=== PATIENT | male | born 1965 | race Caucasian/White ===

== ENCOUNTER → 2021-09-15 02:17 | Outpatient (CLI) | payer MEDICARE, SELFPAY ==
[2021-09-15 16:40] LABS: SARS-CoV-2 RNA PCR Negative
== END ==
PROVIDERS: PCP Internal Medicine; Visit Provider Internal Medicine
DX: J01.90 Acute sinusitis, unspecified (principal); Z20.822 Contact with and (suspected) exposure to COVID-19
CPT/HCPCS: C9803; U0003; U0005

== ENCOUNTER 2022-11-15 08:06 | Outpatient (CLI) | payer MEDICARE, SELFPAY ==
--- NOTE | 2022-11-27 20:25 | WPDSLEEPSTUD ---
Sleep Study Date of Study: 11/15/22 Ordering Provider: Alejandro Castillo MD Interpreting Physician: Nilda Curtis DO Sleep Study Type: CPAP Titration Height: 1.78 m Weight: 95.254 kg Body Mass Index: 30.1 Neck Circumference (inches): 16 [place]: 4 Reason for Sleep Study The patient had a WatchPAT home sleep study on 08/22/2022 that showed an overall AHI of 8.5 with desaturation down to 89% using AASM criteria. Sleep History The patient is a 57 year male with hypertension, hypothyroidism, anxiety, bipolar disorder, and PTSD that had a sleep study ordered by his enterprise mobility architect for evaluation of sleep apnea. The home sleep study was positive for mild sleep apnea. The patient was referred to our sleep lab for a PAP titration study. He denies awakening from sleep short of breath. He denies awakening at night with heartburn, belching or cough. He occasionally snores but it is never loud enough that others complain. He constantly has trouble sleeping when he has a cold. He denies waking up gasping for air throughout the night. He denies having breathing problems at night observed by himself or others. He frequently sweats excessively at night. He frequently has heart palpitations or irregular heartbeats during the night. He occasionally falls asleep during the day but never while driving. He denies sleep paralysis, cataplexy and hypnagogic / hypnopompic hallucinations. He denies having trouble at school or work due to sleepiness. He occasionally feels afraid of going to sleep. He denies having nightmares. He denies remembering his dreams. He occasionally has thoughts racing through his mind. He frequently feels sad, depressed and anxious. He occasionally has muscular tension. He rarely notices parts of his body jerk. He occasionally kicks during the night. He denies having crawling and aching feelings in his legs. He frequently has leg pain during the night. He constantly grinds his teeth during sleep and occasionally awakens with morning jaw pain. He frequently is bothered by pain during the day and occasionally awakened by pain during the night. He denies waking up feeling stiff in the morning. He denies waking up with sore or achy muscles. He occasionally wakes up with pain in the neck, spine and other joints. The patient goes to bed between 2-3 a.m. on both weekdays and weekends. It takes him 30 minutes to fall asleep. He wakes up twice throughout the night to urinate and it takes 5-10 minutes to fall back asleep. He wakes up between 9-10 a.m. on both weekdays and weekends. He typically gets 5 hours of sleep per night. He will stay in bed for 10 minutes after waking up in the morning. He currently lives with his parents. He denies consuming any caffeinated beverages within 2 hours of bedtime. He does not engage in physical exercise before bedtime. He will read before falling asleep. He will take naps in the afternoon or the evening and they are refreshing. He consumes 1-2 caffeinated beverages per day. He denies tobacco, alcohol and recreational drug use. [facility] Family History Family History Father Hypertension Family history of malignant neoplasm of urinary bladder Social History Social History Smoking status: Never smoker Alcohol intake: never Sleep Procedure This test was performed using the INTEX Program SleepGoPollGo multiple channel system including EOG, EEG, submental EMG, EKG, nasal and oral airflow using thermistors and nasal pressure sensors, chest and abdominal belts for body position data, and pulse oximetry. Video monitoring was also performed. The study was scored using [facility] guidelines. Sleep Architecture The patient had a total recording time of 454.2 minutes and total sleep time of 247.5 minutes.? The sleep efficiency was 54.5%.? Sleep latency was 25.1 minutes and REM latency was 309?minute
[2022-11-27 20:30] VITALS: BMI 30.1
== END 2022-11-16 06:32 | disposition home or self-care (01) ==
LOC: ANHCSM 08:08
PROVIDERS: PCP Internal Medicine; Visit Provider Internal Medicine Cardiovascular Disease
DX: G47.33 Obstructive sleep apnea (adult) (pediatric) (principal); F43.10 Post-traumatic stress disorder, unspecified; E03.9 Hypothyroidism, unspecified; I10 Essential (primary) hypertension; R53.83 Other fatigue
CPT/HCPCS: 95811

== ENCOUNTER 2023-01-03 09:48 | Emergency (ER) | payer MEDICARE, SELFPAY ==
[2023-01-03 10:02] VITALS: BP 162/77; PULSE 58; RESP 20; TEMP 36.2; O2SAT 100
--- NOTE | 2023-01-03 12:55 | ED.GENADULT ---
HPI - General Adult General Chief complaint: Unspecified Stated complaint: mouth, throat pain Time Seen by Provider: 01/03/23 12:08 History of Present Illness HPI narrative: Patient is a 57-year-old male presenting with a rash. Patient states that he was diagnosed with a rash about a month ago. He was treated with nystatin which resulted in his tongue swelling about a day later. States that it eventually resolved and then his field reviewer started him on a new inhaler that again brought the thrush back. States that he was not treated at all this time and it resolved on its own. Unfortunately, over the weekend he again had a flare of thrush. States there is white stuff in his throat and under his tongue and it hurts. He called his primary care doctor who told him to come to the ER since he reacted to nystatin last time. He denies any anaphylactic symptoms. He denies any other complaints at this time other than dysphagia. Related Data Home Medications Medication Instructions Recorded Confirmed atenolol 25 mg tablet mg 01/03/23 budesonide-formoterol HFA 160 inhalation 01/03/23 01/03/23 mcg-4.5 mcg/actuation aerosol inhaler (Symbicort) clonazepam 0.5 mg tablet mg 01/03/23 inhalational spacing device 01/03/23 01/03/23 (ProChamber) lamotrigine 100 mg tablet mg 01/03/23 levothyroxine 25 mcg tablet mcg 01/03/23 lisinopril 10 mg tablet mg 01/03/23 lisinopril 20 tablet 01/03/23 mg-hydrochlorothiazide 12.5 mg tablet losartan 50 mg-hydrochlorothiazide tablet 01/03/23 12.5 mg tablet nystatin 100,000 unit/mL oral 01/03/23 suspension Allergies Allergy/AdvReac Type Severity Reaction Status Date / Time latex Allergy Unknown Unknown Verified 01/03/23 11:30 budesonide Allergy Hives Verified 01/03/23 11:31 desoximetasone Allergy Hives Verified 01/03/23 11:31 Review of Systems Review of Systems: All systems reviewed & are unremarkable except as noted in HPI and below PMFSH Family History Family History Father Hypertension Family history of malignant neoplasm of urinary bladder Social History Social History Smoking status: Never smoker Alcohol intake: never Exam Narrative: GENERAL: Well-appearing, in no acute distress, pleasant and cooperative HEAD: Normocephalic, atraumatic. EYES: PERRLA and EOMI. ENT: + Oral and pharyngeal thrush, no other abnormalities noted NECK: Supple. CHEST: Clear to auscultation. No respiratory distress. HEART: Regular rate and rhythm ABDOMEN: Nondistended EXTREMITIES: Normal range of motion. No edema. SKIN: Warm, dry, no rash. NEURO: Alert and oriented x3. PSYCH: Normal mood and affect. Course Vital Signs Vital signs: Vital Signs Temperature 97.1 F L 01/03/23 10:02 Pulse Rate 58 L 01/03/23 10:02 Respiratory Rate 01/03/23 10:02 Blood Pressure 162/77 H 01/03/23 10:02 Pulse Oximetry 100 01/03/23 10:02 Oxygen Delivery Room Air 01/03/23 10:02 Temperature 97.1 F L 01/03/23 10:02 Pulse Rate 58 L 01/03/23 10:02 Respiratory Rate 20 01/03/23 10:02 Blood Pressure 162/77 H 01/03/23 10:02 Pulse Oximetry 100 01/03/23 10:02 Oxygen Delivery Room Air 01/03/23 10:02 Medical Decision Making [facility] Narrative Medical decision making narrative: Patient is a 57-year-old male presenting with oral and pharyngeal thrush. Vitals are stable. Exam remarkable for the above. States that he had a bad reaction to nystatin a few weeks ago so when he called his PCP today he was told to come to the ER. Exam is concerning for thrush. We will start him on systemic fluconazole. He has an appointment with his field reviewer on Saturday which he was advised to keep. Recommended PCP follow-up and appropriate return precautions given. Discharged in stable condition. Differential Diagnosis Differential Diagnosis: Thrush, pharyngitis
== END 2023-01-03 13:15 | disposition home or self-care (01) ==
PROVIDERS: Emergency Provider Emergency Medicine; PCP Internal Medicine
DX: B37.0 Candidal stomatitis (principal); B37.81 Candidal esophagitis
CPT/HCPCS: 99283

== ENCOUNTER 2023-11-01 14:09 | Outpatient (CLI) | payer MEDICARE, SELFPAY ==
[2023-11-01 15:27] LABS: Strep Group A RT-PCR NOT DETECTED (Negative)
[2023-11-01 15:39] LABS: Influenza A QL RT-PCR Negative (Negative); Influenza B QL RT-PCR Negative (Negative); RSV RNA, RT-PCR Negative (Negative); SARS-CoV-2 RNA PCR Negative (Negative)
== END 2023-11-01 14:10 | disposition home or self-care (01) ==
LOC: ANHLAB 14:12
PROVIDERS: PCP Internal Medicine; Visit Provider Internal Medicine
DX: J06.9 Acute upper respiratory infection, unspecified (principal); Z20.822 Contact with and (suspected) exposure to COVID-19
CPT/HCPCS: 87637; 87651

== ENCOUNTER 2024-07-18 20:04 | Emergency (ER) | payer MEDICARE, SELFPAY ==
--- NOTE | ~2024-07-18 | XR_ITS ---
XR knee LT 3V Ordering provider: Jorge L Ortega PA-C History: . fall, L knee pain . Comparison: None. FINDINGS: BONES: No acute fracture or dislocation. JOINT SPACES: Normal. SOFT TISSUES: Normal. IMPRESSION: No acute osseous abnormality left knee. Reviewed, dictated and finalized at location A.
--- NOTE | ~2024-07-18 | CT_ITS ---
CT brain wo con Ordering provider: Zenobia Munroe MD History: 59 years Male with . fall . Comparison: None. Technique: CT of the head without contrast. Radiation reduction technique utilized.The dose-length pr oduct was 681 mGy-cm. FINDINGS: BRAIN PARENCHYMA AND CSF SPACES: No midline shift, mass effect or hemorrhage. The brain parenchyma a nd CSF spaces are otherwise normal. VISUALIZED PARANASAL SINUSES: Well aerated. MASTOIDS: Well aerated. BONES: The bones appear intact. SOFT TISSUES: Visualized nasopharynx is normal. Superficial soft tissues are normal. IMPRESSION: No acute intracranial findings. Reviewed, dictated and finalized at location A.
--- NOTE | ~2024-07-18 | XR_ITS ---
XR elbow LT min 3V Ordering provider: Jorge L Ortega PA-C History: . fall, L elbow injury . Comparison: None. FINDINGS: BONES: No acute fracture or dislocation. JOINT SPACES: Normal. SOFT TISSUES: Normal. No definite joint effusion. IMPRESSION: No acute osseous abnormality left elbow. Reviewed, dictated and finalized at location A.
--- NOTE | ~2024-07-18 | CT_ITS ---
CT facial & cervical spine wo Ordering provider: Zenobia Munroe History: . fall . Comparison: None. Technique: Thin slice axial CT of the facial bones was performed without contrast. Coronal and sagit blanche reformatted images were also obtained. . Automated exposure control and iterative reconstruction technique were employed. The dose-length product was 416.05 mGy-cm. FINDINGS: PARANASAL SINUSES: Well aerated. BONES: No facial fracture including no nasal bone fracture. ORBITS AND SUPERFICIAL SOFT TISSUES: The optic globes and orbits are normal. The superficial soft tis sues are normal. VISUALIZED MASTOIDS: Well aerated. LIMITED VISUALIZED BRAIN PARENCHYMA: Normal. IMPRESSION: No facial fracture. The CT facial & cervical spine wo Ordering provider: Zenobia Munroe History: . fall . Comparison: None. Technique: CT of the cervical spine was performed without contrast. Sagittal and coronal reformatted images were also obtained and reviewed. Automated exposure control and iterative reconstruction kuldip hnique were employed. The dose-length product was 416.05 mGy-cm. FINDINGS: VERTEBRAE: No subluxation or acute fracture. The occipital condyles are intact. Degenerative changes of the spine. DISC SPACES: Slight narrowing of the disc C5-C6. Multilevel uncovertebral joint osteoarthritic change s. Narrowing of the right foramen at the level of C3-C4. PARASPINOUS SOFT TISSUES: Normal. IMPRESSION: No acute osseous abnormality cervical spine. Reviewed, dictated and finalized at location A. IMPRESSION: No facial fracture. The CT facial & cervical spine wo Ordering provider: Zenobia Munroe History: . fall . Comparison: None. Technique: CT of the cervical spine was performed without contrast. Sagittal a nd coronal reformatted images were also obtained and reviewed. Automated expos ure control and iterative reconstruction technique were employed. The dose-humphrey th product was 416.05 mGy-cm. FINDINGS: VERTEBRAE: No subluxation or acute fracture. The occipital condyles are intact. Degenerative changes of the spine. DISC SPACES: Slight narrowing of the disc C5-C6. Multilevel uncovertebral joint osteoarthritic changes. Narrowing of the right foramen at the level of C3-C4. PARASPINOUS SOFT TISSUES: Normal.
[2024-07-18 20:05] VITALS: BP 180/98; PULSE 94; RESP 16; TEMP 36.2; O2SAT 100
--- OUTSIDE RECORDS SUMMARY | 2024-07-18 20:06 | XMS_ITS | Continuity of Care Document ---
Author Organization [facility] Address [address] [place] [address] Phone Care Team Providers Care Business Travel Consultant Name Role Phone Oracio Newman MD Unavailable Unavailable Allergies, Adverse Reactions, Alerts Substance Reaction Status Criticality No Known Allergies Active No Inform ation Medications Medication Instructions Dosage Effective Dates (start - stop) Status Comments lisinopril 10 mg tablet take 1 tablet by oral route every day 10 MG - Active Tirosint 50 mcg capsule take 1 capsule by oral route every day 50 MCG - Active lamotrigine 100 mg tablet take 1 tablet by oral route every day 100 MG - Active atenolol 25 mg tablet take 1 tablet by o ral route every day 25 MG - Active Abilify 5 mg tablet take 1 tablet by ora l route every day 5 MG - Active Procedures Procedure Date POSTOP FOLLOW-UP VISIT OFFICE/OUTPATIENT VISIT [facility] Advance Directives Directive Yes / No Effective Date File Name No Information Encounters Encounter Description Practice Location Reason(s) For Visit Diagnoses Date Provider Providers Copied on Encounter [facility], [address] [place] [address], [id number], tel:[phone] [facility] Encounter for other orthopedic aftercare 8 Trent Narayanan. [address] [place] [address], [id number] . tel: [phone] OFFICE/OUTPAT IENT VISIT [facility], [address] [place] [address], [address], tel:[phone] [facility] Carpal tunnel syndrome of right wristBody mass index (BMI) 27.0-27.9, adult 8 Trent Narayanan. [address] [place], [place], [id number] . tel: [phone] [facility], [address], [place], [address], tel:[phone] [facility] Carpal tunnel syndrome of right wrist 8 Trent Narayanan. [address] [place], [place], [id number] . tel: [phone] Family History Family Member Type Diagnosis Age At Onset Mother Problem (finding) Alive and well Payers Payer name Insurance type Covered republican ID Davi rojas(s) Medicare E2 [id number] Aetna Life Medicare Supplement Plan [id number] Social History Type Description Quantity Date Captured Comments Alcohol Use Details Unknown Caffeine Use Details Unknown Tobacco Use Status No Information Smoking Status Never smoker Sex Male Chief Complaint And Reason For Visit No Information Reason For Referral Reason For Referral No Information Plan Of Treatment Date Type Action Status Referral Ordered: ELECTROCARDIOGRAM COMPLETE ordered History Of Present Illness Encounter Date Complaint History Of Prese nt Illness No Information Functional Status Date Functional Assessmen t No Information Instructions Date Instruction Additional Infor mation Take medication as directed. Rel ated to Other specified postprocedural states Activity as tolerated. Related t o Other specified postprocedural states Giving encouragement to exercise Related to Body mass index (BMI) 27.0-27.9, adult Apply ice as instructed. Related to Carpal tunnel syndrome of right wrist Activity as tolerated. Related t o Carpal tunnel syndrome of right wrist Take medications as directed. Re lated to Carpal tunnel syndrome of right wrist Splint as needed. Related to Car pal tunnel syndrome of right wrist Ice as needed. Related to Carpa l tunnel syndrome of right wrist Assessments Type Assessment Date assessment Encounter for other orthopedic a ftercare Patient Care Teams Name Effective Dates (start - stop) Status Members No Information
--- OUTSIDE RECORDS SUMMARY | 2024-07-18 20:06 | XMS_ITS | Encounter Summary ---
Author Organization [facility] Address [address] [place] [address] Care Team Providers Care Radio Equipment Installer Name Role Phone Marleny Orozco MD Primary Care Provider Encounter Details Date Type Department Care Team (Late st Contact Info) Description 09/11/2006 Outpatient [facility] [address] [place] [address] [address]. [place], [place] [id number] Mallika Schmitz MD Social History Tobacco Use Types Packs/Day Years Used Date Smoking Tobacco: Never Assessed Sex and Gender Information Value Date Recorded Sex Assigned at Not on file Legal Sex Male 4:01 AM PHARMACY ACCOUNT DIRECTOR Gender Identity Not on file Sexual Orientation Not on file documented as of this encounter Plan of Treatment Not on file documented as of this encounter Visit Diagnoses Not on filedocumented in this encounter Care Teams Radio Equipment Installer Relationship Specialty Start Date End Date Marleny Orozco MD PCP - General Internal Medicine 12/17/17 documented as of this encounter
--- OUTSIDE RECORDS SUMMARY | 2024-07-18 20:06 | XMS_ITS | Encounter Summary ---
Author Organization [facility] Address [address] [place] [address] Care Team Providers Care Com Writer Name Role Phone Marleny Orozco MD Primary Care Provider Encounter Details Date Type Department Care Team (Latest Contact Info) Description 07/21/1999 Outpatient [facility] Luis Alberto Murillo MD [address] [place] [address] Depressive disorder, not elsewhere classified (Primary Dx) Social History Tobacco Use Types Packs/Day Years Used Date Smoking Tobacco: Never Assessed Sex and Gender Information Value Date Recorded Sex Assigned at Not on file Legal Sex Male 4:01 AM GROUP ACCOUNT DIRECTOR Gender Identity Not on file Sexual Orientation Not on file documented as of this encounter Plan of Treatment Not on file documented as of this encounter Visit Diagnoses Diagnosis Depressive disorder, not elsewhere classified- Primary documented in this encounter Care Teams Com Writer Relationship Specialty Start Date End Date Marleny Orozco MD PCP - General Internal Medicine 12/17/17 documented as of this encounter
--- OUTSIDE RECORDS SUMMARY | 2024-07-18 20:06 | XMS_ITS | Encounter Summary ---
Author Organization [email or web address] Address [address] [place] [address] Care Team Providers Care Grey Iron Molder Name Role Phone Marleny Orozco MD Primary Care Provider Encounter Details Date Type Department Care Team (Late st Contact Info) Description 10/10/2006 Outpatient [facility] [address] [place] [address] 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
--- OUTSIDE RECORDS SUMMARY | 2024-07-18 20:07 | XMS_ITS | Referral Summary ---
Author Organization [address] Address [address] [place] [id number] Care Team Providers Care Graduate Rn Name Role Phone Del Orozco MD Primary Care Provide r Allergies Active Allergy Reactions Criticality Noted Date Comments Adhesive Rash Medium 09/14/2019 Budesonide Rash Medium 01/08/2024 Ciprofloxacin Other (See comments) Low 01/08/2024 Desoximetasone Rash Medium 01/08/2024 Hay Fever And Allergy Relief Eye irritation,Headache,Rhin itis Low 09/14/2020 Mupirocin Rash Medium 01/08/2024 Omeprazole Rash Medium 01/08/2024 Medications lamoTRIgine (LaMICtal) 100 mg tablet take 3 Tablet (300MG) by ORAL route every day 90 6 03/02/2016 Active atenolol (TENORMIN) 25 mg tablet Take 1 tablet (25 mg total) by mouth 2 (two) times a day. 180 tablet 3 11/08/2016 Active multivitamin capsule Take 1 capsule by mouth daily Active clonazePAM (KlonoPIN) 0.5 mg tablet TAKE 1 2 (ONE HALF) TABLET BY MOUTH TWICE DAILY FOR 30 DAYS 08/17/2019 Active levothyroxine (SYNTHROID) 25 mcg tablet Take 1 tablet (25 mcg total) by mouth daily 12/23/2020 Active losartan-hydroch lorothiazide (HYZAAR) 100-25 mg per tablet Take 1 tablet by mouth daily Active melatonin 5 mg tablet Active ibuprofen 200 mg tab/cap Take by mouth every 6 (six) hours as needed for pain Active tamsulosin (FLOMAX) 0.4 mg extended release capsuleIndicatio ns:benign prostatic hyperplasia with lower urinary tract sx Take 1 capsule (0.4 mg total) by mouth daily 90 capsule 3 02/19/2024 02/14/20 25 Active Active Problems Problem Noted Date Diagnosed Date Chronic prostatitis 02/22/2023 History of BPH 02/08/2023 Recurrent UTI (urinary tract infection) 02/09/20 Nephrolithiasis 02/08/2023 Hypertensive disorder 03/17/2021 Paronychia of toe of left foot 12/22/2020 Lower urinary tract symptoms (LUTS) 08/06/2019 Overview (08/06/2019): Added automatically from request for surgery [id number] Benign prostatic hyperplasia with lower urinary tract symptoms 08/06/2019 Overview (08/06/2019): Added automatically from request for surgery [id number] Accessory navicular bone of foot 04/30/2019 Contusion of toe with damage to nail 04/30/2019 Curly toe 04/30/2019 Spinal cord effacement/borde rline compression without myelopathy 07/23/2018 Spondylosis of cervical ryan on without myelopathy or radiculopathy 07/23/2018 Bilateral carpal tunnel syndrome 10/25/2017 Bipolar disorder 05/01/2017 Sensorineural hearing loss (SNHL) of both ears 0 11/20/2016 Assessment & Plan (11/20/2016 3:14 PM CDT): Audiogram today shows normal hearing sloping to mild sensorineural hearing los sin both ears. I have recommended patient wear noise protection if he participates in shooting. Follow up with annual hearing test or as needed for any perceived change in hearing. Tinnitus 11/20/2016 Assessment & Plan (11/20/2016 3:13 PM CDT): Recommend noise masking at night. Impacted cerumen 09/07/2014 Overview (07/19/2016): Cerumen impaction Assessment & Plan (11/20/2016 3:15 PM CDT): Bilateral cerumen impaction removed by irrigation and suction. Patient tolerated this without difficulty. Mild irritation of ear canals noted. Patient treated with DermOtic and intructed to avoid Q-tips. Follow up for annual or prn cleaning. Immunizations Immunization Administration Dates Next Due Influenza, Trivalent, IM (MDV) 01/20/2015 Social History Tobacco Use Types Packs/Day Years Used Date Smoking Tobacco: Never Smokeless Tobacco: Never Alcohol Use Standard Drinks/Week Comments No 0 (1 standard drink = 0.6 oz pur e alcohol) Sex and Gender Information Value Date Recorded Sex Assigned at Not on file Legal Sex Male 12:03 PM PENAL OFFICER Gender Identity Male 09/14/2019 9:01 AM CDT Sexual Orientation Straight 09/14/2019 9: 01 AM CDT Last Filed Vital Signs Vital Sign Reading Time Taken Comments Blood Pressure 152/85 03/03/2019 12:56 PM PENAL OFFICER Pulse 68 03/03/2019 12:56 PM PENAL OFFICER Temperature 37 C (98.6 F) 09/14/2019 10:20 AM CDT Respiratory Rate - - Oxygen Saturation 98% 10/30/2016 11:28 AM CDT Inhaled Oxygen Concentration - - Weight 89.8 kg (198 lb) 03/17/2021 9:57 AM PENAL OFFICER Height 177.8 cm (5' 10 ) 03/17/2021 9:57 AM PENAL OFFICER Body Mass Index 28.41 03/17/2021 9:57 AM PENAL OFFICER Plan of Treatment Not on file Procedures Procedure Name Priority Date/Time Associated Diagnosis Comments PSA SCREEN Routine 03/29/2020 9:40 AM PENAL OFFICER Hypertrophy of prostate with urinary obstruction HEPATITIS PANEL, ACUTE Routine 10/24/2016 9:04 AM CDT from Last 3 Months or Most Recently Relevant to Health Maintenance Results * PSA screen (03/29/2020 9:40 AM PENAL OFFICER) PSA 1.4 0.0 - 4.0 ng/mL [facility] - 01 Comment: Lizet ECLIA methodology. According to the [place] [employer], Serum PSA should decrease and remain at undetectable levels after radical prostatectomy. The AUA defines biochemical recurrence as an initial PSA value 0.2 ng/mL or greater followed by a subsequent confirmatory PSA value 0.2 ng/mL or greater. Values obtained with different assay methods or kits cannot be used interchangeably. Results cannot be interpreted as absolute evidence of the presence or absence of malignant disease. Blood specimen (specimen) 03/29/2020 9:40 AM PENAL OFFICER 03/29/2020 Narrative [facility] - 03/30/2020 8:14 AM PENAL OFFICER Performed at: [facility] [id number] Commercial Accountant: Pito Posadas PhD, Phone: [phone] Long Lema MD LAB BLOOD ORDERABLE S Final Result Performing Organization Address [facility] Co de Phone Number [facility] - * Hepatitis panel, acute (10/24/2016 9:04 AM CDT) Hep A IgM Negative Negative [facility] - 01 HepBsAg Negative Negative [facility] - 01 Hep B core IgM Negative Negative [facility] - 01 Hep C Ab <0.1 0.0 - 0.9 s/co ratio [facility] - 01 Comment: Negative: < 0.8 Indeterminate: 0.8 - 0.9 Positive: > 0.9 The CDC recommends that a positive HCV antibody result be followed up with a HCV Nucleic Acid Amplification test ([id number]). Blood specimen (specimen) 10/24/2016 9:04 AM CDT 10/24/2016 Narrative [facility] - 10/25/2016 4:11 AM CDT Performed at: [facility] [id number] Commercial Accountant: Pito Posadas PhD, Phone: [phone] Darron De La Torre LAB MICROBIOLOGY - GENERAL ORDER EVARISTO Final Result Performing Organization Address [facility] Co de Phone Number [facility] - 01 from Last 3 Months or Most Recently Relevant to Health Maintenance Insurance T SENIOR SUPPLEMENT MEDICARE T SENIOR SUPPLEMENT MEDICARE MEDICARE AET[employer] SENIOR SUPPLEMENT Care Teams Graduate Rn Relationship Specialty Start Date End Date Del Orozco MD [address] [address] PCP - General Internal Medicine 02/27/19
--- OUTSIDE RECORDS SUMMARY | 2024-07-18 20:07 | XMS_ITS | Encounter Summary ---
Author Organization [facility] Address [address] [place] [address] Care Team Providers Care Keyboard Specialist Name Role Phone Del Orozco MD Primary Care Provide r Encounter Details Date Type Department Care Team (Late st Contact Info) Description 10/01/2019 Telephone [facility] [address] [place] [address] Keiry Duran [place] Social History Tobacco Use Types Packs/Day Years Used Date Smoking Tobacco: Never Smokeless Tobacco: Never Alcohol Use Standard Drinks/Week Comments No 0 (1 standard drink = 0.6 oz pur e alcohol) Sex and Gender Information Value Date Recorded Sex Assigned at Not on file Legal Sex Male 12:03 PM CLAY STAIN 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
--- OUTSIDE RECORDS SUMMARY | 2024-07-18 20:07 | XMS_ITS | Encounter Summary ---
Author Organization [facility] Address [address] [place] [address] Care Team Providers Care Websphere Process Server Developer Name Role Phone Marleny Orozco MD Primary Care Provider Encounter Details Date Type Department Care Team (Late st Contact Info) Description 01/10/2007 Outpatient [facility] [address] [place] [address] [place] [address] Mallika Schmitz MD Social History Tobacco Use Types Packs/Day Years Used Date Smoking Tobacco: Never Assessed Sex and Gender Information Value Date Recorded Sex Assigned at Not on file Legal Sex Male 4:01 AM CHIEF STRATEGY OFFICER Gender Identity Not on file Sexual Orientation Not on file documented as of this encounter Plan of Treatment Not on file documented as of this encounter Visit Diagnoses Not on filedocumented in this encounter Care Teams Websphere Process Server Developer Relationship Specialty Start Date End Date Marleny Orozco MD PCP - General Internal Medicine 12/17/17 documented as of this encounter
--- OUTSIDE RECORDS SUMMARY | 2024-07-18 20:07 | XMS_ITS | Encounter Summary ---
Author Organization [facility] Address [address] [place] [address] Care Team Providers Care Cardboard Inserter Name Role Phone Marleny Orozco MD Primary Care Provider Encounter Details Date Type Department Care Team (Late st Contact Info) Description 03/27/2007 Outpatient [facility] [address] [place] [address] [place] [address] Mallika Schmitz MD Social History Tobacco Use Types Packs/Day Years Used Date Smoking Tobacco: Never Assessed Sex and Gender Information Value Date Recorded Sex Assigned at Not on file Legal Sex Male 4:01 AM PLAYGROUND MONITOR Gender Identity Not on file Sexual Orientation Not on file documented as of this encounter Plan of Treatment Not on file documented as of this encounter Visit Diagnoses Not on filedocumented in this encounter Care Teams Cardboard Inserter Relationship Specialty Start Date End Date Marleny Orozco MD PCP - General Internal Medicine 12/17/17 documented as of this encounter
--- OUTSIDE RECORDS SUMMARY | 2024-07-18 20:07 | XMS_ITS | Encounter Summary ---
Author Organization [facility] Address 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
--- OUTSIDE RECORDS SUMMARY | 2024-07-18 20:07 | XMS_ITS | Clinical Summary ---
Author Organization [facility] Address [address] [place] [address] Phone Care Team Providers Care Monitor Worker Name Role Phone Marleny Orozco MD Primary Care Provider Allergies No known active allergies Medications lisinopril (PRINIVIL) 10 mg tablet Take 10 mg by mouth daily. Active atenolol (TENORMIN) 25 mg tablet Take 25 mg by mouth daily. Active levothyroxine 50 mcg tablet Take 50 mcg by mouth daily system administrator. Active lamoTRIgine (LaMICtal) 100 mg tablet Take 100 mg by mouth 3 times daily. Active escitalopram oxalate (LEXAPRO) 5 mg tablet Take 5 mg by mouth daily. 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 Gender Identity Not on file Sexual Orientation Not on file Last Filed Vital Signs Vital Sign Reading Time Taken Comments Blood Pressure 140/88 12/17/2017 12:00 PM CDT Pulse 67 12/17/2017 12:00 PM CDT Temperature 36.7 C (98.1 F) 12/17/2017 9:45 AM CDT Respiratory Rate 14 12/17/2017 10:41 AM CDT Oxygen Saturation 100% 12/17/2017 12:00 PM CDT Inhaled Oxygen Concentration - - Weight 86.2 kg (190 lb) 12/17/2017 9:45 AM CDT Height 177.8 cm (5' 10 ) 12/17/2017 9:45 AM CDT Body Mass Index 27.26 12/17/2017 9:45 AM CDT Plan of Treatment Health Maintenance Due Date Last Done Comments DTAP/TDAP/TD VACCINES (1 - Tdap) 1984 HEPATITIS B VACCINES (1 of 3 - 19+ 3-dose series) 04/15 COLORECTAL SCREENING 2010 Colorectal Cancer Screening 2010 FIT-DNA Q 3 years 2010 FIT/FOBT Q 1 year 2010 Flex Sig/CT Colonography Q 5 years 2010 ZOSTER VACCINE (1 of 2) 2015 INFLUENZA VACCINE (#1) 2023 01/20/2015 Insurance Care Teams Monitor Worker Relationship Specialty Start Date End Date Marleny Orozco MD PCP - General Internal Medicine 12/17/17
--- OUTSIDE RECORDS SUMMARY | 2024-07-18 20:07 | XMS_ITS | Encounter Summary ---
Author Organization [facility] Address [address] [place] [address] Care Team Providers Care Pet Stylist Name Role Phone Marleny Orozco MD Primary Care Provider Encounter Details Date Type Department Care Team (Late st Contact Info) Description 07/08/2007 Outpatient [facility] [address] [place] [address] 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
--- OUTSIDE RECORDS SUMMARY | 2024-07-18 20:07 | XMS_ITS | CONTINUITY OF CARE DOCUMENT ---
Author Name jamie ayala Address Unknown Organization [facility] Address [address] [address] [place] [address] Phone [phone] Care Team Providers Care Kit Planner Name Role Phone Alejandro Castillo MD Unavailable [phone] ARIEL AYALA, NATHALIA Unavailable NATHALIA GEORGE MD Unavailable [phone] PROBLEMS Condition Status Date Provider Notes Hypertension active Anisa Farah Anxiety disorder generalized active Matthew Farah Bipolar disorder active Anisa Quinonez r PTSD active Anisa Farah Carpal tunnel active Anisa Farah Cold hands active Anisa Farah Hypothyroidism active Anisa Farah Fatigue active Alejandro Castillo MD SHE[place]BY, adult active Tiffani Ventimiglia [employer] Palpitations active Chon Norton Cardiology examination active Alejandro Coto ENCOUNTERS Date Type Provider Location Encounter Diag nosis - In-person encounter Office Visit Alejandro Castillo MD [facility] Cardiology examination - In-person encounter Office Visit Alejandro Castillo MD [facility] - In-person encounter Office Visit Alejandro Castillo MD [facility] Palpitations - In-person encounter Office Visit Alejandro Castillo MD [facility] - In-person encounter Office Visit Alejandro Castillo MD [facility] SHELBY, adult - In-person encounter Office Visit Alejandro Castillo MD [facility] Fatigue - In-person encounter Office Visit Alejandro Castillo MD [facility] - In-person encounter Office Visit Alejandro Castillo MD [facility] - In-person encounter Office Visit Alejandro Castillo MD [facility] HypertensionAnxiety disorder generalizedBipolar disorderPTSDCarpal tunnelCold handsHypothyroidism VITAL SIGNS Date Observation Value Provider Body Mass Index (Ratio) 31.28 kg/m2 Lam Metz blood pressure, diastolic 80 mm[Hg] anjel Iniguez blood pressure, systolic 140 mm[Hg] Fanta oakley Iniguez oxygen saturation, oximetry 98 % Hortensia Iniguez pulse rate 64 /min Hortensia Iniguez respiratory rate E&M 12 /min Hortensia Iniguez weight E&M 218 [lb_av] Hortensia Iniguez height E&M 70 [in_i] Hortensia Iniguez blood pressure, cuff size regular anjel Iniguez Body Mass Index (Ratio) 29.84 kg/m2 Gabriel lFood blood pressure, diastolic 87 mm[Hg] Ja rret blood pressure, systolic 152 mm[Hg] Jar ret pulse rate 62 /min Lucien blood pressure, cuff size regular Ja rret oxygen saturation, oximetry 97 % Lucien respiratory rate E&M 14 /min Lucien 2023/07/17 weight E&M 208 [lb_av] height E&M 70 [in_i] Lucien Body Mass Index (Ratio) 29.84 kg/m2 [facility] am Cierra blood pressure, cuff size regular Ja rret blood pressure, diastolic 80 mm[Hg] Ja rret blood pressure, systolic 158 mm[Hg] Jar pulse rate 63 /min Lucien respiratory rate E&M 12 /min Lucien oxygen saturation, oximetry 99 % weight E&M 208 [lb_av] Lucien height E&M 70 [in_i] Lucien Body Mass Index (Ratio) 28.98 kg/m2 [facility] am blood pressure, cuff size regular [facility], [facility] 89 mm[Hg] [facility], systolic 149 mm[Hg] [facility] [place] pulse rate 61 /min Lucien oxygen saturation, oximetry 98 % Lucien respiratory rate E&M 12 /min Lucien weight E&M 202 [lb_av] Lucien height E&M 70 [in_i] Lucien Body Mass Index (Ratio) 29.84 kg/m2 Lam Metz pulse rate 61 /min Maliha Kelly blood pressure, diastolic 90 mm[Hg] Mone Kelly blood pressure, systolic 168 mm[Hg] Haydee Kelly oxygen saturation, oximetry 98 % Maliha Kelly weight E&M 208 [lb_av] Maliha Robin blood pressure, cuff size large An ganesh Robin height E&M 70 [in_i] Maliha Robin Body Mass Index (Ratio) 29.27 kg/m2 Alejandro Castillo MD blood pressure, diastolic 77 mm[Hg] Li nkLog blood pressure, systolic 125 mm[Hg] Jessica kLog pulse rate 63 /min Dorita Thomas blood pressure, cuff size regular Sh josh Thomas blood pressure, diastolic 77 mm[Hg] Sh josh Thomas blood pressure, systolic 125 mm[Hg] She pedro Thomas oxygen saturation, oximetry 96 % Dorita Thomas respiratory rate E&M 18 /min Dorita Thomas weight E&M 204 [lb_av] Dorita Thomas height E&M 70 [in_i] Dorita Thomas Body Mass Index (Ratio) 29.27 kg/m2 Polina hernandezmarleni Farah blood pressure, diastolic 97 mm[Hg] Mary reedle Schmitt blood pressure, systolic 170 mm[Hg] Kendall jaspreet Schmitt oxygen saturation, oximetry 97 % Mya Schmitt pulse rate 74 /min Mya coto weight E&M 204 [lb_av] Mya coto respiratory rate E&M 16 /min Rosalinda Schmitt blood pressure, cuff size large Mary jerad Schmitt height E&M 70 [in_i] Mya coto Body Mass Index (Ratio) 29.70 kg/m2 Polina melgar Sofi blood pressure, diastolic 89 mm[Hg] Sa ra Patton blood pressure, systolic 157 mm[Hg] Eric a Patton oxygen saturation, oximetry 99 % Dominique Patton respiratory rate E&M 18 /min Dominique Si ms pulse rate 68 /min Dominique Patton blood pressure, cuff size regular Sa ra Patton weight E&M 207 [lb_av] Dominique Patton height E&M 70 [in_i] Dominique Patton Body Mass Index (Ratio) 28.41 kg/m2 Polina melgar Evelinemeyer blood pressure, diastolic 88 mm[Hg] Li nkLogic blood pressure, systolic 164 mm[Hg] Jesscia kLogic blood pressure, diastolic 88 mm[Hg] Ca therine [place] blood pressure, systolic 164 mm[Hg] Cat herine Kelechi oxygen saturation, oximetry 99 % Petra [place] respiratory rate E&M 16 /min Catheri ne Kelechi pulse rate 70 /min Petra [place] weight E&M 198 [lb_av] Petra Kelechi height E&M 70 [in_i] Petra Kelechi blood pressure, cuff size large Ca therine Kelechi ALLERGIES Allergy Name Onset Date Reaction Criticality Status TOPICAL STEROIDS Low Criticality act ray RESULTS Date Observation Value Provider Reference Range Interpretat ion Location cold agglutinin, serum Negative LinkLogic Neg <1:32 HISTORY OF MEDICATION USE Medication Status Instructions Dates Provider Indications Com ments tamsulosin 0.4 mg capsule active Alejandro Castillo MD losartan-hydrochl orothiazide 100-25 mg tablet active TAKE 1 TABLET BY MOUTH EVERY DAY [facility] omeprazole 40 mg capsule,delayed release(DR/EC) active Alejandro Castillo MD losartan-hydrochl orothiazide 100-25 mg tablet completed Take 1 tablet by mouth once a day - [facility] loratadine 10 mg tablet active TAKE 1 TABLET BY MOUTH EVERY DAY NEEDED Tiffani Ventimiglia [employer] lisinopril-hydroc hlorothiazide 20-12.5 mg tablet completed Take 1 tablet by mouth once a day - Tiffani Ventimiglia [employer] levothyroxine 25 mcg tablet active Dominiquegalina Patton clonazepam 0.5 mg tablet active Take tablet by mouth twice a day Tiffani Ventimiglia [employer] lamotrigine 100 mg tablet active Take tablet by mouth three times a day Petra [place] lisinopril 10 mg tablet completed Take tablet by mouth once a day - Alejandro Castillo MD atenolol 25 mg tablet active Take tablet by mouth once a day Petra [place] melatonin 5 mg capsule active Take capsule by mouth once a day Petra [place] ibuprofen unspecified unspecified active Take capsule by mouth once a day Petra [place] SOCIAL HISTORY Date Observation Value Provider drug use no Pa Metz alcohol use no Pa Metz smoking status Never smoker Pa Metz drug use no Oracio Fierro h alcohol use no Oracio Fierro h smoking status Never smoker Oracio martinez drug use no Alejandro Castillo MD alcohol use no Alejandro Castillo MD smoking status Never smoker Alejandro Coto smoking status Never smoker Alejandro Coto social history reviewed E&M revi ewed - no changes required Alejandro Castillo MD drug use no Tiffani Ventimig angela [facility] alcohol use no Tiffani Ventimig angela [employer] smoking status Never smoker Maliha Kelly social history E&M S moking History: Kandice lazcano has never smoked. Alejandro Castillo MD social history reviewed E&M revgopal ewed - no changes required Alejandro Castillo MD smoking status Never smoker Dorita Thomas social history E&M S moking History: Kandice lazcano has never smoked. Alejandro Castillo MD social history reviewed E&M revi ewed - no changes required Alejandro Castillo MD smoking status Never smoker Mya Yuen and social history reviewed E&M revi ewed - no changes required Alejandro Castillo MD social history E&M S moking History: Kandice lazcano has never smoked. 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 He had difficultiues with his new CPAP machine adn will refer him to a sleep medicine specialist. B P today: 149/89 P rior BP: 168/90 (10/31/2022) His updated medication list for this problem includes: Losartan-hydrochlorothiazide 100-25 Mg Tablet (Losartan-hydrochlorothiazide) ..... Take 1 tablet by mouth once a day Atenolol 25 Mg Tablet (Atenolol) ..... Take tablet by mouth once a day Chon Norton [id number],STiffani [facility] [id number],S, H is updated medication list for this problem includes: Levothyroxine 25 Mcg Tablet (Levothyroxine) Tiffani Ventimiglia [facility] [id number],C,r ecent sleep study showed mild SHELBY. He has had weight gain, HTN, and continued fatigue. Would benefit from titration study for CPAp will arranged. Tiffani Abdalla [facility] [id number],C,B P 168/90 has been averaging 148/61 at home per RPM. He however feels he is gaining wait with lisinopril/hctz. Will transition to losartan/hctz and monitor. Will return in 3 mos or sooner if needed. T he following medications were removed from the medication list: Lisinopril-hydrochlorothiazide 20-12.5 Mg Tablet (Lisinopril-hydrochlorothiazide) ..... Take 1 tablet by mouth once a day His updated medication list for this problem includes: Losartan-hydrochlorothiazide 50-12.5 Mg Tablet (Losartan-hydrochlorothiazide) ..... Take 1 tablet by mouth once a day Atenolol 25 Mg Tablet (Atenolol) ..... Take tablet by mouth once a day Tiffani Abdalla [facility] [id number],C,H as been feeling fatigued since starting medication. Difficulty sleeping through the night, gets up frequently. Increased stress at home for the past month. WIll arrange for home sleep study and order labwork. Alejandro Castillo MD [id number],C, H is updated medication list for this problem includes: Levothyroxine 25 Mcg Tablet (Levothyroxine) Alejandro Castillo MD [id number],C,O nikki doing well, BP has improved since starting lisinopril-HCTZ daily. Monitors BP at home and says it's around 140/80. Has been feeling fatigued since starting medication. & #13;BP today: 125/77 P rior BP: 170/97 (01/31/2022) His updated medication list for this problem includes: Lisinopril-hydrochlorothiazide 20-12.5 Mg Tablet (Lisinopril-hydrochlorothiazide) ..... Take 1 tablet by mouth once a day Atenolol 25 Mg Tablet (Atenolol) ..... Take tablet by mouth once a day Alejandro Castillo MD [id number],C,H as been feeling fatigued since starting medication. Difficulty sleeping through the night, gets up frequently. Increased stress at home for the past month. Saul rrcaleb for home sleep study and order labwork. Alejandro Castillo MD [id number],C,O verall doing well. BP still elevated. Will change lisinopril to lisinopril-HCTZ 20mg-12.5 mg daily. B P today: 170/97 P rior BP: 157/89 (07/31/2021) The following medications were removed from the medication list: Lisinopril 10 Mg Tablet (Lisinopril) ..... Take tablet by mouth once a day His updated medication list for this problem includes: Lisinopril-hydrochlorothiazide 20-12.5 Mg Tablet (Lisinopril-hydrochlorothiazide) ..... Take 1 tablet by mouth once a day Atenolol 25 Mg Tablet (Atenolol) ..... Take tablet by mouth once a day Alejandro Castillo MD [id number],C, H is updated medication list for this problem includes: Levothyroxine 25 Mcg Tablet (Levothyroxine) Alejandro Castillo MD [id number],C, H is updated medication list for this problem includes: Levothyroxine 25 Mcg Tablet (Levothyroxine) Alejandro Castillo MD [id number],C, T he pt could not tolerate amlodipine b/c it caused nocturia and incontinence at night. ARterial duplex of the upper and lower extremities were normal. Echo was normal. He does not want to try Procardia at this time. He will try gloves when it is cold outside. Alejandro Castillo MD [id number],C,. Pt denies SOB and chest pain. N o palpitations. No hx of PAD. Will try amlodipine 10 mg daily. Will shcedule echo, arterial duplexes of the upper and lower extremities. & #13;BP today: 164/88 His updated medication list for this problem includes: Amlodipine 10 Mg Tablet (Amlodipine) ..... Take 1 tablet by mouth once a day Lisinopril 10 Mg Tablet (Lisinopril) ..... Take tablet by mouth once a day Atenolol 25 Mg Tablet (Atenolol) ..... Take tablet by mouth once a day Anisa Pachecobecka [id number],C, H is updated medication list for this problem includes: Levothyroxine 25 Mcg Tablet (Levothyroxine) ..... Take 1 tablet by mouth every day Anisa Mosqueramanuel [id number],C,T he pt reports pain and white discoloration of the fingers after exposure to cold, similar pain in the toes. Will shcedule echo, arterial duplexes of the upper and lower extremities. Anisaramón Mosqueramanuel Cardiology: T he patient is using CPAP on a regular basis. The patient has been benefiting from therapy and should continue use. This visit has been a part of the consistent, comprehensive, and ongoing management of the chronic medical condition(s) listed above for the patient. Pa Lashay Cardiology: nnamdi kaufman sx Pa Metz Cardiology: T elecentry showed PACs and PVCs. Echo showed normal EF and LVH. Will continue current meds. Pt denies SOB and CP and palpitations. H is updated medication list for this problem includes: Atenolol 25 Mg Tablet (Atenolol) ..... Take tablet by mouth once a day This visit has been a part of the consistent, comprehensive, and ongoing management of the chronic medical condition(s) listed above for the patient. Pa Lashay Cardiology: H is updated medication list for this problem includes: Losartan-hydrochlorothiazide 100-25 Mg Tablet (Losartan-hydrochlorothiazide) ..... Take 1 tablet by mouth every day Atenolol 25 Mg Tablet (Atenolol) ..... Take tablet by mouth once a day BP today: 140/80 P rior BP: 152/87 (10/30/2023) Pa Metz Cardiology:RPM shows BP well controlled at home B P today: 152/87 P rior BP: 158/80 (05/01/2023) His updated medication list for this problem includes: Losartan-hydrochlorothiazide 100-25 Mg Tablet (Losartan-hydrochlorothiazide) ..... Take 1 tablet by mouth once a day Atenolol 25 Mg Tablet (Atenolol) ..... Take tablet by mouth once a day This visit has been a part of the consistent, comprehensive, and ongoing management of the chronic medical condition(s) listed above for the patient. Oracio Aleena Cardiology:Telecentr y showed PACs and PVCs. Echo showed normal EF and LVH. Will continue current meds. Pt denies SOB and CP and palpitations. H is updated medication list for this problem includes: Atenolol 25 Mg Tablet (Atenolol) ..... Take tablet by mouth once a day This visit has been a part of the consistent, comprehensive, and ongoing management of the chronic medical condition(s) listed above for the patient. Oracio Flood Cardiology: H is updated medication list for this problem includes: Levothyroxine 25 Mcg Tablet (Levothyroxine) This visit has been a part of the consistent, comprehensive, and ongoing management of the chronic medical condition(s) listed above for the patient. Oracio Flood Cardiology:The patie nt is using CPAP on a regular basis. The patient has been benefiting from therapy and should continue use. Alejandro Castillo MD Cardiology: H is updated medication list for this problem includes: Levothyroxine 25 Mcg Tablet (Levothyroxine) Alejandro Castillo MD Cardiology: He also has palpitations. Will obtain 1 week telecentry and follow up echo. H is updated medication list for this problem includes: Atenolol 25 Mg Tablet (Atenolol) ..... Take tablet by mouth once a day Alejandro Castillo MD Cardiology:On occasi on, BP is not controlled. I advised him to take additional 25mg atenolol on those days. He also has palpitations. Will obtain 1 week telecentry and follow up echo. H is updated medication list for this problem includes: Losartan-hydrochlorothiazide 100-25 Mg Tablet (Losartan-hydrochlorothiazide) ..... Take 1 tablet by mouth once a day Atenolol 25 Mg Tablet (Atenolol) ..... Take tablet by mouth once a day Alejandro Castillo MD Cardiology: H is updated medication list for this problem includes: Levothyroxine 25 Mcg Tablet (Levothyroxine) Chon Norton Cardiology:denies sx Chon Amaro andrea Cardiology:will refe r him to sleep medicine specialist Chon Norton Cardiology:BP still elevated we will increase Losartan/HCTZ to 100/25mg. He had difficultiues with his new CPAP machine adn will refer him to a sleep medicine specialist. B P today: 149/89 P rior BP: 168/90 (10/31/2022) His updated medication list for this problem includes: Losartan-hydrochlorothiazide 100-25 Mg Tablet (Losartan-hydrochlorothiazide) ..... Take 1 tablet by mouth once a day Atenolol 25 Mg Tablet (Atenolol) ..... Take tablet by mouth once a day Chon Norton Cardiology Tiffanibhumi black [facility] Cardiology: H is updated medication list for this problem includes: Levothyroxine 25 Mcg Tablet (Levothyroxine) Tiffani Abdalla [facility] Cardiology:recent eep study showed mild SHELBY. He has had weight gain, HTN, and continued fatigue. Would benefit from titration study for CPAp will arranged. Tiffani Abdalla [facility] Cardiology:BP 168/90 has been averaging 148/61 at home per RPM. He however feels he is gaining wait with lisinopril/hctz. Will transition to losartan/hctz and monitor. Will return in 3 mos or sooner if needed. T he following medications were removed from the medication list: Lisinopril-hydrochlorothiazide 20-12.5 Mg Tablet (Lisinopril-hydrochlorothiazide) ..... Take 1 tablet by mouth once a day His updated medication list for this problem includes: Losartan-hydrochlorothiazide 50-12.5 Mg Tablet (Losartan-hydrochlorothiazide) ..... Take 1 tablet by mouth once a day Atenolol 25 Mg Tablet (Atenolol) ..... Take tablet by mouth once a day Tiffani Abdalla [employer] Cardiology:Has been feeling fatigued since starting medication. Difficulty sleeping through the night, gets up frequently. Increased stress at home for the past month. WIll arrange for home sleep study and order labwork. Alejandro Castillo MD Cardiology: H is updated medication list for this problem includes: Levothyroxine 25 Mcg Tablet (Levothyroxine) Alejandro Castillo MD Cardiology:Overall d oing well, BP has improved since starting lisinopril-HCTZ daily. Monitors BP at home and says it's around 140/80. Has been feeling fatigued since starting medication. BP today: 125/77 P rior BP: 170/97 (01/31/2022) His updated medication list for this problem includes: Lisinopril-hydrochlorothiazide 20-12.5 Mg Tablet (Lisinopril-hydrochlorothiazide) ..... Take 1 tablet by mouth once a day Atenolol 25 Mg Tablet (Atenolol) ..... Take tablet by mouth once a day Alejandro Castillo MD Cardiology:Has been feeling fatigued since starting medication. Difficulty sleeping through the night, gets up frequently. Increased stress at home for the past month. Saul rrange for home sleep study and order labwork. Alejandro Castillo MD Cardiology:Overall d oing well. BP still elevated. Will change lisinopril to lisinopril-HCTZ 20mg-12.5 mg daily. B P today: 170/97 P rior BP: 157/89 (07/31/2021) The following medications were removed from the medication list: Lisinopril 10 Mg Tablet (Lisinopril) ..... Take tablet by mouth once a day His updated medication list for this problem includes: Lisinopril-hydrochlorothiazide 20-12.5 Mg Tablet (Lisinopril-hydrochlorothiazide) ..... Take 1 tablet by mouth once a day Atenolol 25 Mg Tablet (Atenolol) ..... Take tablet by mouth once a day Alejandro Castillo MD Cardiology: H is updated medication list for this problem includes: Levothyroxine 25 Mcg Tablet (Levothyroxine) Alejandro Castillo MD Cardiology: H is updated medication list for this problem includes: Levothyroxine 25 Mcg Tablet (Levothyroxine) Alejandro Castillo MD Cardiology: T he pt could not tolerate amlodipine b/c it caused nocturia and incontinence at night. ARterial duplex of the upper and lower extremities were normal. Echo was normal. He does not want to try Procardia at this time. He will try gloves when it is cold outside. Alejandro Castillo MD Cardiology:. Pt jorge a es SOB and chest pain. N o palpitations. No hx of PAD. Will try amlodipine 10 mg daily. Will shcedule echo, arterial duplexes of the upper and lower extremities. BP today: 164/88 His updated medication list for this problem includes: Amlodipine 10 Mg Tablet (Amlodipine) ..... Take 1 tablet by mouth once a day Lisinopril 10 Mg Tablet (Lisinopril) ..... Take tablet by mouth once a day Atenolol 25 Mg Tablet (Atenolol) ..... Take tablet by mouth once a day Anisa Farah Cardiology: H is updated medication list for this problem includes: Levothyroxine 25 Mcg Tablet (Levothyroxine) ..... Take 1 tablet by mouth every day Anisa Farah Cardiology:The pt re ports pain and white discoloration of the fingers after exposure to cold, similar pain in the toes. Will shcedule echo, arterial duplexes of the upper and lower extremities. Anisa Farah Date Name Monitor - Telemetry (Mobile Cardiac) Complete Echo Sleep Study Titratio n HEMOGLOBIN A1c COMPREHENSIVE METABO LIC PANEL, W/EGFR LIPID PANEL TSH, free T4, total T3 Sleep Study Home RPM (remote patient monitoring) RPM (remote patient monitoring) Cold Agglutinin Tite r, Quant RPM (remote patient monitoring) Arterial Duplex Bi-L ower EX Arterial Duplex Uppe r Extremity Bilateral Complete Echo HISTORY OF PROCEDURES Procedure Date Procedure Name Provider Procedure Notes S tatus Complex e/m visit add on Alejandro Castillo MD completed EKG Alejandro Castillo MD completed Complex e/m visit add on Alejandro Castillo MD completed EKG Alejandro Castillo MD completed EKG Alejandro Castillo MD completed
--- OUTSIDE RECORDS SUMMARY | 2024-07-18 20:07 | XMS_ITS | Clinical Summary ---
Author Organization [address] Address [address] [place] [id number] Care Team Providers Care Photo Technologist Name Role Phone Del Orozco MD Primary [...] (08/06/2019): Added automatically from request for surgery [id number] Benign prostatic hyperplasia with lower urinary tract symptoms 08/06/2019 Overview (08/06/2019): Added automatically from request for surgery [id number] Accessory navicular bone of foot 04/30/2019 Contusion [...] Next Due Influenza, Trivalent, IM (MDV) 01/20/2015 Surgical History Surgery Date Site/Laterality Comments CARPAL TUNNEL RELEASE 04/15/2017 - 04/14/2018 Medical History Medical History Date Comments Hypertension Hypertension Disorder of thyroid Thyroid dise ase Depression Depression Hx Other Medical depression; Com ments: medication change; Outcome: improved Hx Other Medical anxiety Peptic ulceration Urinary incontinence Erectile dysfunction Anxiety Family History Medical History Relation Name Comments Bladder Cancer Father Cancer, bladd er; Bone cancer Father Cancer -bone; C ause of : Cancer -bone Hearing loss Father Breast cancer Mother Cancer, breast ; Other Mother Alive and well; Coronary artery disease Other 1 Fami ly history of Coronary artery disease; Hypertension Other 2 Family history of Hypertension; Relation Name Status Comments Father (Age 74) Mother Alive Other 1 Other 2 Social History Tobacco Use Types Packs/Day Years Used Date Smoking Tobacco: Never Smokeless Tobacco: Never Alcohol Use Standard Drinks/Week Comments No 0 (1 standard drink = 0.6 oz pur e alcohol) Sex and Gender Information Value Date Recorded Sex Assigned at Not on file Legal Sex Male 12:03 PM 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 ACCOUNT REPRESENTATIVE Gender Identity Male 09/14/2019 9:01 AM CDT Sexual Orientation Straight 09/14/2019 9: 01 AM CDT Obstetrics History Last Filed Vital Signs Vital Sign Reading Time Taken Comments Blood Pressure 152/85 03/03/2019 12:56 PM MAJOR ACCOUNT REPRESENTATIVE Pulse 68 03/03/2019 12:56 PM MAJOR ACCOUNT REPRESENTATIVE Temperature 37 C (98.6 F) 09/14/2019 10:20 AM CDT Respiratory Rate - - Oxygen Saturation 98% 10/30/2016 11:28 AM CDT Inhaled Oxygen Concentration - - Weight 89.8 kg (198 lb) 03/17/2021 9:57 AM MAJOR ACCOUNT REPRESENTATIVE Height 177.8 cm (5' 10 ) 03/17/2021 9:57 AM MAJOR ACCOUNT REPRESENTATIVE Body Mass Index 28.41 03/17/2021 9:57 AM MAJOR ACCOUNT REPRESENTATIVE Plan of Treatment Health Maintenance Due Date Last Done Comments Colon Cancer Screening-Colonoscopy 1965 Hepatitis B Screening 1983 Regular Well Visit/Exam 18-64 1983 Zoster Vaccine (1 of 2) 2015 DTaP/Tdap/Td Vaccine (1 - Tdap) 06/14/2017 06/13/2017 Depression Screening 10/30/2017 10/30/2016 Prostate Cancer Screening-PSA 03/29/2022 03/29/2020, 10/24/2016 Influenza Vaccine (#1) 2023 3, 03/07/2022, 03/26/2021, Additional history exists Hepatitis C Screening Completed 10/24/2016 Pneumococcal vaccine <65 Aged Out No longer eligible based on patient's age to complete this topic Procedures Procedure Name Priority Date/Time Associated Diagnosis Comments PSA SCREEN Routine 03/29/2020 9:40 AM MAJOR ACCOUNT REPRESENTATIVE Hypertrophy of prostate with urinary obstruction HEPATITIS PANEL, ACUTE Routine 10/24/2016 9:04 AM CDT from Last 3 Months or Most Recently Relevant to Health Maintenance Results * PSA screen (03/29/2020 9:40 AM MAJOR ACCOUNT REPRESENTATIVE) PSA 1.4 0.0 - 4.0 ng/mL [facility] - 01 Comment: Lizet ECLIA methodology. According to the [place] [employer], Serum PSA should decrease and [...] disease. Blood specimen (specimen) 03/29/2020 9:40 AM MAJOR ACCOUNT REPRESENTATIVE 03/29/2020 Narrative [facility] - 03/30/2020 8:14 AM MAJOR ACCOUNT REPRESENTATIVE Performed at: - [facility] [id number] Transit Worker: Pito Posadas PhD, Phone: [phone] us Long Lema MD LAB BLOOD ORDERABLE S Final Result [facility] - 01 * Hepatitis panel, acute (10/24/2016 9:04 AM [...] with a HCV Nucleic Acid Amplification test ([id number]). Blood specimen (specimen) 10/24/2016 9:04 AM CDT 10/24/2016 Narrative [facility] - 10/25/2016 4:11 AM CDT Performed at: - [facility] [address] [id number] Transit Worker: Pito Posadas PhD, Phone: [phone] Darron De La Torre LAB MICROBIOLOGY - GENERAL ORDER EVARISTO Final Result [facility] - 01 from Last 3 Months or Most Recently Relevant to Health Maintenance Insurance [employer] SENIOR SUPPLEMENT MEDICARE A[employer] SENIOR SUPPLEMENT MEDICARE MEDICARE [employer] SENIOR SUPPLEMENT Care Teams Photo Technologist Relationship Specialty [place] [address] [place] [address] PCP - General Internal Medicine 02/27/19
--- OUTSIDE RECORDS SUMMARY | 2024-07-18 20:07 | XMS_ITS | Encounter Summary ---
Author Organization [facility] Address [address] [place] [address] Care Team Providers Care Mobile Application Architect Name Role Phone Marleny Orozco MD Primary Care Provider Encounter Details Date Type Department Care Team (Late st Contact Info) Description 11/27/2006 Outpatient [facility] [address] [place] [address] 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
--- OUTSIDE RECORDS SUMMARY | 2024-07-18 20:07 | XMS_ITS | Data Portability ---
Author Organization [place] [facility] [employer], Main Office Address [address] [place] [address] Care Team Providers Care Continuous Dryout Operator Name Role Phone MARLENY OROZCO Primary Care Provider [phone] MARLENY OROZCO Referring Provider [phone] GEOVANNA FIERRO Physical Therapy Technician GEOVANNA LEWIS Urologist ANAI CASTILLO Thermostat Maker MONIKA FUENTES Collar Tacker Assessment Encounter Date Assessment Date Assessment LastModified by Organization Details LastModified Time 08/07/2023 08/07/2023 02/27/2022: TSH/FT4/CBC: WNL CMP: TP 5.8L Lipids HDL 39L 03/06/2023: TP 5.8 A1C 5.5 08/02/2023: PSA 1.6 UPEP: No Mspike Stable Not available 08/07/2023 18:16:44 11/06/2023 11/06/2023 02/27/2022: TSH/FT4/CBC: WNL CMP: TP 5.8L Lipids HDL 39L 03/06/2023: TP 5.8 A1C 5.5 08/02/2023: PSA 1.6 UPEP: No Mspike Stable Not available 11/06/2023 14:32:18 03/10/2024 03/10/2024 02/27/2022: TSH/FT4/CBC: WNL CMP: TP 5.8L Lipids HDL 39L 03/06/2023: TP 5.8 A1C 5.5 08/02/2023: PSA 1.6 UPEP: No Mspike Stable 03/03/2024: K 5.4H A1C 5.5 Not available 03/10/2024 11:38:42 07/01/2024 07/01/2024 02/27/2022: TSH/FT4/CBC: WNL CMP: TP 5.8L Lipids HDL 39L 03/06/2023: TP 5.8 A1C 5.5 08/02/2023: PSA 1.6 UPEP: No Mspike Stable 03/03/2024: K 5.4H A1C 5.5 Not available 07/01/2024 11:28:27 Plan of Treatment Reminders Order Date Submit Date Provider Last Modified By Organization Details Last Modified Time Details Appointments Follow Up 15 2024 10:45A Rj tan MD Not available Not available Not available Lab HbA1c (hemoglob in A1c), blood 2024 025 SIM [facility], [address] [facility], [facility], [place], [address], 07/02/2024 09:14:20 microalbu min, urine 2024 025 [facility], [address] [facility], [facility], [place], [address], 07/02/2024 09:14:21 CBC w/ auto diff 2024 025 [facility], [address] [facility], [facility], [place], [address], 07/02/2024 09:14:17 CMP, serum or plasma 2024 025 [facility], [address] [facility], [address], [place], [address], 07/02/2024 09:14:18 lipid panel, serum 2024 025 [facility], [address] [facility], [address], [place], [address], 07/02/2024 09:14:19 TSH + free T4, serum 2024 025 [facility], [address] [facility], [facility], [place], [address], 07/02/2024 09:14:15 HbA1c (hemoglob in A1c), blood 2023 024 [email or web address] [facility], [address] [facility], [facility], [place], [address], 03/30/2024 09:47:15 microalbu min, urine 2023 024 [email or web address] [facility], [address] [facility], [facility], [place], [address], 03/30/2024 09:47:15 potassium , serum or plasma 2023 024 [email or web address] [facility], [address] [place] [address], [facility], [place], [address], 03/30/2024 09:47:15 CBC w/ auto diff 2023 024 [email or web address] [facility], [address] [place] [address], [facility], [place], [address], 03/30/2024 09:47:15 CMP, serum or plasma 2023 024 [email or web address] [facility], [address] [place] [address], [facility], [place], [address], 03/30/2024 09:47:15 lipid panel, serum 2023 024 [email or web address] [facility], [address] [facility], [facility], [place], [address], 03/30/2024 09:47:15 TSH + free T4, serum 2023 024 [email or web address] [facility], [address] [facility], [facility], [place], [address], 03/30/2024 09:47:15 HbA1c (hemoglob in A1c), blood 2023 024 [facility], [address] [facility], [address], [place], [address], 05/04/2024 12:53:59 microalbu min, urine 2023 024 [facility], [facility], [address], [place], [address], 03/04/2024 07:23:14 CBC w/ auto diff 2023 024 [email or web address] [facility], [address] [place], [place] [address]Lorena Gaxiola [facility], [place], [address], 05/04/2024 12:53:58 CMP, serum or plasma 2023 024 [email or web address] [facility], [address] [place], [place] [address], [facility], [place], [address], 05/04/2024 12:53:58 lipid panel, serum 2023 024 [email or web address] [facility], [address] [place], [place] [address], [facility], [place], [address], 05/04/2024 12:53:59 TSH + free T4, serum 2023 024 [email or web address] [facility], [address] [place] [address], [facility], [place], [address], 05/04/2024 12:53:59 HbA1c (hemoglob in A1c), blood 2023 024 [email or web address] [facility], [facility], [address], [place], [address], 02/03/2024 12:17:30 microalbu min, urine 2023 024 [email or web address] [facility], [address] [place] [address], [facility] 2, [place], [address], 02/03/2024 12:17:30 CBC w/ auto diff 2023 024 [email or web address] [facility], [address] [place] [address] 2, [place], [address], 02/03/2024 12:17:29 CMP, serum or plasma 2023 024 [email or web address] [facility], [address] [place] [address] 2, [place], [address], 02/03/2024 12:17:29 lipid panel, serum 2023 024 [email or web address] [facility], [address] [place] [address] 2, [place], [address], 02/03/2024 12:17:30 TSH + free T4, serum 2023 024 [facility], [address] [place] [address] 2, [place], [address], 02/03/2024 12:17:30 Referral pulmonolo gist referral - Please call patient to schedule an appointme nt. Thank you. 2024 025 [facility] - Pulmonology, Pulmonary & Sleep Medicine, [address], [address], [place], [address], 07/01/2024 19:30:50 multicraft operator referral - Please call patient to schedule. 2023 024 [email or web address] Devyn Dolan MD, [address], [place], [address], 06/09/2024 08:11:41 pulmonolo gist referral - Please call patient to schedule. [address] - Pulmonology, Pulmonary & Sleep Medicine, [address], [address], [place], [address], 06/09/2024 08:11:41 multicraft operator referral 2023 024 Devyn Dolan MD, [address] [place], [address], 03/11/2024 16:16:24 pulmonolo gist referral 2023 024 Nilda Curtis DO, [address] [place] [address] , [address], [place], [address], 03/11/2024 16:16:38 multicraft operator referral 2023 024 [email or web address] Devyn Dolan MD, [address] [place], [address], 02/03/2024 12:17:51 pulmonolo gist referral 2023 024 [email or web address] Nilda Curtis DO, [address] [place] [address] , [address], [place], [address], 02/03/2024 12:17:53 Procedures cerumen removal (PROC) 2023 024 [email or web address] Not available 12/10/2023 08:24:38 Surgeries None recorded. Imaging None recorded. Medication Orders Unithroid 25 mcg tablet 2023 024 [email or web address] [id number], [address] [place], [place], [id number], 03/30/2024 09:47:15 Voquezna 20 mg tablet 2023 024 [facility] [address], [place], [address], 11/06/2023 14:46:24 Patient TargetsNo targets recorded. Patient Instructions Encounter Date Encounter Id Patient Instructions Last Modified By Organization Details Last Modified Time 08/07/2023 [id number] dementia rating scale-2* william 2 Not available 08/07/2023 18:15:37 alcohol misuse* william Blackwood Not available 08/07/2023 18:15:37 depression screening* william Blackwood Not available 08/07/2023 18:15:37 multi-dimensiona l health assessment questionnaire* william Blackwood Not available 08/07/2023 18:15:36 Personalized Hea lt Plan and Screening Recommendations Advance Directives - Do you have one? No You have indicated that you are capable of preparing your advance care directive Advance Directives - Do we have your advance directive on file in your health record? Primary Prevention/Interven tion (prevents or decreases the chance of common diseases from occurring) Smoking Risk: Non Smoker Alcohol Misuse Screening: Negative Weight: Appropriate Overwei ght continue your current weight loss efforts try to lose 5% of your body weight try to lose 10% of your body weight Physical activity: Need more exercise/physical activity minimum of 10-20 minutes of activity that causes mild breathlessness/day minimum of 20-30 minutes activity that causes mild breathlessness/day Nutrition: Good Average Refer to attached handout Heart-Healthy Diet: After Your Visit Fall Risk (screened today): Low Refer to attached handout Preventing Falls: After your Visit Vaccines Pneumococcal: Ordered Recommended today Influenza: Your next one in the fall of this year Chronic Disease Risks Stroke: Low Risk Intermediate Risk I have no recommendations Act ray diagnosis, Continue current treatment plan Heart Attack: Low risk Intermediate Risk Clogging of the Arteries: Low risk I have no recommendations Diabetes: Low Risk I have no recommendations Secondary Prevention/Interven tion (detects treatable diseases before they may cause symptoms, disability, or ) Prostate Cancer Screening: Colon Cancer Screening: Colonoscopy Date Screening Last Performed: 2017 Eye Disease Screening: Ordered Recommended today Dementia Risk: Low I have no recommendations Depression Screening: Negative Positive Active diagnosis, Continue current treatment plan [email or web address] Not available 08/07/2023 12:55:01 Reason for Referral Expeller Operator Referral for Aller gic rhinitis Referring Physician: Marleny Orozco, Internal Medicine, Encounter Date: 08/07/2023 Youth Services Librarian Referral for O bstructive sleep apnea syndrome Referring Physician: Marleny Orozco, Internal Medicine, Encounter Date: 08/07/2023 Expeller Operator Referral for Aller gic rhinitis Referring Physician: Marleny Orozco Internal Medicine, Encounter Date: 11/06/2023 Youth Services Librarian Referral for O bstructive sleep apnea syndrome Referring Physician: Marleny Orozco Internal Medicine, Encounter Date: 11/06/2023 Expeller Operator Referral for Aller gic rhinitis Please call patient to schedule. Referring Physician: Marleny Orozco Internal Medicine, Encounter Date: 03/10/2024 Youth Services Librarian Referral for O bstructive sleep apnea syndrome Please call patient to schedule. Referring Physician: Marleny Orozco Internal Medicine, Encounter Date: 03/10/2024 Youth Services Librarian Referral for O bstructive sleep apnea syndrome Please call patient to schedule an appointment. Thank you. Referring Physician: Marleny Orozco Internal Medicine, Encounter Date: 07/01/2024 Results Created Date Observation Date Name Description Value Unit Range Abnormal Flag Note LastModifiedBy Organization Detail LastModifiedTime 07/02/19 25 07/02/2024 TSH+F REE T4 TSH 1.040 uIU/m L 0.450- 4.500 normal Not Available [facility] ([facility]) [address] [place], [address], 07/02/2024 09:14:15 07/02/1907/02/2024 TSH+F REE T4 T4,free(dire ct) 1.48 NG/dL 0.82-1 .77 normal Not Available [facility] ([facility]) [address] [place], [address], 07/02/2024 09:14:15 07/02/19 25 07/02/2024 CBC WITH DIFFE RENTI AL/PL ATELE T WBC 5.6 x10e3 /uL 3.4-10 .8 normal Not Available [facility] ([facility]) [address] [place], [address], 07/02/2024 09:14:16 07/02/19 25 07/02/2024 CBC WITH DIFFE RENTI AL/PL ATELE T RBC 4.83 x10e6 /uL 4.14-5 .80 normal Not Available [facility] ([facility]) [address], [place], [address], 07/02/2024 09:14:16 07/02/19 25 07/02/2024 CBC WITH DIFFE RENTI AL/PL ATELE T hemoglobin 14.3 g/dL 13.0-1 7.7 normal Not Available [facility] ([facility]) [address] [place], [address], 07/02/2024 09:14:16 07/02/19 25 07/02/2024 CBC WITH DIFFE RENTI AL/PL ATELE T hematocrit 43.9 % 37.5-5 1.0 normal Not Available [facility] ([facility]) [address] [place], [address], 07/02/2024 09:14:16 07/02/19 25 07/02/2024 CBC WITH DIFFE RENTI AL/PL ATELE T MCV 91 fL 79-97 normal Not Available [facility] ([facility]) [address] [place], [address], 07/02/2024 09:14:16 07/02/19 25 07/02/2024 CBC WITH DIFFE RENTI AL/PL ATELE T MCH 29.6 pg 26.6-3 3.0 normal Not Available [facility] ([facility]) [address] [place], [address], 07/02/2024 09:14:16 07/02/19 25 07/02/2024 CBC WITH DIFFE RENTI AL/PL ATELE T MCHC 32.6 g/dL 31.5-3 5.7 normal Not Available [facility] ([facility]) [address] [place], [address], 07/02/2024 09:14:16 07/02/19 25 07/02/2024 CBC WITH DIFFE RENTI AL/PL ATELE T RDW 12.6 % 11.6-1 5.4 Not Available [facility] ([facility]) [address], [place], [address], 07/02/2024 09:14:16 07/02/19 25 07/02/2024 CBC WITH DIFFE RENTI AL/PL ATELE T platelets 248 x10e3 /uL 150-45 0 normal Not Available [facility] ([facility]) [address], [place], [address], 07/02/2024 09:14:16 07/02/19 25 07/02/2024 CBC WITH DIFFE RENTI AL/PL ATELE T neutrophils 68 % not estab. normal Not Available [facility] ([facility]) [address], [place], [address], 07/02/2024 09:14:16 07/02/19 25 07/02/2024 CBC WITH DIFFE RENTI AL/PL ATELE T lymphs 19 % not estab. normal Not Available [facility] ([facility]) [address], [place], [address], 07/02/2024 09:14:16 07/02/19 25 07/02/2024 CBC WITH DIFFE RENTI AL/PL ATELE T monocytes 8 % not estab. normal Not Available [facility] ([facility]) [address], [place], [address], 07/02/2024 09:14:16 07/02/19 25 07/02/2024 CBC WITH DIFFE RENTI AL/PL ATELE T eos 4 % not estab. normal Not Available [facility] ([facility]) [address] [place], [address], 07/02/2024 09:14:16 07/02/19 25 07/02/2024 CBC WITH DIFFE RENTI AL/PL ATELE T basos 1 % not estab. normal Not Available [facility] ([facility]) [address] [place], [address], 07/02/2024 09:14:16 07/02/19 25 07/02/2024 CBC WITH DIFFE RENTI AL/PL ATELE T immature cells SUPERVISOR BLOOMING MILL Not Available [facility] ([facility]) [address] [place], [address], 07/02/2024 09:14:16 07/02/19 25 07/02/2024 CBC WITH DIFFE RENTI AL/PL ATELE T neutrophils (absolute) 3.9 x10e3 /uL 1.4-7. 0 normal Not Available [facility] ([facility]) [address] [place], [address], 07/02/2024 09:14:16 07/02/19 25 07/02/2024 CBC WITH DIFFE RENTI AL/PL ATELE T lymphs (absolute) 1.1 x10e3 /uL 0.7-3. 1 normal Not Available [facility] ([facility]) [address] [place], [address], 07/02/2024 09:14:16 07/02/19 25 07/02/2024 CBC WITH DIFFE RENTI AL/PL ATELE T monocytes(ab solute) 0.4 x10e3 /uL 0.1-0. 9 normal Not Available [facility] ([facility]) [address] [place], [address], 07/02/2024 09:14:16 07/02/19 25 07/02/2024 CBC WITH DIFFE RENTI AL/PL ATELE T eos (absolute) 0.2 x10e3 /uL 0.0-0. 4 normal Not Available [facility] ([facility]) [address] [place], [address], 07/02/2024 09:14:16 07/02/19 25 07/02/2024 CBC WITH DIFFE RENTI AL/PL ATELE T baso (absolute) 0.1 x10e3 /uL 0.0-0. 2 normal Not Available [facility] ([facility]) [address], [place], [address], 07/02/2024 09:14:16 07/02/19 25 07/02/2024 CBC WITH DIFFE RENTI AL/PL ATELE T immature granulocytes 0 % not estab. Not Available [facility] ([facility]) [address], [place], [address], 07/02/2024 09:14:16 07/02/19 25 07/02/2024 CBC WITH DIFFE RENTI AL/PL ATELE T immature grans (abs) 0.0 x10e3 /uL 0.0-0. 1 Not Available [facility] ([facility]) [address], [place], [address], 07/02/2024 09:14:16 07/02/19 25 07/02/2024 CBC WITH DIFFE RENTI AL/PL ATELE T NRBC SUPERVISOR BLOOMING MILL Not Available [facility] ([facility]) [address], [place], [address], 07/02/2024 09:14:16 07/02/19 25 07/02/2024 CBC WITH DIFFE RENTI AL/PL ATELE T hematology comments: SUPERVISOR BLOOMING MILL Not Available [facility] ([facility]) [address], [place], [address], 07/02/2024 09:14:16 07/02/19 25 07/02/2024 COMP. METAB OLIC PANEL (14) glucose 93 mg/dL 70-99 normal Not Available [facility] ([facility]) [address] [place], [address], 07/02/2024 09:14:18 07/02/19 25 07/02/2024 COMP. METAB OLIC PANEL (14) BUN 12 mg/dL 6-24 normal Not Available [facility] ([facility]) [address] [place], [address], 07/02/2024 09:14:18 07/02/19 25 07/02/2024 COMP. METAB OLIC PANEL (14) creatinine 1.10 mg/dL 0.76-1 .27 normal Not Available [facility] ([facility]) [address] [place], [address], 07/02/2024 09:14:18 07/02/19 25 07/02/2024 COMP. METAB OLIC PANEL (14) eGFR 77 mL/mi n/1.7 3 >59 normal Not Available [facility] ([facility]) [address] [place], [address], 07/02/2024 09:14:18 07/02/19 25 07/02/2024 COMP. METAB OLIC PANEL (14) BUN/creatini ne ratio 11 9-20 normal Not Available [facility] ([facility]) [address] [place], [address], 07/02/2024 09:14:18 07/02/19 25 07/02/2024 COMP. METAB OLIC PANEL (14) sodium 134 mmol/ L 134-14 4 normal Not Available [facility] ([facility]) [address] [place], [address], 07/02/2024 09:14:18 07/02/19 25 07/02/2024 COMP. METAB OLIC PANEL (14) potassium 4.4 mmol/ L 3.5-5. 2 normal Not Available [facility] ([facility]) [address] [place], [address], 07/02/2024 09:14:18 07/02/19 25 07/02/2024 COMP. METAB OLIC PANEL (14) chloride 95 mmol/ L 96-106 below low normal Not Available [facility] ([facility]) [address], [place], [address], 07/02/2024 09:14:18 07/02/19 25 07/02/2024 COMP. METAB OLIC PANEL (14) carbon dioxide, total 27 mmol/ L 20-29 normal Not Available [facility] ([facility]) [address], [place], [address], 07/02/2024 09:14:18 07/02/19 25 07/02/2024 COMP. METAB OLIC PANEL (14) calcium 9.7 mg/dL 8.7-10 .2 normal Not Available [facility] ([facility]) [address] [place], [address], 07/02/2024 09:14:18 07/02/19 25 07/02/2024 COMP. METAB OLIC PANEL (14) protein, total 6.1 g/dL 6.0-8. 5 normal Not Available [facility] ([facility]) [address] [place], [address], 07/02/2024 09:14:18 07/02/19 25 07/02/2024 COMP. METAB OLIC PANEL (14) albumin 4.4 g/dL 3.8-4. 9 normal Not Available [facility] ([facility]) [address] [place], [address], 07/02/2024 09:14:18 07/02/19 25 07/02/2024 COMP. METAB OLIC PANEL (14) globulin, total 1.7 g/dL 1.5-4. 5 Not Available [facility] ([facility]) [address] [place], [address], 07/02/2024 09:14:18 07/02/19 25 07/02/2024 COMP. METAB OLIC PANEL (14) bilirubin, total 0.8 mg/dL 0.0-1. 2 normal Not Available [facility] ([facility]) [address], [place], [address], 07/02/2024 09:14:18 07/02/19 25 07/02/2024 COMP. METAB OLIC PANEL (14) alkaline phosphatase 76 IU/L 44-121 normal Not Available [facility] ([facility]) [address] [place], [address], 07/02/2024 09:14:18 07/02/19 25 07/02/2024 COMP. METAB OLIC PANEL (14) AST (SGOT) 20 IU/L 0-40 normal Not Available [facility] ([facility]) [address] [place], [address], 07/02/2024 09:14:18 07/02/19 25 07/02/2024 COMP. METAB OLIC PANEL (14) ALT (SGPT) 24 IU/L 0-44 normal Not Available [facility] ([facility]) [address] [place], [address], 07/02/2024 09:14:18 07/02/19 25 07/02/2024 LIPID PANEL cholesterol, total 122 mg/dL 100-19 9 normal Not Available [facility] ([facility]) [address] [place], [address], 07/02/2024 09:14:19 07/02/19 25 07/02/2024 LIPID PANEL triglyceride s 107 mg/dL 0-149 normal Not Available [facility] ([facility]) [address] [place], [address], 07/02/2024 09:14:19 07/02/19 25 07/02/2024 LIPID PANEL HDL cholesterol 36 mg/dL >39 below low normal Not Available [facility] ([facility]) [address] [place], [address], 07/02/2024 09:14:19 07/02/19 25 07/02/2024 LIPID PANEL VLDL cholesterol anai 20 mg/dL 5-40 Not Available [facility] ([facility]) [address] [place], [address], 07/02/2024 09:14:19 07/02/19 25 07/02/2024 LIPID PANEL LDL [facility] mg/dL 0-99 Not Available [facility] ([facility]) [address] [place], [address], 07/02/2024 09:14:19 07/02/19 25 07/02/2024 LIPID PANEL LDL calc comment: SUPERVISOR BLOOMING MILL Not Available [facility] ([facility]) [address] [place], [address], 07/02/2024 09:14:19 07/02/19 25 07/02/2024 HEMOG LOBIN A1C hemoglobin A1C 5.4 % 4.8-5. 6 normal Predi abete s: 5.7 - 6.4 Diabe zaria: >6.4 Glyce alejandra contr ol for adult s with diabe zaria: <7.0 Not Available [facility] ([facility]) [address] [place], [address], 07/02/2024 09:14:20 07/02/19 25 07/02/2024 ALBUM IN, RANDO M URINE albumin, urine TNP ug/mL Test not perfo rmed. No urine speci men recei mario. Not Available [facility] ([facility]) [address] [place], [address], 07/02/2024 09:14:21 07/02/19 25 07/01/2024 ALBERT E NOTE please note Commen t The date and/o r time of colle ction was not indic ated on the requi sitio n as requi red by state and anastasia al law. The date of recei pt of the speci men was used as the colle ction date if not suppl ied. Not Available [facility] ([facility]) [address], [place], [address], 07/02/2024 09:14:22 12/19/19 24 12/19/2023 imagi ng/di agnos tic resul t No observ ation record ed. [facility] [address] [place], [address], 12/19/2023 22:50:54 12/19/19 24 12/19/2023 imagi ng/di agnos tic resul t No observ ation record ed. [facility] [address] [place], [address], 12/19/2023 23:01:04 Result Notes None recorded. Problems Name Problem SNOMED Code Status Onset Date Resolution Date Notes Provider Name and Address Organization Details Recorded Time Paronychia of toe of left foot 2794439334893 9100 Active 2020 Not Available [facility] 3 06:08:10 Accessory navicular bone of foot 801013967 Active 2019 Not Available [facility] 3 06:08:10 Bipolar disorder 62442583 Active 2017 Not Available [facility] 3 06:08:10 Hyperkalem ia 06611053 Active 2021 Not Available [facility] 3 06:08:11 Acute sinusitis 23708542 Active 2021 Not Available [facility] 3 06:08:11 Contusion of toe(s) with damage to nail 569939346 Active 2019 Not Available [facility] 3 06:08:11 Curly toe 348549188 Active 2019 Not Available [facility] 3 06:08:11 Pain of ear 772781708 Active 2021 Not Available [facility] 3 06:08:11 Pain in right hip joint 2095237659389 02 Active 2021 Not Available [facility] 3 06:08:11 Pain of toe of right foot 0940807614722 01 Active 2021 Not Available [facility] 3 06:08:11 Hypertensi ve disorder 78685375 Active Not Available [facility] 3 06:08:11 Cough 30953070 Active 2021 Not Available [facility] 3 06:08:12 Upper respirator y infection 92522649 Active 2022 Not Available [facility] 3 06:08:12 Onycholysi s 24449281 Active 2021 Not Available [facility] 3 06:08:12 Essential hypertensi on 81228959 Active 2022 Marleny mojica MD [address], [address], [place], [address] , [facility], [facility] 3 18:27:29 Allergic rhinitis 82339726 Active 2022 Marleny mojica MD [address], [address], [place], [address] , [employer] [facility] 3 18:27:37 Hypothyroi dism 87641423 Active 2022 Marleny mojica MD [address], [address], [place], [address] , [facility], [facility] 3 18:27:43 Chronic depression 553133227 Active 2022 Marleny mojica MD [address], [address], [place], [address] , [employer] [facility] 3 18:27:49 Urinary incontinen ce 918341423 Active 2022 Marleny mojica MD [address], [place], [address] , [facility], [facility] 3 18:27:54 Neck pain 11425921 Active 2022 Marleny mojica MD [address], [address], [place], [address] , [facility], [facility] 3 18:28:04 Ingrowing toenail 157913124 Active 2022 Marleny mojica MD [address], [address], [place], [address] , [facility], [facility] 3 18:28:11 Tremor 77667658 Active 2022 Marleny mojica MD [address], [address], [place], [address] , [facility], [facility] 3 18:28:15 Hyperglyce luis 16675692 Active 2022 Marleny mojica MD [address], [address], [place], [address] , [facility], [facility] 3 11:06:51 Acute urinary tract infection 159674846 Active 2022 Angella vinson, [facility] 3 13:39:47 Candidiasi s of mouth 85682046 Active 2022 Angella vinson, [facility] 3 14:03:33 Obstructiv e sleep apnea syndrome 14811354 Active 2022 Marleny mojica MD [address], [address], [place], [address] , [facility], [facility] 3 08:49:07 Hypoprotei nemia 2802892 Active 2022 Marleny mojica MD [address], [address], [place], [address] , [facility], [facility] 3 11:20:18 Visual disturbanc e 58959581 Active 2022 Marleny mojica MD [address], [address], [place], [address] , [facility], [facility] 3 11:21:50 Gastroesop hageal reflux disease without esophagiti s 742826054 Active 2023 Marleny mojica MD [address], [address], [place], [address] , [facility], [facility] 4 12:23:57 Otitis media 04060290 Active 2023 Marleny mojica MD [address], [address], [place], [address] , [facility], [facility] 4 15:00:02 Chronic sinusitis 05127855 Active 2023 Geovanna Apodaca RN null, [facility] 4 16:14:47 Arthralgia of temporoman dibular joint 08618523 Active 2023 Geovanna Apodaca RN null, [facility] 4 16:14:54 Impacted cerumen in right ear 2123093022648 103 Active 2023 HALIAM Raymundo [address], [address], [place], [address] , [facility], [facility] 4 16:23:53 Temporoman dibular joint disorder 29350036 Active 2023 HALIMA Raymundo [address], [address], [place], [address] , [facility], [facility] 16:24:25 Problem Notes None recorded. Procedures Surgical History Date Name Laterality Status Provider Name and Address Organization Details Recorded Time 4 Cerumen Impaction completed HALIMA Raymundo [address], [address], [place], [address], [facility], [facility] 12/09/2023 16:23:41 4 Medicare Wellness CPT Code, subsequent completed Breezy Allen LPN [facility] 08/07/2023 12:40:05 4 Advanced Care Planning completed Breezy Allen LPN [facility] 08/07/2023 15:19:09 Carpal tunnel surgery completed Not Available [facility] 06/13/2022 05:58:45 Imaging Results Imaging Date Name Status LastModified by David stevens Details LastModified Time 12/19/2023 imaging/diagn ostic result active [facility] [address] [place], [address], 12/19/2023 22:50:54 12/19/2023 imaging/diagn ostic result active [facility] [address] [place], [address], 12/19/2023 23:01:04 Procedure Notes None recorded. Medical Equipment None Reported. Allergies Allergen ID Allergen Name Allergen Category Reaction Reaction Severity Criticality Documentation Date Start Date Code Code System Note Provider Name and Address Organization Details Recorded Time 62843 fluticaso ne Not available Not available Not available Not available 06/13/2022 21062 RxNorm Not Available [facility] 3 06:19:32 94055 adhesive environme nt,medica tion rash Not available Not available 06/13/2022 32998 UNK Not Available [facility] 3 06:19:32 83244 latex environme nt,medica tion Not available Not available Not available 06/13/2022 40637 91 RxNorm Not Available [facility] 3 06:19:33 57913 mupirocin medicatio n rash Not available Not available 08/07/2023 49649 RxNorm CR Zavala [facility] 4 11:27:20 06592 ciproflox acin medicatio n other Not available Not available 11/01/2023 2551 RxNorm Pt. state s this med. is reall y not an aller gy to him, but cause d oral thrus h, he is open to tryin g this med. again in the futur e. GELA Fam [facility] 4 15:58:10 21909 budesonid e medicatio n Not available Not available Not available 12/09/2023 RxNorm posit ray aller gy skin test GELA Fam null, [facility] [employer] [facility] 4 15:57:17 98823 desoximet asone medicatio n Not available Not available Not available 12/09/2023 3255 RxNorm posit ray aller gy skin test GELA Fam null, [facility] [employer] [facility] 4 15:57:31 Medications Name Sig Start Date Stop Date Status Note LastModified by Organization Details LastModified Time antacid/dip hen/lido 111 mouthwas SWISH AND SPIT 2-3 TIMES DAILY 08/06 completed Not Available Not Available Not Available celecoxib 200 mg capsule TAKE 1 CAPSULE BY MOUTH EVERY DAY 03/07 completed Not Available Not Available Not Available amoxicillin 500 mg capsule TAKE 1 CAPSULE BY MOUTH EVERY 8 HOURS FOR 7 DAYS 09/12 completed Not Available Not Available Not Available nystatin 100,000 unit/mL oral suspension APPLY 5 ML TO EACH CHEEK AND UNDER TONGUE FOUR TIMES DAILY FOR 14 DAYS 03/13 completed Not Available Not Available Not Available cetirizine 10 mg tablet TAKE 1 TABLET BY MOUTH EVERY DAY NEEDED 03/07 completed Not Available Not Available Not Available lisinopril 20 mg-hydrochl orothiazide 12.5 mg tablet TAKE 1 TABLET BY MOUTH EVERY DAY 08/06 completed Not Available Not Available Not Available azithromyci n 250 mg tablet TAKE 2 TABLETS (500 MG) BY ORAL ROUTE ONCE DAILY FOR 1 DAY THEN 1 TABLET (250 MG) BY ORAL ROUTE ONCE DAILY FOR 4 DAYS 10/03 completed Not Available Not Available Not Available Lidocaine Viscous 2 % mucosal solution 08/06 completed Not Available Not Available Not Available metoprolol succinate ER 50 mg tablet,exte nded release 24 hr TK 1 T PO QD 05/01 completed Not Available Not Available Not Available hydrocodone 5 mg-acetamin ophen 325 mg tablet 05/14 completed Not Available Not Available Not Available fluconazole 200 mg tablet TAKE 1 TABLET BY MOUTH DAILY 03/13 completed Not Available Not Available Not Available meloxicam 15 mg tablet 09/27 completed Not Available Not Available Not Available prednisone 20 mg tablet TAKE 1 TABLET BY MOUTH EVERY 12 HOURS FOR 5 DAYS 03/07 completed Not Available Not Available Not Available clonazepam 0.5 mg tablet TAKE 1/2 TABLET BY MOUTH TWICE DAILY active Not Available Not Available No t Available atenolol 25 mg tablet TAKE 1 TABLET BY MOUTH EVERY DAY active Not Available Not Available No t Available ciprofloxac in 500 mg tablet TAKE 1 TABLET BY MOUTH EVERY 12 HOURS 03/13 completed Not Available Not Available Not Available sulfamethox azole 800 mg-trimetho prim 160 mg tablet TAKE 1 TABLET BY MOUTH EVERY 12 HOURS WITH MEALS FOR 7 DAYS 05/15 completed Not Available Not Available Not Available omeprazole 40 mg capsule,del ayed release TAKE 1 CAPSULE BY MOUTH DAILY 08/06 completed Not Available Not Available Not Available amoxicillin 500 mg tablet Take 1 tablet every 8 hours by oral route for 7 days. 09/27 completed Not Available Not Available Not Available meloxicam 7.5 mg tablet Take 1 tablet twice a day by oral route as needed for 15 days. 07/08 completed Not Available Not Available Not Available losartan 100 mg-hydrochl orothiazide 25 mg tablet TAKE 1 TABLET BY MOUTH EVERY DAY active Not Available Not Available No t Available ofloxacin 0.3 % ear drops Instill 10 drops every day by otic route for 7 days. active Not Available Not Available No t Available amoxicillin 875 mg tablet TAKE 1 TABLET BY MOUTH EVERY 12 HOURS FOR 10 DAYS 03/07 completed Not Available Not Available Not Available ziprasidone 20 mg capsule TK 1 C PO BID 05/01 completed Not Available Not Available Not Available famotidine 20 mg tablet TAKE 1 TABLET BY MOUTH TWICE DAILY 03/07 completed Not Available Not Available Not Available prednisolon e acetate 1 % eye drops,suspe nsion SHAKE LIQUID AND INSTILL 1 DROP IN RIGHT EYE FOUR TIMES DAILY 10/03 completed Not Available Not Available Not Available lorazepam 0.5 mg tablet TK 1 T PO BID FOR 5 DAYS PRN 05/01 completed Not Available Not Available Not Available tamsulosin 0.4 mg capsule TAKE 1 CAPSULE BY MOUTH ONCE DAILY active Not Available Not Available No t Available Keflex 250 mg capsule Take 1 capsule every 6 hours by oral route for 7 days. 02/12 completed Not Available Not Available Not Available amlodipine 10 mg tablet TAKE 1 TABLET BY MOUTH EVERY DAY 10/03 completed Not Available Not Available Not Available levothyroxi ne 50 mcg tablet TK 1 T PO QD active Not Available Not Available No t Available cephalexin 500 mg capsule 08/16 completed Not Available Not Available Not Available lisinopril 10 mg tablet TAKE 1 TABLET BY MOUTH EVERY DAY 03/07 completed Not Available Not Available Not Available gabapentin 300 mg capsule 09/27 completed Not Available Not Available Not Available chlordiazep oxide 10 mg capsule TAKE 1 CAPSULE BY MOUTH ONCE DAILY AT BEDTIME FOR 15 DAYS 08/16 completed Not Available Not Available Not Available mupirocin 2 % topical ointment ISMAEL AA BID 11/11 completed Not Available Not Available Not Available Unithroid 25 mcg tablet TAKE 1 TABLET BY MOUTH EVERY DAY active Not Available Not Available No t Available methylpredn isolone 4 mg tablets in a dose pack 09/27 completed Not Available Not Available Not Available albuterol sulfate HFA 90 mcg/actuati on aerosol inhaler INHALE 2 PUFFS BY MOUTH EVERY 4 HOURS NEEDED active Not Available Not Available No t Available Vitamin D2 1,250 mcg (50,000 unit) capsule Take 1 capsule every week by oral route. 09/22 completed Not Available Not Available Not Available losartan 50 mg-hydrochl orothiazide 12.5 mg tablet TAKE 1 TABLET BY MOUTH EVERY DAY 03/13 completed Not Available Not Available Not Available fluticasone propionate 50 mcg/actuati on nasal spray,suspe nsion SHAKE LIQUID AND USE 1 SPRAY IN EACH NOSTRIL EVERY DAY 09/12 completed Not Available Not Available Not Available atenolol 50 mg tablet TK 1/2 T PO BID 05/01 completed Not Available Not Available Not Available lamotrigine 100 mg tablet TAKE 1 TABLET BY MOUTH EVERY MORNING AND TAKE 2 TABLETS BY MOUTH AT BEDTIME active Not Available Not Available No t Available finasteride 5 mg tablet TAKE 1 TABLET BY MOUTH ONCE DAILY 04/20 completed Not Available Not Available Not Available loratadine 10 mg tablet TAKE 1 TABLET BY MOUTH EVERY DAY NEEDED active Not Available Not Available No t Available amoxicillin 875 mg-potassiu m clavulanate 125 mg tablet TAKE 1 TABLET BY MOUTH EVERY 12 HOURS X 7 DAYS 12/08 completed Not Available Not Available Not Available amoxicillin 500 mg-potassiu m clavulanate 125 mg tablet 08/16 completed Not Available Not Available Not Available neomycin-po lymyxin-hyd rocort 3.5 mg-10,000 unit/mL-1 % ear drops,susp INSTILL 4 DROPS INTO AFFECTED EAR(S) BY OTIC ROUTE 3 TIMES PER DAY active Not Available Not Available No t Available aripiprazol e 5 mg tablet qd 12/30 completed Not Available Not Available Not Available Ciprodex 0.3 %-0.1 % ear drops,suspe nsion SHAKE LIQUID AND INSTILL 4 DROPS TO AFFECTED EAR EVERY 12 HOURS FOR 7 DAYS 03/07 completed Not Available Not Available Not Available tetanus-dip htheria toxoids-Td 2 Lf unit-2 Lf unit/0.5 mL IM suspension 07/08 completed Not Available Not Available Not Available escitalopra m 5 mg tablet TK 1 T PO QD 02/03 completed Not Available Not Available Not Available nitrofurant oin monohydrate /macrocryst als 100 mg capsule 03/13 completed Not Available Not Available Not Available levothyroxi ne 25 mcg 1 tab daily 12/06 completed Not Available Not Available Not Available ibuprofen 1 tab at bedtime 11/15 completed Not Available Not Available Not Available Keflex 02/03 completed Not Available Not Available Not Available multivitami n 1 tablet daily 11/15 completed Not Available Not Available Not Available mometasone 0.1 % topical solution APPLY 2 DROPS TO THE AFFECTED AREA(S) TOPICALLY TWICE DAILY 12/06 completed Not Available Not Available Not Available quetiapine 50 mg tablet TK 1 T PO ATN FOR 14 DAYS 05/01 completed Not Available Not Available Not Available Symbicort 160 mcg-4.5 mcg/actuati on HFA aerosol inhaler INHALE 2 PUFFS BY MOUTH TWICE DAILY. RINSE MOUTH AFTER USE 11/05 completed Not Available Not Available Not Available melatonin 5 mg tablet Take 1 tablet every day by oral route at bedtime. active Not Available Not Available No t Available GaviLyte-G 236 gram-22.74 gram-6.74 gram-5.86 gram oral solution 05/15 completed Not Available Not Available Not Available ProChamber USE DIRECTED WITH INHALER active Not Available Not Available No t Available Fluarix Quad 2067-9433 (PF) 60 mcg (15 mcg x 4)/0.5 mL IM syringe ADM 0.5ML IM UTD 08/18 completed Not Available Not Available Not Available ID NOW COVID-19 Test Kit USE 1 KIT TODAY DIRECTED 05/15 completed Not Available Not Available Not Available Voquezna 20 mg tablet Take 1 tablet every day by oral route as needed for 90 days. 11/05 completed Not Available Not Available Not Available Vitals Date Recorded Body height Body mass index (BMI) Body weight Body temperature Heart rate Systolic blood pressure Diastolic blood pressure Provider Name and Address Organization Details Last Updated DateTime 4 175.26 cm 31 kg/m2 98710.4 g 97.6 [degF] 78 /min 130 mm[Hg] 70 mm[Hg] Rona Newman [employer] [facility] [employer] [facility] 11:31:27 Date Recorded Pain severity - 0-10 verbal numeric rating [Score] - Reported Provider Name and Address Organization Details Last Updated DateTime 08/07/2023 0 Breezy Allen LPN [employer] [facility] [employer] [facility] 08/07/2023 12:42:49 Date Recorded Body height Body mass index (BMI) Body weight Body temperature Heart rate Respiratory rate Oxygen saturation Oxygen saturation in Arterial blood by Pulse oximetry Pain severity - 0-10 verbal numeric rating [Score] - Reported Systolic blood pressure Diastolic blood pressure Provider Name and Address Organization Details Last Updated DateTime 4 175.26 cm 30.5 kg/m2 16108.8 2 g 98 [degF] 70 /min 18 /min 96 % 96 % 3 140 mm[Hg] 80 mm[Hg] Breezy Allen LPN [employer] [facility] [employer] 14:43:54 Date Recorded Body height Body mass index (BMI) Body weight Body temperature Provider Name and Address Organization Details Last Updated DateTime 12/09/2023 175.26 cm 30.6 kg/m2 52576.62 g 98.4 [degF] Meghan Pruett [facility] [employer] [facility] [employer] [facility] 12/09/2023 15:56:51 Date Recorded Body height Body mass index (BMI) Body weight Body temperature Heart rate Systolic blood pressure Diastolic blood pressure Provider Name and Address Organization Details Last Updated DateTime 4 175.26 cm 31.3 kg/m2 66130.5 8 g 97 [degF] 72 /min 130 mm[Hg] 70 mm[Hg] CR Zavala [facility] [employer] [facility] 4 11:23:50 Date Recorded Body height Body mass index (BMI) Body weight Body temperature Heart rate Systolic blood pressure Diastolic blood pressure Provider Name and Address Organization Details Last Updated DateTime 5 175.26 cm 31.7 kg/m2 55226.3 6 g 98.9 [degF] 72 /min 122 mm[Hg] 68 mm[Hg] Rona Newman Karishma [facility] [employer] [facility] 5 11:06:57 Social History Question Answer Notes LastModified by Organizat ion Details LastModified Time Tobacco Smoking Status Never Smoker Not Available [facility] 06/13/2022 05:56:56 Do You Have An Advance Directive? No [id number] Information not available 06/13/2022 What Is Your Level Of Alcohol Consumption? None MIGRATION.00126 [id number] Information not available 06/13/2022 What Is Your Level Of Caffeine Consumption? Moderate MIGRATION.02981 [id number] Information not available 06/13/2022 In The 14 Days Before Symptom Onset, Have You Had Close Contact With A Laboratory-confi rmed COVID-19 While That Case Was Ill? No MIGRATION.[id number] [id number] Information not available 06/13/2022 In The 14 Days Before Symptom Onset, Have You Had Close Contact With A Person Who Is Under Investigation For COVID-19 While That Person Was Ill? No MIGRATION.82524 [id number] Information not available 06/13/2022 What Type Of Diet Are You Following? REGULAR MIGRATION.24908 [id number] Information not available 06/13/2022 What Is The Highest Grade Or Level Of School You Have Completed Or The Highest Degree You Have Received? [id number] MIGRATION.06766 32619 Information not available 06/13/2022 Have There Been Any Changes To Your Family Or Social Situation? No MIGRATION.15182 13760 Information not available 06/13/2022 What Is The Fluoride Status Of Your Home? Unknown MIGRATION.41653 87814 Information not available 06/13/2022 Are There Any Guns Present In Your Home? Yes MIGRATION.31614 96774 Information not available 06/13/2022 Do You Use Insect Repellent Routinely? No MIGRATION.24121 92695 Information not available 06/13/2022 Where Do You Live? [facility] MIGRATION.82041 22022 Information not available 06/13/2022 Presence Of Domestic Violence No [email or web address] Information not available 08/07/2023 Are You Blind Or Do Yo Have Difficulty Seeing? No [email or web address] Information not available 08/07/2023 Are You Deaf Or Do You Have Serious Difficulty Hearing? No [email or web address] Information not available 08/07/2023 General Stress Level? Moderate [email or web address] Information not available 08/07/2023 Live Alone Of With Others? With Others Lives With Mother Information not available 08/07/2023 Do You Have A Medical Power Of Gum Cook? No MIGRATION.10773 48777 Information not available 06/13/2022 What Was The Date Of Your Most Recent Tobacco Screening? 07/01/2024 [email or web address] Information not available 07/01/2024 Do You Have Any Pets? No [email or web address] Information not available 08/07/2023 What Is Your Relationship Status? Single MIGRATION.96473 55259 Information not available 06/13/2022 Do You Use Your Seat Belt Or Car Seat Routinely? Yes MIGRATION.01762 80775 Information not available 06/13/2022 Do You Have Smoke And Carbon Monoxide Detectors In Your Home? Yes MIGRATION.13161 82098 Information not available 06/13/2022 Are You Passively Exposed To Smoke? No MIGRATION.10614 89844 Information not available 06/13/2022 Are There Any Smokers In Your House? No MIGRATION.87092 75062 Information not available 06/13/2022 What Types Of Sporting Activities Do You Participate In? None MIGRATION.82966 57229 Information not available 06/13/2022 Do You Feel Stressed (tense, Restless, Nervous, Or Anxious, Or Unable To Sleep At Night)? [id number] MIGRATION.60518 32615 Information not available 06/13/2022 Do You Use Any Illicit Or Recreational Drugs? No MIGRATION.79738 80477 Information not available 06/13/2022 Do You Use Sunscreen Routinely? No [email or web address] Information not available 08/07/2023 Have You Recently Traveled Abroad? No MIGRATION.37472 76038 Information not available 06/13/2022 Do You Have Any Dietary Restrictions? No MIGRATION.68431 35997 Information not available 06/13/2022 Do You Or Have You Ever Used Any Other Forms Of Tobacco Or Nicotine? No MIGRATION.51881 27020 Information not available 06/13/2022 Sex: Male Functional Status Question Answer Note LastModified by Organizat ion Details LastModified Time What is your exercise level? Moderate [id number] Information not available 06/13/2022 Mental Status None recorded. Family History Relationship Description Onset Age of this Age Resolved Age Notes LastModified by Organization Details LastModified Time Father Hypertensive disorder [id number] Not available 06/13/2022 05:58:50 Father Carcinoma of urinary bladder MIGRATION.030 [id number] Not available 06/13/2022 05:58:50 Father Cataract MIGRATION.686 [id number] Not available 06/13/2022 05:58:50 Mother Osteoporosis MIGRATION.0 30 [id number] Not available 06/13/2022 05:58:51 Mother Cataract MIGRATION.864 [id number] Not available 06/13/2022 05:58:51 Mother Carcinoma of breast MIGRATION.465 [id number] Not available 06/13/2022 05:58:51 Mother Degenerative disorder of macula MIGRATION.417 [id number] Not available 06/13/2022 05:58:51 Mother Malignant neoplasm of skin MIGRATION.154 [id number] Not available 06/13/2022 05:58:51 Paternal Grandmother Carcinoma of urinary bladder MIGRATION.095 [id number] Not available 06/13/2022 05:58:51 Paternal Grandfather Diabetes mellitus [email or web address] Not available 08/15 10:43:25 Mother Hearing loss [email or web address] Not avail able 12/09/2023 15:58:47 Mother Acoustic neuroma [email or web address] Not available 2023 15:59:02 Mother Heart valve replacement [email or web address] Not available 02/14 11:20:55 Notes:Lupus: sister, materna l aunt, maternal grandmother Medical History Condition Response NERVE DISEASE Y BLINDNESS N RHEUMATIC FEVER N KIDNEY STONES N BLADDER PROBLEMS N MRSA N CARPAL TUNNEL SYNDROME N OTHER # 1 N POLIO N LUNG DISEASE/DISORDER N HISTORY OF DRUG ABUSE N RADIATION / CHEMOTHERAPY N COPD N Other # 2 N SPORTS INJURY N ANKLE PAIN N BLOOD DISEASES N EAR OR HEARING PROBLEMS N MUMPS N SCHIZOPHRENIA N SHINGLES N SHOULDER PAIN N DEPRESSION (INCLUDING POST ) Y BOWEL PROBLEMS N STROKE/TIA N KNEE PAIN N ULCERS Y BENIGN PROSTATIC HYPERPLASIA N MEASLES N HYPOTENSION N MYOCARDIAL INFARCTION N OBESITY N GERD/NAUSEA N ANEURYSM N URINARY/BLADDER/KIDNEY PROBLEMS Y CORONARY ARTERY DISEASE (CAD) N ADDICTION CONCERNS N ENDOMETRIOSIS N Impotence N USE OF BLOOD THINNERS N SKIN PROBLEMS N EMPHYSEMA N GASTROINTESTINAL DISORDER N PERIPHERAL VASCULAR DISEASE N MUSCLE,JOINT OR BONE PROBLEMS N DVT N STOMACH ULCERS N GASTROINTESTINAL BLEEDING N BLOOD CLOTS N ASTHMA N CATARACTS N USE OF NSAIDS N CONCUSSION OR SPINAL TRAUMA N ERECTILE DYSFUNCTION N VARICOSITIES N GI PROBLEMS N Low Testosterone N NEUROPATHY N INFERTILITY N AIDS/HIV N FRACTURES N CHEMOTHERAPY / RADIATION N LIVER DISEASE N MALE HYPOGONADISM N ELBOW PAIN N HYPERTENSION Y Deficiency N TOURETTE'S N ANXIETY DISORDER Y Metal allergy N BLOOD TRANSFUSION N ANEMIA/BLOOD DISORDER N CHRONIC EAR INFECTIONS N BIPOLAR DISORDER N BRONCHITIS N OSTEOARTHRITIS N TUBERCULOSIS N GLAUCOMA N FOOT PROBLEM N HEART VALVE DISORDERS N DIVERTICULITIS N [place] N SLEEP APNEA N SOFT TISSUE INJURY N ALLERGIES/HAYFEVER N INFECTIOUS DISEASE N PROSTATE Y HEART ARRHYTHMIA N INSOMNIA N RHEUMATOID ARTHRITIS N HIGH CHOLESTEROL / HYPERLIPIDEMIA N EYE PROBLEMS N HYPERTHYROIDISM N EDEMA N CHRONIC PAIN SYNDROME N HYPOTHYROIDISM Y CAROTID BLOCKAGE N CONSTIPATION N BACK / NECK PROBLEMS Y ATHEROSCLEROSIS N BURSITIS N BREAST PROBLEMS N HERNIATED DISC N DIALYSIS N ECZEMA N FIBROMYALGIA N OSTEOPOROSIS N ARTHRITIS N PERIPHERAL NEUROPATHY N APPENDICITIS N DIABETES, TYPE N BAD TEETH N ENT Y HEARTBURN / REFLUX N AUTISM SPECTRUM DISORDER (ASD) N HEPATITIS / LIVER DISEASE N GOUT N SLEEP DISORDER N ALZHEIMER'S DISEASE N Brain Problems N HERPES N DEMENTIA N HEADACHES/MIGRAINES N SEIZURES/EPILEPSY N VASCULAR DISEASE N PACEMAKER N Blood Disorder N HIP PAIN N DIZZINESS Y HEAD TRAUMA OR INJURY N HEART DISEASE/HEART PROBLEMS N KIDNEY DISEASE N MULTIPLE SCLEROSIS N CARDIAC ARRHYTHMIA N CANCER: SPECIFY N ANESTHESIA COMPLICATIONS N ATRIAL FIBRILLATION N Gall Stones N PULMONARY EMBOLISM N AUTOIMMUNE DISEASE N Immunizations Vaccine Type Date Status Note Provider Nam e and Address Organization Details Recorded Time Influenza, split virus, quadrivalent, preservative 0 completed CR Z[place], [place] - [facility] [employer] [facility] 07/01/2024 11:02:40 Influenza, MDCK, quadrivalent, PF 10/04/202 3 completed Rona Newman RMA null, [facility] 07/01/2024 11:02:40 zoster recombinant 4 completed Rona Newman RMA null, [facility] 07/01/2024 11:02:40 COVID-19, mRNA, LNP-S, PF, 100 mcg/0.5mL dose or 50 mcg/0.25mL dose 1 completed Rona Newman RMA null, [facility] 07/01/2024 11:02:40 COVID-19, mRNA, LNP-S, PF, 100 mcg/0.5mL dose or 50 mcg/0.25mL dose 1 completed Rona Newman RMA null, [facility] 07/01/2024 11:02:40 COVID-19, mRNA, LNP-S, PF, aisha-sucrose, 30 mcg/0.3 mL 3 completed Rona Newman RMA null, [facility] 07/01/2024 11:02:40 COVID-19, mRNA, LNP-S, PF, aisha-sucrose, 30 mcg/0.3 mL 4 completed Rona Newman RMA null, [facility] 07/01/2024 11:02:40 Tdap 5 completed Rona Newman RMA null, [facility] 07/01/2024 11:02:40 Influenza, split virus, trivalent, PF 5 completed Rona Newman RMA null, [facility] 07/01/2024 11:02:40 Influenza, split virus, trivalent, PF 4 completed Rona Newman RMA null, [facility] 07/01/2024 11:02:40 Td (adult), 2 Lf tetanus toxoid, preservative free, adsorbed 8 completed Rona Newman RMA null, [facility] 07/01/2024 11:02:40 Influenza, split virus, quadrivalent, PF 8 completed Rona Newman RMA null, [facility] 07/01/2024 11:02:40 Influenza, split virus, quadrivalent, PF 6 completed Rona Tanham RMA null, [facility] 07/01/2024 11:02:40 Influenza, split virus, quadrivalent, PF 1 completed Rona Newman RMA null, [facility] 07/01/2024 11:02:40 COVID-19, mRNA, LNP-S, PF, 100 mcg/0.5mL dose or 50 mcg/0.25mL dose 1 completed Rona Newman RMA null, [facility] 07/01/2024 11:02:40 COVID-19, mRNA, LNP-S, PF, 100 mcg/0.5mL dose or 50 mcg/0.25mL dose 1 completed Rona Newman RMA null, [facility] 07/01/2024 11:02:40 COVID-19, mRNA, LNP-S, PF, 100 mcg/0.5mL dose or 50 mcg/0.25mL dose 1 completed Rona Newman RMA null, [facility] 07/01/2024 11:02:40 Influenza, split virus, quadrivalent, preservative 1 completed Rona Newman RMA null, [facility] 07/01/2024 11:02:40 influenza, unspecified formulation 8 completed Rona Newman RMA null, [facility] 07/01/2024 11:02:40 tetanus toxoid, adsorbed 8 completed Not Available [facility] 06/13/2022 06:19:05 Influenza, split virus, quadrivalent, PF 2 completed Not Available [facility] 06/13/2022 06:19:05 Influenza, split virus, quadrivalent, PF 0 completed Not Available [facility] 06/13/2022 06:19:05 Past Encounters Encounter ID Performer Location Encounter Start Date Encounter Closed Date Diagnosis/Indication Diagnosis SNOMED-CT Code Diagnosis ICD10 Code Diagnosis Note [id number] [facility] [address], [place] [address] 10/10/2020 00:00:00 10/10/2020 15:56:08 [id number] [facility] [place] [address] [place] [address] 11/10/2020 00:00:00 11/11/2020 08:18:30 [id number] [facility] [place] [address] [place] [address] 12/22/2020 00:00:00 12/22/2020 13:33:10 [id number] [facility] [place] [address] [place] [address] 01/12/2021 00:00:00 01/12/2021 12:22:05 [id number] [facility] [place] [address] [place] [address] 05/01/2021 00:00:00 05/01/2021 11:39:16 [id number] [facility] [place] [address] [place] [address] 05/15/2021 00:00:00 05/15/2021 16:25:20 [id number] [facility] Internal [facility] [address] [facility], [address] [place] [address] 10/03/2021 00:00:00 11/10/2021 12:18:22 [id number] [facility] [place] [address] [place] [address] 11/06/2021 00:00:00 11/06/2021 15:29:52 [id number] [facility] [place] [address] [place] [address] 12/04/2021 00:00:00 12/04/2021 14:11:53 [id number] [facility] [address] [facility] [place] [address] 03/07/2022 00:00:00 03/07/2022 11:25:13 [id number] Marleny mojica MD [facility] [address] [place] [address] [place] [address] 09/12/2022 10:35:01 09/12/2022 11:12:35 Screening - NAD [id number] Z13.9 C-scope: 05/28/[address] Jovel, next in 10 years Get yearly flu shotUTD on tdap 06/13/17UT D on COVID 19 vaccine RTC in 6 monthGet labsER if worseHe did verbalize his understand ing of the above Essential hypertension 67227179 I10 On atenolol 25mg dailyOn lisinopril -HCTZ 20-12.5mg daily, started by Dr Castillo 01/31/2022 Get labs Allergic rhinitis 566739 04 J30.9 Cannot do the flonase as it makes him dizzyOn [facility] to [facility] multicraft operator Hypothyroidism 88812443 E03.9 On levothyrox ine 25mcgs dailyGet labs Chronic depression 79321 0009 F32.A On clonazepam On lamotrigin e 100mg 1 am and 2 in pmOn melatoninD oes well Sees Dr Sams Urinary incontinence 165 105799 R32 04/23/2019 : Dr Ortega is to get interstim deviceRete nsion of urine: 05/28/2019 : Dr Ortega Wash [facility], is to get Urolift procedure doneIs able to empty the bladder but may not be emptying it completely , he does use a cath but not in 2 months or soDoes well he did do the urodynamic , and is to see Dr Ortega, was told his sphincter muscle is the issue, also was told he has to TURP or urolift but no firm apt is done 09/14/2019 : Dr Platt, would like to get a MRI CLS spine prior to the urolift procedureS tarted on gabapentin and MDP and meloxicam for the neck pain OV 12/07/2019 :Is to get the urolift procedure with Dr Ortega, however Dr Ortega is to call and discuss the MRI with Dr Platt prior to any surgery 12/22/2019 : Dr Ortega: He is to discuss with Dr Platt if indeed the urolift procedure is contraindi cated, also does not want to do TURP d/t side effects of erectile dysfunctio n and retrograde ejaculatio nReferred to Dr Shen about laser prostatect geneva includin HoLap procedure and also other local urologist about Rezum procedure Did see Dr Lema 02/24/2020 , no surgery was done, was offered iTind procedure and HoLap (holium Laser Ablation of the Prostate) procedure Does wellDid not want to do any surgical procedures at this time Neck pain 83454665 M54.[address] Platt, is to see him again in 3 months 07/29/18 09/14/2019 : Dr Platt, would like to get a MRI CLS spine prior to the urolift procedureS tarted on gabapentin and MDP and meloxicam for the neck pain Does wellNo more apts Ingrowing toenail 993680 [address] Lino 05/01/2021 Tremor 85792029 R25.1 Intermitte nt, mild, none now Pain in ri ght hip joint 0467266064 7[address] Brewer on 11/06/2021 Screening for malignant neoplasm of prostate 984978578 Z12.5 Hyperglycemia 91497024 R 73.9 Concerned about his sugars, get A1C as he states that his cardiologi st also wants to get an A1C level [id number] Marleny mojica MD [facility] [place] [address] [facility], [address] [place] [address] 03/13/2023 10:52:47 03/13/2023 11:38:04 Screening - NAD 368775548 Z13.9 C-scope: 05/28/[address] Jovel, next in 10 years Get yearly flu shotUTD on tdap 06/13/17UT D on COVID 19 vaccineGet shingrix vaccine RTC in 4 monthsGet labsER if worseHe did verbalize his understand ing of the above Essential hypertension 87035640 I10 On atenolol 25mg dailyOn lisinopril -HCTZ 20-12.5mg daily, started by Dr Castillo 01/31/2022 , increased 02/01/2023 to 100-25mg daily Get labs Allergic rhinitis 353336 04 J30.9 Cannot do the flonase as it makes him dizzyOn [facility] multicraft operator Hypothyroidism 92486517 E03.9 On levothyrox ine 25mcgs dailyGet labs Chronic depression 73161 0009 F32.A On clonazepam On lamotrigin e 100mg 1 am and 2 in pmOn melatoninD oes well Sees Dr Sams Urinary incontinence 165 273111 R32 04/23/2019 : Dr Ortega is to get interstim deviceRete nsion of urine: 05/28/2019 : Dr Ortega Wash [facility], is to get Urolift procedure doneIs able to empty the bladder but may not be emptying it completely , he does use a cath but not in 2 months or soDoes well he did do the urodynamic , and is to see Dr Ortega, was told his sphincter muscle is the issue, also was told he has to TURP or urolift but no firm apt is done 09/14/2019 : Dr Platt, would like to get a MRI CLS spine prior to the urolift procedureS tarted on gabapentin and MDP and meloxicam for the neck pain OV 12/07/2019 :Is to get the urolift procedure with Dr Ortega, however Dr Ortega is to call and discuss the MRI with Dr Platt prior to any surgery 12/22/2019 : Dr Ortega: He is to discuss with Dr Platt if indeed the urolift procedure is contraindi cated, also does not want to do TURP d/t side effects of erectile dysfunctio n and retrograde ejaculatio nReferred to Dr Shen about laser prostatect geneva includin HoLap procedure and also other local urologist about Rezum procedure Did see Dr Lema 02/24/2020 , no surgery was done, was offered iTind procedure and HoLap (holium Laser Ablation of the Prostate) procedure Does Bernie not want to do any surgical procedures at this time Neck pain 72380845 M54.[address] Platt, is to see him again in 3 months 07/29/18 09/14/2019 : Dr Platt, would like to get a MRI CLS spine prior to the urolift procedureS tarted on gabapentin and MDP and meloxicam for the neck pain Does wellNo more apts Ingrowing toenail 936802 [address] Lino 05/01/2021 Tremor 39419861 R25.1 None now Pain in ri ght hip joint 0848091503 [address] Brewer on 11/06/2021 Screening for malignant neoplasm of prostate 139517730 Z12.5 Hyperglycemia 91083851 R 73.9 Concerned about his sugars, get A1C as he states that his cardiologi st also wants to get an A1C level Obstructiv e sleep apnea syndrome 21343920 G47.33 Sleep study 11/15/2022 : [facility], ordered by Dr Castillo, should be on CPAP, wants a referral to Dr Curtis who read the sleep study Hypoproteinemia 0735926 E88.09 Get UPEP and SPEP doneCan do more protein in diet Visual disturbance 40621 001 H53.9 Has noted a dark fixed spot in the R eye, needs to get a dilated pupil exam and referred to eye MD [id number] Marleny mojica MD [facility] [place] [address] [facility] [place] [address] 08/07/2023 11:08:50 08/07/2023 12:12:50 Screening - NAD 939799780 Z13.9 C-scope: 05/28/[address] Jovel, next in 10 years Get yearly flu shotUTD on tdap 06/13/17UT D on COVID 19 vaccineGet shingrix vaccine RTC in 4 monthsGet labsER if worseHe did verbalize his understand ing of the above Essential hypertension 94768216 I10 ECHO 05/08/2023 On atenolol 25mg dailyNot on lisinopril -HCTZ 20-12.5mg daily, started by Dr Castillo 01/31/2022 , increased 02/01/2023 to 100-25mg dailyOn losartan-H CTZ Get labs Allergic rhinitis 987494 04 J30.9 Cannot do the flonase as it makes him dizzyOn [facility] n[facility] to see multicraft operator Hypothyroidism 28617581 E03.9 On levothyrox ine 25mcgs dailyGet labs Chronic depression 80361 0009 F32.A On clonazepam On lamotrigin e 100mg 1 am and 2 in pmOn melatoninD oes well Sees Dr Sams Urinary incontinence 165 697511 R32 04/23/2019 : Dr Ortega is to get interstim deviceRete nsion of urine: 05/28/2019 : Dr Ortega Wash [facility], is to get Urolift procedure doneIs able to empty the bladder but may not be emptying it completely , he does use a cath but not in 2 months or soDoes well he did do the urodynamic , and is to see Dr Ortega, was told his sphincter muscle is the issue, also was told he has to TURP or urolift but no firm apt is done 09/14/2019 : Dr Platt, would like to get a MRI CLS spine prior to the urolift procedureS tarted on gabapentin and MDP and meloxicam for the neck pain OV 12/07/2019 :Is to get the urolift procedure with Dr Ortega, however Dr Ortega is to call and discuss the MRI with Dr Platt prior to any surgery 12/22/2019 : Dr Ortega: He is to discuss with Dr Platt if indeed the urolift procedure is contraindi cated, also does not want to do TURP d/t side effects of erectile dysfunctio n and retrograde ejaculatio nReferred to Dr Shen about laser prostatect geneva includin HoLap procedure and also other local urologist about Rezum procedure Did see Dr Lema 02/24/2020 , no surgery was done, was offered iTind procedure and HoLap (holium Laser Ablation of the Prostate) procedure Does wellDid not want to do any surgical procedures at this time Neck pain 69403955 M54.[address] Platt, is to see him again in 3 months 07/29/18 09/14/2019 : Dr Platt, would like to get a MRI CLS spine prior to the urolift procedureS tarted on gabapentin and MDP and meloxicam for the neck pain Does wellNo more apts Ingrowing toenail 335636 [address] Lino 05/01/2021 Tremor 33015400 R25.1 None now Pain in ri ght hip joint 0958020901 0[address]25[address] Brewer on 11/06/2021 Hyperglycemia 48762717 R 73.9 Concerned about his sugars, get A1C as he states that his cardiologi st also wants to get an A1C level Obstructiv e sleep apnea syndrome 00230888 G47.33 Sleep study 11/15/2022 : [facility], ordered by Dr Castillo, should be on CPAP, wants a referral to Dr Curtis who read the sleep study Hypoproteinemia 5333751 E88.09 Can do more protein in diet Visual disturbance 84269 001 H53.9 Has noted a dark fixed spot in the R eye, needs to get a dilated pupil exam and referred to eye MD Dr Fuentes 07/30/2023 Gastroesop hageal reflux disease without esophagitis 514036720 K21.9 On omperazole as needed, has noted that he has an allergy to the PPI, will change to voquezna, all side effects explained to him Adult [facility] th examination 253679299 Z00.00 Screening for disorder 078088373 Z13.9 [id number] Marleny mojica MD [facility] Internal Med [facility] [address] [place] [address] [place] [address] 11/06/2023 14:25:16 11/06/2023 15:00:51 Screening - NAD 627666764 Z13.9 C-scope: 05/28/[address] Jovel, next in 10 years Get yearly flu shotUTD on tdap 06/13/17UT D on COVID 19 vaccineGet shingrix vaccine RTC in 4 monthsGet labsER if worseHe did verbalize his understand ing of the above Essential hypertension 62477418 I10 ECHO 05/08/2023 On atenolol 25mg dailyNot on lisinopril -HCTZ 20-12.5mg daily, started by Dr Castillo 01/31/2022 , increased 02/01/2023 to 100-25mg dailyOn losartan-H CTZ Get labs Allergic rhinitis 615543 04 J30.9 Cannot do the flonase as it makes him dizzyOn [facility] nts to see multicraft operator Hypothyroidism 76810187 E03.9 On levothyrox ine 25mcgs dailyGet labs Chronic depression 56300 0009 F32.A On clonazepam On lamotrigin e 100mg 1 am and 2 in pmOn melatoninD oes well Sees Dr Sams Urinary incontinence 165 956623 R32 04/23/2019 : Dr Ortega is to get interstim deviceRete nsion of urine: 05/28/2019 : Dr Ortega Wash U, is to get Urolift procedure doneIs able to empty the bladder but may not be emptying it completely , he does use a cath but not in 2 months or soDoes well he did do the urodynamic , and is to see Dr Ortega, was told his sphincter muscle is the issue, also was told he has to TURP or urolift but no firm apt is done 09/14/2019 : Dr Platt, would like to get a MRI CLS spine prior to the urolift procedureS tarted on gabapentin and MDP and meloxicam for the neck pain OV 12/07/2019 :Is to get the urolift procedure with Dr Ortega, however Dr Ortega is to call and discuss the MRI with Dr Platt prior to any surgery 12/22/2019 : Dr Ortega: He is to discuss with Dr Platt if indeed the urolift procedure is contraindi cated, also does not want to do TURP d/t side effects of erectile dysfunctio n and retrograde ejaculatio nReferred to Dr Shen about laser prostatect egneva includin HoLap procedure and also other local urologist about Rezum procedure Did see Dr Lema 02/24/2020 , no surgery was done, was offered iTind procedure and HoLap (holium Laser Ablation of the Prostate) procedure Does wellDid not want to do any surgical procedures at this time Neck pain 06343136 M54.[address] Platt, is to see him again in 3 months 07/29/18 09/14/2019 : Dr Platt, would like to get a MRI CLS spine prior to the urolift procedureS tarted on gabapentin and MDP and meloxicam for the neck pain Does wellNo more apts Ingrowing toenail 236809 [address] Lino 05/01/2021 Tremor 21615784 R25.1 None now Pain in ri ght hip joint 5943029675 00107 M25.551 Did see Isaac BANG 12/04/2021 Hyperglycemia 12475558 R 73.9 Concerned about his sugars, get A1C as he states that his cardiologi st also wants to get an A1C level Obstructiv e sleep apnea syndrome 18637403 G47.33 Sleep study 11/15/2022 : [facility], ordered by Dr Castillo, should be on CPAP, wants a referral to Dr Curtis who read the sleep study Hypoproteinemia 3337451 E88.09 Can do more protein in diet Visual disturbance 96731 001 H53.9 Has noted a dark fixed spot in the R eye, needs to get a dilated pupil exam and referred to eye MD Dr Fuentes 07/30/2023 Gastroesop hageal reflux disease without esophagitis 813566962 K21.9 On omperazole as needed, has noted that he has an allergy to the PPI, will change to voquezna, all side effects explained to him Pain of ear 638055761 H9 2.09 Otitis media 08311499 H6 6.91 States that the augmentin has helpedNoti fy if the symptoms worsen, then will need MDP or see ENTER if worse [id number] HALIMA Raymundo [facility] [place] [address] [place] [address] 12/09/2023 15:37:14 12/09/2023 17:20:47 Impacted cerumen in right ear 5165085215 536782 H61.21 Chronic sinusitis 145679 00 J32.9 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 [id number] Marleny mojica MD [facility] [place] [address] [facility], [address] [place] [address] 03/10/2024 11:10:35 03/10/2024 12:05:51 Screening - NAD 116593652 Z13.9 C-scope: 05/28/[address] Jovel, next in 10 years Get yearly flu shotUTD on tdap 06/13/17UT D on COVID 19 vaccineGet shingrix vaccine RTC in 4 monthsGet labsER if worseHe did verbalize his understand ing of the above Essential hypertension 28958037 I10 ECHO 05/08/2023 On atenolol 25mg dailyNot on lisinopril -HCTZ 20-12.5mg daily, started by Dr Castillo 01/31/2022 , increased 02/01/2023 to 100-25mg dailyOn losartan-H CTZ Dr Castillo 11/04/2023 , next in 6 monthsGet labs Allergic rhinitis 703227 04 J30.9 Cannot do the flonase as it makes him dizzyOn claritinWa nts to see multicraft operator Hypothyroidism 16406303 E03.9 On levothyrox ine 25mcgs daily, renwed with unithroid 03/10/2024 Get labs Chronic depression 57655 0009 F32.A On clonazepam On lamotrigin e 100mg 1 am and 2 in pmOn melatoninD oes well Sees Dr Sams Urinary incontinence 165 809454 R32 04/23/2019 : Dr Ortega is to get interstim deviceRete nsion of urine: 05/28/2019 : Dr Ortega Wash U, is to get Urolift procedure doneIs able to empty the bladder but may not be emptying it completely , he does use a cath but not in 2 months or soDoes well he did do the urodynamic , and is to see Dr Ortega, was told his sphincter muscle is the issue, also was told he has to TURP or urolift but no firm apt is done 09/14/2019 : Dr Platt, would like to get a MRI CLS spine prior to the urolift procedureS tarted on gabapentin and MDP and meloxicam for the neck pain OV 12/07/2019 :Is to get the urolift procedure with Dr Ortega, however Dr Ortega is to call and discuss the MRI with Dr Platt prior to any surgery 12/22/2019 : Dr Ortega: He is to discuss with Dr Platt if indeed the urolift procedure is contraindi cated, also does not want to do TURP d/t side effects of erectile dysfunctio n and retrograde ejaculatio nReferred to Dr Shen about laser prostatect geneva includin HoLap procedure and also other local urologist about Rezum procedure Did see Dr Lema 02/24/2020 , no surgery was done, was offered iTind procedure and HoLap (holium Laser Ablation of the Prostate) procedure On tamsulosin 0.4mg daily Geovanna Lewis [employer] urology 01/08/2024 , today 03/10/2024 states that he is contemplat ing surgery Neck pain 60479280 M54.[address] Platt, is to see him again in 3 months 07/29/18 09/14/2019 : Dr Platt, would like to get a MRI CLS spine prior to the urolift procedureS tarted on gabapentin and MDP and meloxicam for the neck pain Does wellNo more apts Ingrowing toenail 955730 [address] Lino 05/01/2021 Tremor 37208953 R25.1 None now Pain in ri ght hip joint 4762643316 30809 M25.551 Did see Isaac BANG 12/04/2021 Hyperglycemia 00483012 R 73.9 Concerned about his sugars, get A1C as he states that his cardiologi st also wants to get an A1C level Obstructiv e sleep apnea syndrome 80739784 G47.33 Sleep study 11/15/2022 : [facility], ordered by Dr Castillo, should be on CPAP, wants a referral to Dr Curtis who read the sleep study Hypoproteinemia 8047389 E88.09 Can do more protein in diet Visual disturbance 71409 001 H53.9 Has noted a dark fixed spot in the R eye, needs to get a dilated pupil exam and referred to eye MD Dr Fuentes 07/30/2023 Gastroesop hageal reflux disease without esophagitis 752060505 K21.9 On omperazole as needed, has noted that he has an allergy to the PPI, will change to voquezna, all side effects explained to him Hyperkalemia 68325571 E8 7.5 Repeat the labs [id number] Marleny mojica MD [facility] Primary Care [place] [address] [facility] [address] [place] [address] 07/01/2024 10:46:57 07/01/2024 11:56:11 Screening - NAD 020048027 Z13.9 C-scope: 05/28/[address] Jovel, next in 10 years Get yearly flu shotUTD on tdap 06/13/17UT D on COVID 19 vaccineGet shingrix vaccine RTC in 4 monthsGet labsER if worseHe did verbalize his understand ing of the above Essential hypertension 55147268 I10 ECHO 05/08/2023 On atenolol 25mg dailyNot on lisinopril -HCTZ 20-12.5mg daily, started by Dr Castillo 01/31/2022 , increased 02/01/2023 to 100-25mg dailyOn losartan-H CTZ Dr Newell labs Allergic rhinitis 648746 04 J30.9 Cannot do the flonase as it makes him dizzyOn claritinWa nts to see multicraft operator was referred last OV Hypothyroidism 38386167 E03.9 On levothyrox ine 25mcgs daily, renewed with unithroid 03/10/2024 Get labs Chronic depression 70822 0009 F32.A On clonazepam On lamotrigin e 100mg 1 am and 2 in pmOn melatoninD oes well Sees Dr Sams Urinary incontinence 165 850824 R32 04/23/2019 : Dr Ortega is to get interstim deviceRete nsion of urine: 05/28/2019 : Dr Ortega [facility], is to get Urolift procedure doneIs able to empty the bladder but may not be emptying it completely , he does use a cath but not in 2 months or soDoes well he did do the urodynamic , and is to see Dr Ortega, was told his sphincter muscle is the issue, also was told he has to TURP or urolift but no firm apt is done 09/14/2019 : Dr Platt, would like to get a MRI CLS spine prior to the urolift procedureS tarted on gabapentin and MDP and meloxicam for the neck pain OV 12/07/2019 :Is to get the urolift procedure with Dr Ortega, however Dr Ortega is to call and discuss the MRI with Dr Platt prior to any surgery 12/22/2019 : Dr Ortega: He is to discuss with Dr Platt if indeed the urolift procedure is contraindi cated, also does not want to do TURP d/t side effects of erectile dysfunctio n and retrograde ejaculatio nReferred to Dr Shen about laser prostatect geneva includin HoLap procedure and also other local urologist about Rezum procedure Did see Dr Lema 02/24/2020 , no surgery was done, was offered iTind procedure and HoLap (holium Laser Ablation of the Prostate) procedure On tamsulosin 0.4mg daily Geovanna Lewis NP urology 01/08/2024 , today 03/10/2024 states that he is contemplat ing surgery On tamsulosin 0.4mg daily, seen by Geovanna Lewis NP urology, 02/19/2024 , f/u in 3months Neck pain [id number] M54.[address] Platt, is to see him again in 3 months 07/29/18 09/14/2019 : Dr Platt, would like to get a MRI CLS spine prior to the urolift procedureS tarted on gabapentin and MDP and meloxicam for the neck pain Does wellNo more apts Ingrowing toenail [id number] Lino 05/01/2021 Does well now Tremor [id number] R25.1 None now Pain in ri ght hip joint [id number] 49103 M25.551 Did see Isaac BANG 12/04/2021 Hyperglycemia [id number] R 73.9 Concerned about his sugars, get A1C as he states that his cardiologi st also wants to get an A1C level Obstructiv e sleep apnea syndrome [id number] G47.33 Sleep study 11/15/2022 : [facility], ordered by Dr Castillo, should be on CPAP, wants a referral to Dr Curtis who read the sleep study Hypoproteinemia [id number] E88.09 Can do more protein in diet Visual disturbance 52932 001 H53.9 Has noted a dark fixed spot in the R eye, needs to get a dilated pupil exam and referred to eye MD Dr Fuentes 07/30/2023 Gastroesop hageal reflux disease without esophagitis [id number] K21.9 Not on any omperazole as needed, has noted that he has an allergy to the PPINot on VoquenzaDo es well Health Concerns Section Related Observation LastModified by Organization Detai ls LastModified Time None Recorded Concern Status LastModified by Organization Details LastModified Time None Recorded Advance Directives Directive N: Payers Encounter Date Sequence Insurance Name Policy Number Policy Garber Covered Member ID Garber Member ID Guarantor Name 08/07/2023 1 [place] Morris [id number] Cleveland Morris 08/07/2023 2 [employer] (MEDICARE SUPPLEMENT) Cleveland Morris [id number] Cleveland Morris 11/06/2023 1 [place] Morris [id number] Cleveland Morris 11/06/2023 2 [employer] (MEDICARE SUPPLEMENT) Cleveland Morris [id number] Cleveland Morris 12/09/2023 1 [place] Morris [id number] Cleveland Morris 12/09/2023 2 [employer] (MEDICARE SUPPLEMENT) Cleveland Morris [id number] Cleveland Morris 03/10/2024 1 [place] Morris [id number] Cleveland Morris 03/10/2024 2 [employer] (MEDICARE SUPPLEMENT) Cleveland Morris [id number] Cleveland Morris 07/01/2024 1 [place] Morris [id number] 19 Cleveland Morris 07/01/2024 2 [employer] (MEDICARE SUPPLEMENT) Cleveland Morris [id number] Cleveland Morris Notes Date Note Type Note Provider Name and Address Organization Details Recorded Time 08/07/2023 text/html Here to jani Rasmussen PMD: Dr Delgadillo Hx:HTNHypothyroidi smDepressionReview ed social family and surgical historyHere to discuss the above and get labsHe also has some L shoulder pain, cannot lift the shoulder above 90 degrees no radiation, located in the top of the shoulderAlso has pain in the R hand, some 'cold feeling' and feels that he does have some N/THe is RHHe would also like to get an EKG now that he is 51 OV 05/15/17:Here as he would like to review the labs and also discuss the shoulder pain and the hand painHe would like a refill for atenolol and he states that he takes it only once a day OV 07/08/17:Here for his apt for the L shoulder, and the handsHe wants to get a second opinion for the CTS, he states that the L shoulder pain is now resolved with the PT OV 11/11/17:Here for his routine aptHe states that that he is getting a CTS surgery doneHe states that he has not done any new labsHe also notes some R hip pain, denies any numbness or tinglingNo acute or remote trauma notedNo aggravating or relieving factors, he does state that he has been on a treadmill every day since past 2-3 weeks and feels that this could cause his painHe would also like to discuss a depression in the R nail bed since 2-3 weeks, no pain, slight 'yellowing' noted, he states that about a year ago he had an injury to the R nail and thumb but the nail has healed up OV 12/30/17:Here s/p ER follow upHe states that he was seen in the ER for urinary retension OV 02/03/18:Here s/p cystoscope, was noted to have some vomiting and this is now resolvedHe also wants a referral to neurology for MSHas had another blockage, and had another scope and this was done 2 days, and now has a goodman, done by Dr Rushing at [facility], has to keep the goodman till next week OV 02/12/18:Here for his MWVHe is doing well, also sees his urologist now OV 05/14/18:Here for his routine aptHe states that he did see urologyHe feels well OV 08/18/18:Here for his routine aptHe feels wellHe feels that his ear is clogged and he has had 'wax' removed inthe past, no pain, no d/c or any blood OV 09/22/18:Here for his routine aptHe did do the labsHe is doing well at this timeHe did want his ears flushed, doing well otherwiseOV 01/19/19;Here for his routine aptHe feels wellDid do the labs not reported yet OV 04/20/2019:Here for his routine aptHe feels wellHe states that he did do the labsHe also has some R toe painHe did run a door over the R toeAble to ambulate on it OV 08/17/2019:tele visit and he is agreeable to doNo anup Kimbrough did Dr Ortega the urologistHe does see Dr Christy does have R ear poppingOV 09/22/2019:ACV:R ear ache, since about 4 days, did have a tele visit and was put on amoxicillin and ofloxacin ear drops, the R ear is a better but still has some muffled hearingNo fevers or chills, no N/V or diarrhea, no headaches, no URI sx, no dizzinessOV 12/07/2019:Here for hs routine aptHe feels wellHe does not want to use the cream given by the ENT as it 'betancourt'He has not done the labsHe would like to get his ears flushedHe is here for his MWV alsoOV 04/18/2020:Here for his routine aptHe feels wellHe did do the labsHe has seen Dr Lema the urologistHe would like to get the ears flushed today as he feels that they have flaky wax that comes outOV 10/10/2020:Here for his routine aptHe does wellHe did do the labs but no report yetWants to see podiatry for in grown toe nailsWants to get the ears flushedOV 05/15/2021:Here for his routine aptHe is doing well, has noted a slight tremor and also wants the ears flushedHe did see podiatryNo recent labs notedOV 10/03/2021:Here for his routine apt, he is c/o R hip pain, no injury, no N/T or weakness notedNo recent labs notedHere for his MWV alsoDoes c/o some allergy symptoms, mild cough, sneezing and nasal congestion, no fevers or SOB or wheezing, no chest painOV 03/07/2022:Here for his f/u apt, he is doing well at this time, he did do the labs on 02/27/2022 OV 09/12/2022:Here for his routine apt, he feels well, no recent labs noted OV 03/13/2023: Here for his f/u apt, he is doing very well, does need to see an eye MD as he has noted a 'spot' on his R eye, no diplopia, no eye pain, no change in vision, he also has an apt with Dr Curtis who is to manage his CPAP for his SHELBY OV 08/07/2023: Here for his f/u apt, he is doing well today, he did do the labs Marleny Orozco MD [address] [facility], [address], [place], [address], [facility] [place] [place] [employer] [facility] 08/07/2023 18:17:00 11/06/2023 text/html Here to jani Rasmussen PMD: Dr Delgadillo Hx:HTNHypothyroidi smDepressionReview ed social family and surgical historyHere to discuss the above and get labsHe also has some L shoulder pain, cannot lift the shoulder above 90 degrees no radiation, located in the top of the shoulderAlso has pain in the R hand, some 'cold feeling' and feels that he does have some N/THe is RHHe would also like to get an EKG now that he is 51 OV 05/15/17:Here as he would like to review the labs and also discuss the shoulder pain and the hand painHe would like a refill for atenolol and he states that he takes it only once a day OV 07/08/17:Here for his apt for the L shoulder, and the handsHe wants to get a second opinion for the CTS, he states that the L shoulder pain is now resolved with the PT OV 11/11/17:Here for his routine aptHe states that that he is getting a CTS surgery doneHe states that he has not done any new labsHe also notes some R hip pain, denies any numbness or tinglingNo acute or remote trauma notedNo aggravating or relieving factors, he does state that he has been on a treadmill every day since past 2-3 weeks and feels that this could cause his painHe would also like to discuss a depression in the R nail bed since 2-3 weeks, no pain, slight 'yellowing' noted, he states that about a year ago he had an injury to the R nail and thumb but the nail has healed up OV 12/30/17:Here s/p ER follow upHe states that he was seen in the ER for urinary retension OV 02/03/18:Here s/p cystoscope, was noted to have some vomiting and this is now resolvedHe also wants a referral to neurology for MSHas had another blockage, and had another scope and this was done 2 days, and now has a goodman, done by Dr Rushing at [facility], has to keep the goodman till next week OV 02/12/18:Here for his MWVHe is doing well, also sees his urologist now OV 05/14/18:Here for his routine aptHe states that he did see urologyHe feels well OV 08/18/18:Here for his routine aptHe feels wellHe feels that his ear is clogged and he has had 'wax' removed inthe past, no pain, no d/c or any blood OV 09/22/18:Here for his routine aptHe did do the labsHe is doing well at this timeHe did want his ears flushed, doing well otherwiseOV 01/19/19;Here for his routine aptHe feels wellDid do the labs not reported yet OV 04/20/2019:Here for his routine aptHe feels wellHe states that he did do the labsHe also has some R toe painHe did run a door over the R toeAble to ambulate on it OV 08/17/2019:tele visit and he is agreeable to doNo recent labsHe did Dr Ortega the urologistHe does see Dr Christy does have R ear poppingOV 09/22/2019:ACV:R ear ache, since about 4 days, did have a tele visit and was put on amoxicillin and ofloxacin ear drops, the R ear is a better but still has some muffled hearingNo fevers or chills, no N/V or diarrhea, no headaches, no URI sx, no dizzinessOV 12/07/2019:Here for hs routine aptHe feels wellHe does not want to use the cream given by the ENT as it 'betancourt'He has not done the labsHe would like to get his ears flushedHe is here for his MWV alsoOV 04/18/2020:Here for his routine aptHe feels wellHe did do the labsHe has seen Dr Lema the urologistHe would like to get the ears flushed today as he feels that they have flaky wax that comes outOV 10/10/2020:Here for his routine aptHe does wellHe did do the labs but no report yetWants to see podiatry for in grown toe nailsWants to get the ears flushedOV 05/15/2021:Here for his routine aptHe is doing well, has noted a slight tremor and also wants the ears flushedHe did see podiatryNo recent labs notedOV 10/03/2021:Here for his routine apt, he is c/o R hip pain, no injury, no N/T or weakness notedNo recent labs notedHere for his MWV alsoDoes c/o some allergy symptoms, mild cough, sneezing and nasal congestion, no fevers or SOB or wheezing, no chest painOV 03/07/2022:Here for his f/u apt, he is doing well at this time, he did do the labs on 02/27/2022 OV 09/12/2022:Here for his routine apt, he feels well, no recent labs noted OV 03/13/2023: Here for his f/u apt, he is doing very well, does need to see an eye MD as he has noted a 'spot' on his R eye, no diplopia, no eye pain, no change in vision, he also has an apt with Dr Curtis who is to manage his CPAP for his SHELBY OV 08/07/2023: Here for his f/u apt, he is doing well today, he did do the labs OV 11/06/2023: Here for his f/u apt, he feels well today, he has taken the augmentin and feels that this has really helped Marleny Orozco MD [address] [facility], [facility] [address], [place], [address], [facility] 11/06/2023 15:31:27 12/09/2023 text/html This patient has a past medical history significant for PTSD, back pain, bipolar depression, dizziness, HTN, and hypothyroidism. he presents to the office today with complaints of right otalgia. In addition he states that he has been having frontal and maxillary sinus pressure. He has recently been on 2 rounds of antibiotics. States that he has taken ibuprofen as needed. He states that his pain initially starts in the right jaw traveling to the ear. Pain is worse with talking. He does use a nightguard with sleep. States that he has had jaw pain for years and followed with an ENT who had completed MRI and was negative for an acoustic neuroma. Reports the pain as a dull ache intermittent. He does follow with an multicraft operator. He reports that his previous ENT believe he had TMJ but his dentist in believe so due to the lack of other symptomatology. Geovanna Fierro, AUTO [employer]LLISION REPAIR INSTRUCTOR [address] [facility], [address], [place], [address], [place] [facility] [employer] 12/09/2023 16:26:14 03/10/2024 text/html Here to jani Rasmussen PMD: Dr Delgadillo Hx:HTNHypothyroidi smDepressionReview ed social family and surgical historyHere to discuss the above and get labsHe also has some L shoulder pain, cannot lift the shoulder above 90 degrees no radiation, located in the top of the shoulderAlso has pain in the R hand, some 'cold feeling' and feels that he does have some N/THe is RHHe would also like to get an EKG now that he is 51 OV 05/15/17:Here as he would like to review the labs and also discuss the shoulder pain and the hand painHe would like a refill for atenolol and he states that he takes it only once a day OV 07/08/17:Here for his apt for the L shoulder, and the handsHe wants to get a second opinion for the CTS, he states that the L shoulder pain is now resolved with the PT OV 11/11/17:Here for his routine aptHe states that that he is getting a CTS surgery doneHe states that he has not done any new labsHe also notes some R hip pain, denies any numbness or tinglingNo acute or remote trauma notedNo aggravating or relieving factors, he does state that he has been on a treadmill every day since past 2-3 weeks and feels that this could cause his painHe would also like to discuss a depression in the R nail bed since 2-3 weeks, no pain, slight 'yellowing' noted, he states that about a year ago he had an injury to the R nail and thumb but the nail has healed up OV 12/30/17:Here s/p ER follow upHe states that he was seen in the ER for urinary retension OV 02/03/18:Here s/p cystoscope, was noted to have some vomiting and this is now resolvedHe also wants a referral to neurology for MSHas had another blockage, and had another scope and this was done 2 days, and now has a goodman, done by Dr Rushing at [facility], has to keep the goodman till next week OV 02/12/18:Here for his MWVHe is doing well, also sees his urologist now OV 05/14/18:Here for his routine aptHe states that he did see urologyHe feels well OV 08/18/18:Here for his routine aptHe feels wellHe feels that his ear is clogged and he has had 'wax' removed inthe past, no pain, no d/c or any blood OV 09/22/18:Here for his routine aptHe did do the labsHe is doing well at this timeHe did want his ears flushed, doing well otherwiseOV 01/19/19;Here for his routine aptHe feels wellDid do the labs not reported yet OV 04/20/2019:Here for his routine aptHe feels wellHe states that he did do the labsHe also has some R toe painHe did run a door over the R toeAble to ambulate on it OV 08/17/2019:tele visit and he is agreeable to doNo recent labsHe did Dr Ortega the urologistHe does see Dr Christy does have R ear poppingOV 09/22/2019:ACV:R ear ache, since about 4 days, did have a tele visit and was put on amoxicillin and ofloxacin ear drops, the R ear is a better but still has some muffled hearingNo fevers or chills, no N/V or diarrhea, no headaches, no URI sx, no dizzinessOV 12/07/2019:Here for hs routine aptHe feels wellHe does not want to use the cream given by the ENT as it 'betancourt'He has not done the labsHe would like to get his ears flushedHe is here for his MWV alsoOV 04/18/2020:Here for his routine aptHe feels wellHe did do the labsHe has seen Dr Lema the urologistHe would like to get the ears flushed today as he feels that they have flaky wax that comes outOV 10/10/2020:Here for his routine aptHe does wellHe did do the labs but no report yetWants to see podiatry for in grown toe nailsWants to get the ears flushedOV 05/15/2021:Here for his routine aptHe is doing well, has noted a slight tremor and also wants the ears flushedHe did see podiatryNo recent labs notedOV 10/03/2021:Here for his routine apt, he is c/o R hip pain, no injury, no N/T or weakness notedNo recent labs notedHere for his MWV alsoDoes c/o some allergy symptoms, mild cough, sneezing and nasal congestion, no fevers or SOB or wheezing, no chest painOV 03/07/2022:Here for his f/u apt, he is doing well at this time, he did do the labs on 02/27/2022 OV 09/12/2022:Here for his routine apt, he feels well, no recent labs noted OV 03/13/2023: Here for his f/u apt, he is doing very well, does need to see an eye MD as he has noted a 'spot' on his R eye, no diplopia, no eye pain, no change in vision, he also has an apt with Dr Curtis who is to manage his CPAP for his SHELBY OV 08/07/2023: Here for his f/u apt, he is doing well today, he did do the labs OV 11/06/2023: Here for his f/u apt, he feels well today, he has taken the augmentin and feels that this has really helped OV 03/10/2024: Here for his f/u apt, he is doing well now, he did do the labs on 03/03/2024 Marleny Orozco MD [address], [address], [place], [address], [place] [facility] 03/11/2024 20:33:15 07/01/2024 text/html Here to jani Rasmussen PMD: Dr Delgadillo Hx:HTNHypothyroidi smDepressionReview ed social family and surgical historyHere to discuss the above and get labsHe also has some L shoulder pain, cannot lift the shoulder above 90 degrees no radiation, located in the top of the shoulderAlso has pain in the R hand, some 'cold feeling' and feels that he does have some N/THe is RHHe would also like to get an EKG now that he is 51 OV 05/15/17:Here as he would like to review the labs and also discuss the shoulder pain and the hand painHe would like a refill for atenolol and he states that he takes it only once a day OV 07/08/17:Here for his apt for the L shoulder, and the handsHe wants to get a second opinion for the CTS, he states that the L shoulder pain is now resolved with the PT 11/11/17:Here for his routine aptHe states that that he is getting a CTS surgery doneHe states that he has not done any new labsHe also notes some R hip pain, denies any numbness or tinglingNo acute or remote trauma notedNo aggravating or relieving factors, he does state that he has been on a treadmill every day since past 2-3 weeks and feels that this could cause his painHe would also like to discuss a depression in the R nail bed since 2-3 weeks, no pain, slight 'yellowing' noted, he states that about a year ago he had an injury to the R nail and thumb but the nail has healed up OV 12/30/17:Here s/p ER follow upHe states that he was seen in the ER for urinary retension 02/03/18:Here s/p cystoscope, was noted to have some vomiting and this is now resolvedHe also wants a referral to neurology for MSHas had another blockage, and had another scope and this was done 2 days, and now has a goodman, done by Dr Rushing at [facility], has to keep the goodman till next week 02/12/18:Here for his MWVHe is doing well, also sees his urologist now OV 05/14/18:Here for his routine aptHe states that he did see urologyHe feels well 08/18/18:Here for his routine aptHe feels wellHe feels that his ear is clogged and he has had 'wax' removed inthe past, no pain, no d/c or any blood OV 09/22/18:Here for his routine aptHe did do the labsHe is doing well at this timeHe did want his ears flushed, doing well otherwiseOV 01/19/19;Here for his routine aptHe feels wellDid do the labs not reported yet OV 04/20/2019:Here for his routine aptHe feels wellHe states that he did do the labsHe also has some R toe painHe did run a door over the R toeAble to ambulate on it OV 08/17/2019:tele visit and he is agreeable to doNo recent labsHe did Dr Ortega the urologistHe does see Dr Christy does have R ear poppingOV 09/22/2019:ACV:R ear ache, since about 4 days, did have a tele visit and was put on amoxicillin and ofloxacin ear drops, the R ear is a better but still has some muffled hearingNo fevers or chills, no N/V or diarrhea, no headaches, no URI sx, no dizzinessOV 12/07/2019:Here for hs routine aptHe feels wellHe does not want to use the cream given by the ENT as it 'betancourt'He has not done the labsHe would like to get his ears flushedHe is here for his MWV alsoOV 04/18/2020:Here for his routine aptHe feels wellHe did do the labsHe has seen Dr Lema the urologistHe would like to get the ears flushed today as he feels that they have flaky wax that comes outOV 10/10/2020:Here for his routine aptHe does wellHe did do the labs but no report yetWants to see podiatry for in grown toe nailsWants to get the ears flushedOV 05/15/2021:Here for his routine aptHe is doing well, has noted a slight tremor and also wants the ears flushedHe did see podiatryNo recent labs notedOV 10/03/2021:Here for his routine apt, he is c/o R hip pain, no injury, no N/T or weakness notedNo recent labs notedHere for his MWV alsoDoes c/o some allergy symptoms, mild cough, sneezing and nasal congestion, no fevers or SOB or wheezing, no chest painOV 03/07/2022:Here for his f/u apt, he is doing well at this time, he did do the labs on 02/27/2022 OV 09/12/2022:Here for his routine apt, he feels well, no recent labs noted OV 03/13/2023: Here for his f/u apt, he is doing very well, does need to see an eye MD as he has noted a 'spot' on his R eye, no diplopia, no eye pain, no change in vision, he also has an apt with Dr Curtis who is to manage his CPAP for his SHELBY OV 08/07/2023: Here for his f/u apt, he is doing well today, he did do the labs OV 11/06/2023: Here for his f/u apt, he feels well today, he has taken the augmentin and feels that this has really helped OV 03/10/2024: Here for his f/u apt, he is doing well now, he did do the labs on 03/03/2024 OV 07/01/2024: Here for his f/u apt, he feels well today Marleny Orozco MD [address] [place], [place] [address], [facility] [address], [place], [address], [place] [facility] 07/01/2024 15:23:31
[2024-07-18 21:41] VITALS: BP 194/100; O2SAT 99
[2024-07-18 22:01] VITALS: BP 168/89; O2SAT 97
[2024-07-18 22:15] VITALS: O2SAT 97
--- OUTSIDE RECORDS SUMMARY | 2024-07-18 23:09 | XMS_ITS | Patient Health Record ---
Author Organization [facility] As [employer] Address [address] [place] [address] Care Team Providers Care Fruit Vendor Name Role Phone Mack Anderson, Guerita Primary Care Provider Unavail able Lio Sams Unavailable [phone] Randa Nur Unavailable [phone] Migration, Provider Unavailable Unavailable Allergies Allergen (clinical drug ingredient) Drug/Non Drug Allergy documented on EMR Reaction Allergy Type Onset Date Status ADHESIVE TAPE (uncoded) Unknown Allergy 07/24/2023 Active omeprazole Omeprazole Unknown Drug Allergy 07/24/2023 Acti ve Results Component Value Reference Range Notes UDT Reviewed date:05/27/2024 03:38:47 PM Interpretation: Performing Lab: Notes/Report: THC N 0 - 50 ng/ml Cocaine N 0 - 300 ng/ml Amphetamine N 0 - 1000 ng/ml Buprenorphine (BUP) N 0 - 10 ng/ml Secobarbital (Bar) N 0 - 300 ng/ml Oxazepam (BZO) N 0 - 300 ng/ml 8-gmnrsicbcy-7,5-mdfohdri-7, 3-diphenylpyrr olidine (EDDP) N 0 - 300 ng/ml Methamphetamine (MET) N 0 - 1000 ng/ml Methylenedioxymethamphetamine (MDMA) N 0 - 500 ng/ml Morphine (MOP 300/ISG0724) N 0 - 300 ng/ml Methadone (MTD) N 0 - 300 ng/ml Phencyclidine (PCP) N 0 - 25 ng/ml Nortriptyline (TCA) N 0 - 1000 ng/ml Oxycodone N 0 - 300 ng/ml x NN 0 - 300 ng/ml Benzodiazepines Reviewed date:05/29/2024 12:10:12 PM Interpretation: Performing Lab:1, [facility], [place], operated by [facility], [address] [facility], HAILEY HANSEN, Director - [id number] Notes/Report: An exception occurred while processing this report and so it has incomplete data. Please contact [employer] for assistance. Not Medicated Consistent Not Medicated Consistent Medicated Consistent Not Medicated Consistent Not Medicated Consistent Not Medicated Consistent Not Medicated Consistent Not Medicated Consistent Not Medicated Consistent Medicated Consistent 7-Aminoclonazepam 20.5 20.0 ng/mL Temazepam NEGATIVE 40.0 ng/mL Oxazepam NEGATIVE 40.0 ng/mL Midazolam NEGATIVE 40.0 ng/mL Lorazepam NEGATIVE 40.0 ng/mL Nordiazepam NEGATIVE 40.0 ng/mL Diazepam NEGATIVE 40.0 ng/mL Clonazepam NEGATIVE 20.0 ng/mL Hydroxyalprazolam NEGATIVE 20.0 ng/mL Alprazolam NEGATIVE 20.0 ng/mL PDF Report [email or web address] C _ORU Reason For Referral No Information Medications Medication SIG (Take, Route, Frequency, Duration) Notes Start Date End Date Status ProAir HFA 108 (90 Base) MCG/ACT Inhalation 08/14/2023 Unknown clonazePAM 0.5 MG 0.5 tablet Oral twice a day for 30 days 05/27/2024 Active lamoTRIgine 100 MG 1 tablet Orally one int the morning, two at bedtime for 90 days Active Tamsulosin HCl 0.4 MG Oral for 90 Days Active Levothyroxine Sodium 25 MCG Oral 08/14/2023 Active Losartan Potassium-HCTZ 100-25 MG Oral 08/14/2023 Active Atenolol 25 MG Oral 08/14/2023 Acti ve PROCHAMBER MISCELLANEOUS *Reorder from [employer] for eRx and Interaction Alerts* 08/14/2023 Unknown Immunizations Vaccine Route Administration Date Status Comme nts Influenza virus vaccine, quadrivalent (IIV4), split virus, 0.25 mL dosage Unknown 01/18/2015 Administered Influenza virus vaccine, quadrivalent (IIV4), split virus, 0.25 mL dosage Unknown 01/31/2018 Administered Influenza virus vaccine, quadrivalent (IIV4), split virus, 0.25 mL dosage Unknown 02/15/2020 Administered Moderna Covid-19 Vaccine 1st dose Unknown 06/21/2020 Ad ministered Moderna Covid-19 Vaccine 1st dose Unknown 07/19/2020 Ad ministered Moderna Covid-19 Vaccine 1st dose Unknown 03/26/2021 Ad ministered Novel [id number], preservative free Unknown 03/01/2016 Administered Novel Nazwugrux-[id number], preservative free Unknown 01/30/2018 Administered Novel [id number]-[id number], preservative free Unknown 04/20/2019 Administered Td (adult), adsorbed Unknown 06/13/2017 Administered Social History Tobacco Use: Social History Observation Description Date Details (start date - stop date) Never Smoker NA - NA Sex Assigned At : Social History Observation Description Sex Assigned At Male Tobacco Control (Standard) Question Answer Notes Tobacco use: Nonsmoker Problems Problem Type SNOMED Code ICD Code Onset Dates Problem Status W/U Status Risk Notes Problem Bipolar affective disorder, currently depressed, mild (347402872) Bipolar disorder, current episode depressed, mild (F31.31) Active confirmed Problem 51344258 Generalized anxiety disorder (F41.1) Active confirmed Problem Posttraumatic stress disorder (91663695) Post-traumatic stress disorder, chronic (F43.12) Active confirmed Vital Signs Heart Rate 62 /min 05/27/2024 Height-cm 177.80 cm 05/27/2024 Blood pressure diastolic 75 mm Hg 05/27/2024 Weight-kg 97.52 kg 05/27/2024 Height 70.00 in 05/27/2024 Blood pressure systolic 129 mm Hg 05/27/2024 Weight 215 lbs 05/27/2024 BMI 30.85 kg/m2 05/27/2024 Encounters Encounter Location Date Provider Diagnosis [facility] [employer] [facility] [address] [facility] [address] [place] [address] 11/07/2023 [employer] [facility] [employer] [facility] [address] [facility] [address] [place] [address] 02/19/2024 [employer] [facility] [employer] [facility] [address] [facility] [address] [place] [address] 03/05/2024 [employer] [facility] [employer] [facility] [address] [place] [address] 07/24/2023 Lio Sams Bipolar disorder, current episode depressed, mild F31.31 ; Generalized anxiety disorder F41.1 and Post-traumatic stress disorder, chronic F43.12 [facility], [facility] [address] [place] [address] 07/25/2023 Randa Boom Post-traumatic stress disorder, chronic F43.12 [facility], [facility] [address] [place] [address] 07/31/2023 Randa Boom Post-traumatic stress disorder, chronic F43.12 ; Obsessive-compulsive disorder, unspecified F42.9 ; Generalized anxiety disorder F41.1 and Bipolar disorder, current episode depressed, mild F31.31 [facility], [facility] [address] [place] [address] 08/01/2023 Randa Boom [facility], [facility] [address] [place] [address] 08/08/2023 Randa Boom Post-traumatic stress disorder, chronic F43.12 [facility], [facility] [address] [place] [address] 08/14/2023 Randa Boom Post-traumatic stress disorder, chronic F43.12 ; Obsessive-compulsive disorder, unspecified F42.9 ; Bipolar disorder, current episode depressed, mild F31.31 and Generalized anxiety disorder F41.1 [facility], [facility] [address] [place] [address] 08/15/2023 Randa Boom Post-traumatic stress disorder, chronic F43.12 [facility], [facility] [address] [place] [address] 08/21/2023 Randa Boom Generalized anxiety disorder F41.1 ; Obsessive-compulsive disorder, unspecified F42.9 ; Post-traumatic stress disorder, chronic F43.12 and Bipolar disorder, current episode depressed, mild F31.31 [facility], [facility] [address] [place] [address] 08/22/2023 Randa Boom Post-traumatic stress disorder, chronic F43.12 [facility], [facility] [address] [place] [address] 09/18/2023 Randa Boom Bipolar I disorder, most recent episode depressed, mild F31.31 ; Other obsessive-compulsive disorders F42.8 ; Generalized anxiety disorder F41.1 and Chronic post-traumatic stress disorder (PTSD) F43.12 [facility], [facility] [address] [place] [address] 09/19/2023 Randa Boom Post-traumatic stress disorder, chronic F43.12 [facility], [facility] [address] [place] [address] 09/19/2023 Lio Sams Bipolar disorder, current episode depressed, mild F31.31 ; Generalized anxiety disorder F41.1 and Post-traumatic stress disorder, chronic F43.12 [facility], [facility] [address] [place] [address] 09/26/2023 Randa Boom Generalized anxiety disorder F41.1 ; Post-traumatic stress disorder, chronic F43.12 and Bipolar disorder, current episode depressed, mild F31.31 [place] [address] [place] [address] 10/02/2023 Randa Boom Generalized anxiety disorder F41.1 ; Post-traumatic stress disorder, chronic F43.12 and Bipolar disorder, current episode depressed, mild F31.31 [facility] [address] [place] [address] 10/03/2023 Randa Boom Generalized anxiety disorder F41.1 ; Bipolar disorder, current episode depressed, mild F31.31 and Post-traumatic stress disorder, chronic F43.12 [facility], [place] [address] [place] [address] 10/10/2023 Randa Boom Generalized anxiety disorder F41.1 ; Bipolar disorder, current episode depressed, mild F31.31 and Post-traumatic stress disorder, chronic F43.12 [facility], [facility] [address] [place] [address] 10/16/2023 Randa Boom Bipolar disorder, current episode depressed, mild F31.31 ; Generalized anxiety disorder F41.1 and Post-traumatic stress disorder, chronic F43.12 [facility], [facility] [address] [place] [address] 10/24/2023 Randa Boom Post-traumatic stress disorder, chronic F43.12 [facility], [facility] [address] [place] [address] 10/30/2023 Randa Boom Bipolar disorder, current episode depressed, mild F31.31 ; Generalized anxiety disorder F41.1 and Post-traumatic stress disorder, chronic F43.12 [facility], [facility] [address] [place] [address] 11/13/2023 Randa Boom Bipolar disorder, current episode depressed, mild F31.31 ; Generalized anxiety disorder F41.1 and Post-traumatic stress disorder, chronic F43.12 [facility], [facility] [address] [place] [address] 11/20/2023 Randa Boom Bipolar disorder, current episode depressed, mild F31.31 ; Generalized anxiety disorder F41.1 and Post-traumatic stress disorder, chronic F43.12 [facility], [facility] [address] [place] [address] 11/28/2023 Randa Boom [facility], [facility] [address] [place] [address] 12/04/2023 Randa Boom Bipolar disorder, current episode depressed, mild F31.31 ; Generalized anxiety disorder F41.1 and Post-traumatic stress disorder, chronic F43.12 [facility], [facility] [address] [place] [address] 12/05/2023 Randa Boom [facility], [facility] [address] [place] [address] 12/12/2023 Randa Boom [facility], [facility] [address] [place] [address] 12/18/2023 Randa Boom Bipolar disorder, current episode depressed, mild F31.31 ; Generalized anxiety disorder F41.1 and Post-traumatic stress disorder, chronic F43.12 [facility], [facility] [address] [place] [address] 12/19/2023 Randa Boom Post-traumatic stress disorder, chronic F43.12 [facility], [facility] [address] [place] [address] 12/25/2023 Lio Latrell Bipolar disorder, current episode depressed, mild F31.31 ; Generalized anxiety disorder F41.1 and Post-traumatic stress disorder, chronic F43.12 [facility], [facility] [address] [place] [address] 12/26/2023 Randa Nur [facility], [facility] [address] [place] [address] 01/08/2024 Randa Nur Bipolar disorder, current episode depressed, mild F31.31 ; Generalized anxiety disorder F41.1 and Post-traumatic stress disorder, chronic F43.12 [facility], [facility] [address] [place] [address] 01/09/2024 Randa Nur [facility], [facility] [address] [place] [address] 01/16/2024 Randa Nur [facility], [facility] [address] [place] [address] 01/22/2024 Randa Nur Bipolar disorder, current episode depressed, mild F31.31 ; Generalized anxiety disorder F41.1 and Post-traumatic stress disorder, chronic F43.12 [facility], [facility] [address] [place] [address] 01/23/2024 Randa Nur [facility], [facility] [address] [place] [address] 01/30/2024 Randa Nur [facility], [facility] [address] [place] [address] 02/05/2024 Randa Nur Bipolar disorder, current episode depressed, mild F31.31 ; Generalized anxiety disorder F41.1 and Post-traumatic stress disorder, chronic F43.12 [facility], [facility] [address] [place] [address] 02/06/2024 Randa Nur [facility], [facility] [address] [place] [address] 02/13/2024 Randa Nur [facility], [facility] [address] [place] [address] 02/21/2024 Lio Sams Bipolar disorder, current episode depressed, mild F31.31 ; Generalized anxiety disorder F41.1 and Post-traumatic stress disorder, chronic F43.12 [facility], [facility] [address] [place] [address] 02/27/2024 [facility] [address] [place] [address] 03/04/2024 Randa Boom Bipolar disorder, current episode depressed, mild F31.31 ; Generalized anxiety disorder F41.1 and Post-traumatic stress disorder, chronic F43.12 [facility], [facility] [address] [place] [address] 03/18/2024 Randa Boom Bipolar disorder, current episode depressed, mild F31.31 ; Generalized anxiety disorder F41.1 and Post-traumatic stress disorder, chronic F43.12 [facility], [facility] [address] [place] [address] 04/01/2024 Randa Boom Bipolar disorder, current episode depressed, mild F31.31 ; Generalized anxiety disorder F41.1 and Post-traumatic stress disorder, chronic F43.12 [facility], [facility] [address] [place] [address] 04/17/2024 Randa Boom Generalized anxiety disorder F41.1 ; Bipolar disorder, current episode depressed, mild F31.31 and Post-traumatic stress disorder, chronic F43.12 [facility], [facility] [address] [place] [address] 04/29/2024 Randa Obom Bipolar disorder, current episode depressed, mild F31.31 ; Generalized anxiety disorder F41.1 and Post-traumatic stress disorder, chronic F43.12 [facility], [facility] [address] [place] [address] 04/30/2024 Randa Nur [facility], [facility] [address] [place] [address] 05/07/2024 Randa Boom [facility], [facility] [address] [place] [address] 05/13/2024 Randa Boom Bipolar disorder, current episode depressed, mild F31.31 ; Generalized anxiety disorder F41.1 and Post-traumatic stress disorder, chronic F43.12 [facility], [facility] [address] [place] [address] 05/14/2024 Randa Nur [facility], [facility] [address] [place] [address] 05/21/2024 Randa Boom [facility], [facility] [address] [place] [address] 05/27/2024 Randabj Nur Bipolar disorder, current episode depressed, mild F31.31 ; Generalized anxiety disorder F41.1 and Post-traumatic stress disorder, chronic F43.12 [facility], [facility] [address] [place] [address] 05/27/2024 Lio Sams Bipolar disorder, current episode depressed, mild F31.31 ; Generalized anxiety disorder F41.1 ; Post-traumatic stress disorder, chronic F43.12 and LOUIE (generalized anxiety disorder) F41.1 [facility], [facility] [address] [place] [address] 05/28/2024 Randa Boom [facility], [facility] [address] [place] [address] 06/04/2024 Randa Nur [facility], [facility] [address] [place] [address] 06/10/2024 Randa Nur Bipolar disorder, current episode depressed, mild F31.31 ; Generalized anxiety disorder F41.1 and Post-traumatic stress disorder, chronic F43.12 [facility], [facility] [address] [place] [address] 06/11/2024 Randa Boom [facility], [facility] [address] [place] [address] 06/24/2024 Randabj Nur Encounter for screening for depression Z13.31 ; Bipolar disorder, current episode depressed, mild F31.31 ; Generalized anxiety disorder F41.1 and Post-traumatic stress disorder, chronic F43.12 [facility], [facility] [address] [place] [address] 06/25/2024 Randa Boom [facility], [facility] [address] [place] [address] 07/02/2024 Randa Boom [facility], [facility] [address] [place] [address] 07/08/2024 Randa Boom Encounter for screening for depression Z13.31 ; Bipolar disorder, current episode depressed, mild F31.31 ; Generalized anxiety disorder F41.1 and Post-traumatic stress disorder, chronic F43.12 [facility], [facility] [address] [address] 07/09/2024 Randa Nur [facility], [place] [address] [facility] [address] [address] 07/16/2024 Randa Nur [facility], [address] [address] 08/31/2023 Provider Migration [facility], [address] [address] 09/01/2023 Provider Migration [facility], [address] [address] 11/25/2023 Lio Latrell Bipolar disorder, current episode depressed, mild F31.[address] [address] 11/25/2023 Lio Latrell Bipolar disorder, current episode depressed, mild F31.[address] [address] 04/16/2024 Lio Latrell [address] [address] 02/28/2024 Lio Latrell Assessments Encounter Date Diagnosis (ICD Code) Assessment Notes Treatment Notes Treatment Clinical Notes Section Notes 09/19/2023 Bipolar disorder, current episode depressed, mild (ICD-10 - F31.31) Bipolar Disorder - Assessment: Patient reports no major mood swings, manic, or depressive episodes in the last two months. - Plan: - Continue current medications: Lamotrigine 100 mg in the morning and 200 mg at night, Clonazepam 0.5 mg twice a day. - Follow-up in three months. Hypertension - Assessment: Patient is taking Losartan with hydrochlorothiazi de. - Plan: - Continue current medication and monitor blood pressure. Hypothyroidism - Assessment: Patient is taking Levothyroxine. - Plan: - Continue current medication and monitor thyroid function. Anxiety - Assessment: Patient is taking Atenolol and Clonazepam. - Plan: - Continue current medications and monitor anxiety levels. Vagus Nerve Stimulator (VNS) Study - Assessment: Patient has not been able to connect with the student records coordinator. - Plan: - Encourage patient to continue attempting to establish contact and complete the interview process. Possible Omeprazole Allergy - Assessment: Patient reports a potential allergy to omeprazole and is scheduled to see an needlemaker this month. - Plan: - Await needlemaker evaluation and follow recommendations accordingly. Follow-up - Plan: - Schedule a follow-up appointment in three months to assess the patient's overall mental and physical health status and medication management. 09/19/2023 Generalized anxiety disorder (ICD-10 - F41.1) Bipolar Disorder - Assessment: Patient reports no major mood swings, manic, or depressive episodes in the last two months. - Plan: - Continue current medications: Lamotrigine 100 mg in the morning and 200 mg at night, Clonazepam 0.5 mg twice a day. - Follow-up in three months. Hypertension - Assessment: Patient is taking Losartan with hydrochlorothiazi de. - Plan: - Continue current medication and monitor blood pressure. Hypothyroidism - Assessment: Patient is taking Levothyroxine. - Plan: - Continue current medication and monitor thyroid function. Anxiety - Assessment: Patient is taking Atenolol and Clonazepam. - Plan: - Continue current medications and monitor anxiety levels. Vagus Nerve Stimulator (VNS) Study - Assessment: Patient has not been able to connect with the student records coordinator. - Plan: - Encourage patient to continue attempting to establish contact and complete the interview process. Possible Omeprazole Allergy - Assessment: Patient reports a potential allergy to omeprazole and is scheduled to see an needlemaker this month. - Plan: - Await needlemaker evaluation and follow recommendations accordingly. Follow-up - Plan: - Schedule a follow-up appointment in three months to assess the patient's overall mental and physical health status and medication management. 09/18/2023 Other obsessive-comp ulsive disorders (ICD-10 - F42.8) 09/18/2023 Bipolar I disorder, most recent episode depressed, mild (ICD-10 - F31.31) 09/19/2023 Post-traumatic stress disorder, chronic (ICD-10 - F43.12) 09/26/2023 Generalized anxiety disorder (ICD-10 - F41.1) 10/02/2023 Generalized anxiety disorder (ICD-10 - F41.1) 10/03/2023 Generalized anxiety disorder (ICD-10 - F41.1) 10/10/2023 Generalized anxiety disorder (ICD-10 - F41.1) 10/16/2023 Bipolar disorder, current episode depressed, mild (ICD-10 - F31.31) Client reports I realize that I'm isolating more and procrastinating things. Client has been mulling his readiness to make some beneficial changes (behavioral) in his life. He is wanting to interact more with family verbally and physically (hugs). This is out of the normal according to his history. Therapist actively listened to client and utilized a cognitive behavioral intervention in helping the client explore strategies for coping with his mother and sister's reactions if he initiates the changes (being able to set boundaires, feeling confident in his decision, etc.). 10/24/2023 Post-traumatic stress disorder, chronic (ICD-10 - F43.12) Therapist continued the discussion on mindfulness journalling to help relax and reduce anxiety/hypervigil ance. This week's mindfulness topic was Be an Objective Advisor. Utilizing a cognitive therapy approach, therapist facilitated, and group members participated in a discussion on attachment issues, how they develop, and strategies to cope with them. Group members are to process today's discussion and complete 1 mindfulness, complete the sentence journaling prompt and be prepared to share it during the next group meeting. Client states he can just move one step at a time to trust people 10/30/2023 Bipolar disorder, current episode depressed, mild (ICD-10 - F31.31) Client reports he has become uninterested in doing any of his usual pleasurable activities. He reports his mother's memory issues are becoming more noticeable. He reports every time his mom puts on weight that doctors consider healthy, she will start losing weight again. Client's mother has her mind made up about what she is willing and not willing to do regarding her care. Therapist utilized a cognitve intervention by helping client to gain insight as to how he also often has very black and white thinking and how he can extrapolate what he would tell his mother in a situation and how can he use that type of thinking for himself. 11/13/2023 Bipolar disorder, current episode depressed, mild (ICD-10 - F31.31) 11/20/2023 Bipolar disorder, current episode depressed, mild (ICD-10 - F31.31) Client reports he has been feeling increasingly depressed, I'm spiralling down and I want to just let it. He reports that the only thing that might be triggering this increase is his health issues. He reports he lacks interest to work on it. I just want to give into it. Therapist asked if he had thought about the benefits of using his coping strategies. Client reported he had not. Therapist utilized a cognitive behavioral intervention to help client explore strategies to identify his coping strategies, make a list of rewards, and finally to make a list of the benefits of successfully using a coping strategy. 11/25/2023 Bipolar disorder, current episode depressed, mild (ICD-10 - F31.31) 11/25/2023 Bipolar disorder, current episode depressed, mild (ICD-10 - F31.31) 12/04/2023 Bipolar disorder, current episode depressed, mild (ICD-10 - F31.31) 12/19/2023 Post-traumatic stress disorder, chronic (ICD-10 - F43.12) Patient participated in group therapy today related to PTSD resulting from childhood events. Patient cooperated well with other members of the group. Patient was cooperative and did share during the session which focused on various forms of assertiveness and non-assertiveness. Based on today's session, I recommend continued participation in PTSD group. Resolve past childhood/family issues, leading to less anger and depression, greater self-esteem, security, and confidence. Client's journal entries for this week focused on practicing a growth mindset. Utilizing a cognitive behavioral therapy approach, therapist facilitated, and group members participated in a discussion that centered on starting to practice assertive styles. Clients used the insights gained in the last group session to determine how to begin responding assertively. Client stated they learned 12/25/2023 Bipolar disorder, current episode depressed, mild (ICD-10 - F31.31) Insomnia and Anxiety - Assessment: Patient reports difficulty falling asleep due to increased anxiety upon lying down. Has been trying deep breathing exercises and walking on the treadmill, with limited success. Has increased melatonin intake, which has shown some improvement in sleep quality. Patient reports first great night of sleep in a long time after recent changes. Patient has been paying more attention to body cues and trying to go to bed when feeling tired. - Plan: a. Continue melatonin at a lower dose of 1-1.5 mg at 6 p.m. to help adjust to the sunset. b. Maintain a consistent sleep schedule, aiming for six hours of sleep per night. c. Encourage patient to engage in morning activities to avoid going back to bed. d. Schedule a follow-up appointment in two months to assess sleep progress. e. Advise patient to stick to a 9:30 AM wake-up time, regardless of sleep quality. Ear and Sinus Issues - Assessment: Patient reports a history of ear infections and recent dizziness upon lying down. Has undergone CT scans and is awaiting results. Dizziness when lying down has gone away. - Plan: a. Monitor symptoms and follow up on CT scan results. b. Consider referral to an ENT specialist if symptoms persist or worsen. Temporomandibular Joint (TMJ) Pain - Assessment: Patient reports jaw pain, possibly related to TMJ. No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 07/08/2024 Post-traumatic stress disorder, chronic (ICD-10 - F43.12) 06/24/2024 Post-traumatic stress disorder, chronic (ICD-10 - F43.12) 09/18/2023 Chronic post-traumatic stress disorder (PTSD) (ICD-10 - F43.12) 12/04/2023 Other Client reports he has only been getting about 5 hours of sleep per night for the last several weeks. He has been taking care of tasks around the home that his mother can no longer do, but not much more. Therapist actively listened to client and asked questions for clarity. Therapist assisted client by utilizing a cognitive behavioral intervention to help him exploe strategies to be more compassionate with himself and give himself credit for what he is getting done. 12/18/2023 Other Client continu es to have issues with his sinuses and ears. He is to have tests tomorrow to try to determine what is causing the problem. Client reports as soon as he turns out the light at night, his anxiety shoots up. He is trying to pay more attention to the signals his body is sending him. Therapist actively listened to client and asked questions for clarification. Therapist utilized a cognitive behavioral intervention to help client explore the benefits of sleep hygiene and creating a routine. 01/08/2024 Other Client continu es to struggle with medical issues. He azlso discussed some of the family dysfunction. He primarily focused on his sleep issues. Therapist actively listened to client and asked questions fo rclarification. Therapist actively listened to client and utilized a cognitive behavioral intervention to help him explore strategies to gain and maintain a better sleep cycle. 01/22/2024 Other Client is frustrated by some computer/internet issues that he has not been able to resolve. He reports he had a recent medication change and it is making him fatigued. The coninued health problems affects his mood. 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 Therapist actively listened to client and helped him to explore strategies to ensure he is also doing some nice, calming activities. 02/05/2024 Other Client reports he is starting to feel ready to roll play situations that he has struggled with throughout his life. Client reports he struggles with asking for help, no matter where he is. (He does not have a problem answering others with questions). He often feels overwhelmed by his emotions. He also does not have anyone to share his feelings with. Therapist actively listened to client and helped him utilizing a cognitive behavioral intervention to help client gain insight to elements that mold his perceptions of emotions. 03/04/2024 Other Client reports he is all caught up on his doctor and dental appointments. Client reports he started having a panic attack and they found out it was medication induced and was able through self talk to keep it from getting as bad as it might have been. He focused on some of the dynamics within his family (mother and sister) that sometimes do not take his feelings into considerations. Therapist actively listened to client and utilized a cognitive behavioral intervention to help client explore strategies to manage these interactions with less anxiety. 03/18/2024 Other Client states that the psychiatrist's suggestion is helping client wake at a reasonable time each morning but he still has difficulty with falling alseep at a reasonable time. Client will discuss this with the doctor when client sees him next. Client focused on concerns about the election outcome. Therapist actively listened to client and utilized a cognitive behavioral intervention by helping client explore strategies to be able to stay in touch with the news while not increasing his anxiety (time limits, finding news/activities that create ballance). 04/01/2024 Other Client reports he is not feeling the best but he has felt worse in the past. Client staes his mother is experiencing more lonliness, I need to be paying more attention to this. She is showing her age in that she is slowing down physically and mentally. Client has been feeling more anxious about the trip to [place] with his sister and her family. Client states this will probably be his last trip to [place] due to his mother's age and he will eventially not be able to leaver her at home alone. Therapist actively listened to client and utilized a cognitve behavioral intervention to help client explore strategies to reduce his anxieties (helping client balance out some of the negatives with more positive self talk). PHQ=13 moderate LOUIE=8 mild 04/17/2024 Other Client reports all the things he usually does to reduce his anxiety are not working and in fact, are increase his anxiety. He states he used to stress between and his birthday in May. He has gone a number of years without this happening, but now it is back. Therapist actively listened to client and asked questions for clarification. Therapist then assisted client by helping him to explore strategies to help minimize his anxiety for example, going back to watch cartoons and allowing some mindless pleasure. PHq=14 moderate LOUIE=10 moderate 04/29/2024 Other Client reports his anxiety has been up the last couple of days because he wants to solve a problem with a dresser for his sister but his brother in law does not want him to solve it. When client was working, he did trouble shooting and he has the overwhelming urge to solve the dresser problem but adryan won't allow it. He is utilizing his self talk to reduce his anxiery and it has been helping. Therapist actively listened to client and provided a supportive intervention by helping client maintain her current level of functioning through the showing of acceptance. Therpist also validated client's insight and solution to this issue. PHQ=16 moderately severe LOUIE=10 moderate 05/13/2024 Other Client reports he has had some confrontations with his sister who said, You mean I have to consider your feelings? His sister has a tendency to be demanding and want things her way without consideration for the other person's needs. Client has been standing up for himself and setting boundaries with his sister, however, it still causes an increase in his anxiety. Therapist actively listened to client and utilized a cognitive behavioral intervention to help client explore strategies to minimize his anxiety. PHQ=13 moderate LOUIE=11 moderate 05/27/2024 Other Client reports his anxiety has felt very high. He states he is unable to focus on any reading for more than 5 minutes. He is able to identify that current world events as part of his anxiety. He also revealed he was treated for ADD in the past. He reports he had never mentioned this to the psychiatrist. Therapist actively listened to client and utilized a cognitive behavioral intervention to help client explore strategies to minimize his anxiety (to read a lower reading level to hold his attention, having plenty of choices so if one thing does not work to help reduce anxiety). PHQ=11 moderate LOUIE=9 mild 05/27/2024 Other Anxiety and Depression - Assessment: Patient reports severe anxiety for the past 4 days, manifesting differently than usual and affecting concentration. Depression is also contributing to focus issues. Possible trigger identified as exposure to news and stress related to disability income and Medicaid cuts. Usual coping tools were ineffective. Patient found relief after individual therapy session with Randa. - Plan: - Continue current therapy sessions. - Consider scheduling additional appointments if needed. - Encourage patient to utilize new coping strategies discussed with Randa, such as reading simpler books, engaging in multiple activities, and working on crossword puzzles. Gastroesophageal Reflux Disease (GERD) - Assessment: Patient reports recurrence of heartburn and acid reflux, potentially related to anxiety. - Plan: - Monitor symptoms. - Consider evaluation for GERD management if symptoms persist or worsen. Physical Activity and Hip Pain - Assessment: Patient is using a treadmill for 17 minutes a day at 2.5 miles per hour, but needs to be cautious due to hip pain. Patient reports not experiencing relaxation after exercise as before. - Plan: - Encourage patient to continue with the current exercise regimen, while being mindful of hip pain. - Advise patient to adjust exercise pacing and potentially increase duration at a slower pace. - Consider referral to a physical therapist if hip pain worsens or interferes with daily activities. Medication Management - Assessment: Patient is currently taking Lamotrigine 100 mg (1 tablet in the morning, 2 tablets at night) and Clonazepam 0.5 mg (0.5 tablet twice a day). - Plan: - Continue with the current medication regimen. - Monitor patient's response to medications and adjust as needed. Follow-up - Plan: - Maintain current appointment schedule with the option to schedule additional appointments if needed. - Continue [place] 3 months. - Palmer in [place] for medication refills. 06/10/2024 Other Cllient reports he is having problems with one of his medications and through some house servant work has narrowed it down to his thyroid medication. He will be contacting his PCP about this issue. He states his grand nephew will be born today and this baby will change the family dynamics. Client grew up with mother only focused on client's sister and father focused only on client. Therapist actively listened to client and utilized a cognitive behavioral intervention to help client explore strategies to allow the family dynamics play out in their own way and revisit this when something becomes an actual issue. PHQ=16 moderately severe LOUIE=11 moderate 06/24/2024 Other Client reports he is sleeping abouat 5 hours per night. He reports a low but noticeable level of anxiety all the time. He has been having difficulty pinpointing the cause of the anxiety. Therapist utilized a cognitive intervention to help client explore possible contributing factors (his mother continues to show additional signs of ageing, which when she dies will cause client to have to move, concerns about his SSD, the chaos in politics at this time, and his ongoing health issues). Therapist then utilized a cognitive behavioral intervention to help client explore strategies to minimize his anxiety. PHQ=14 moderate LOUIE=11 moderate 07/08/2024 Other Client focused on his family's perception of and response to his mental health diagnoses. He focused on his sister who has not been very supportive of his mental health issues. Therapist actively lisetened to client and utilized a cognitive behavioral intervention to help client explore strategies to continue processing these memories so that they no longer cause him to be trauma triggered (healthy self-talk). PHQ=13 moderate LOUIE=11 moderate Plan Of Treatment Next Appt Details Provider Name:Randa Nur , 07/22/2024 01:00:00 PM, [address], [address], [address], Provider Name:Randa Nur , 08/05/2024 01:00:00 PM, [address], [address], [address], Provider Name:Randa Nur , 08/19/2024 01:00:00 PM, [address], [facility] [address], [address], Provider Name:Lio Sams , 08/21/2024 03:30:00 PM, [address], [facility] [address], [address], Provider Name:Randa Nur , 09/02/2024 02:00:00 PM, [address], [facility] [address], [address], Provider Name:Randa Nur , 04/22/2025 02:00:00 PM, [address], [address], [place], [address], Provider Name:Randa Nur , 04/29/2025 02:00:00 PM, [address], [address], [place], [address], Provider Name:Randa Nur , 05/06/2025 02:00:00 PM, [address], [address], [place], [address], Provider Name:Randa Nur , 05/13/2025 02:00:00 PM, [address], [address], [place], [address], Provider Name:Randa Nur , 05/20/2025 02:00:00 PM, [facility], [place], [address], Provider Name:Randa Nur , 05/27/2025 02:00:00 PM, [address], [address], [place], [address], Provider Name:Randa Nur , 06/03/2025 02:00:00 PM, [facility], [place], [address], Provider Name:Randa Nur , 06/10/2025 02:00:00 PM, [facility], [place], [address], Provider Name:Randa Nur , 06/17/2025 02:00:00 PM, [facility], [place], [address], Provider Name:Randa Nur , 06/24/2025 02:00:00 PM, [address], [address], [place], [address], Provider Name:Randa Nur , 07/01/2025 02:00:00 PM, [address], [address], [place], [address], Provider Name:Randa Nur , 07/08/2025 02:00:00 PM, [address], [address], [place], [address], Provider Name:Randa Nur , 07/15/2025 02:00:00 PM, [address], [address], [place], [address], Provider Name:Randa Nur , 07/22/2025 02:00:00 PM, [address], [address], [place], [address], Provider Name:Randa Nur , 07/29/2025 02:00:00 PM, [address], [address], [place], [address], Provider Name:Randa Nur , 08/05/2025 02:00:00 PM, [address], [address], [place], [address], Provider Name:Randa Nur , 08/12/2025 02:00:00 PM, [address], [address], [place], [address], Provider Name:Randa Nur , 08/19/2025 02:00:00 PM, [facility], [place], [address], Provider Name:Randa Nur , 08/26/2025 02:00:00 PM, [facility], [place], [address], Provider Name:Randa Nur , 09/02/2025 02:00:00 PM, [address], [address], [place], [address], Insurance Providers Payer Name Payer Address Payer Phone Subscriber Number Group Number Insured Name Patient Relationship to Insured Coverage Start Date Coverage End Date Medicare-[place] Medicare [address] [place] [phone] [id number] ANDREW WEEKS Self - patient is the insured [employer] Medicare Supplement [address] [address] [place] [address] [id number] ANDREW WEEKS Self - patient is the insured Medical (General) History Medical History History ICD Code Problems: Chronic post-traumatic stress disorder Generalized anxiety disorder Hypothyroidism Mild depressed bipolar I disorder Obsessive-compulsive disorder Primary insomnia Vitamin D deficiency , Surgical History Surgery Date(Month/Year) Other
--- OUTSIDE RECORDS SUMMARY | 2024-07-18 23:09 | XMS_ITS | Encounter Summary ---
Author Organization [facility] Address 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
--- OUTSIDE RECORDS SUMMARY | 2024-07-18 23:09 | XMS_ITS | Encounter Summary ---
Author Organization [facility] Address [address] [place] [address] Care Team Providers Care Assistant Spa Director Name Role Phone Marleny Orozco MD Primary Care Provider Encounter Details Date Type Department Care Team (Late st Contact Info) Description 01/10/2007 Outpatient [facility] [address] [place] [address] 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
--- OUTSIDE RECORDS SUMMARY | 2024-07-18 23:09 | XMS_ITS | Encounter Summary ---
Author Organization [facility] Address [address] [place] [address] Care Team Providers Care Proposal Manager Writer Name Role Phone Marleny Orozco MD Primary Care Provider Encounter Details Date Type Department Care Team (Late st Contact Info) Description 11/27/2006 Outpatient [facility] [address] [place] [address] 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
--- OUTSIDE RECORDS SUMMARY | 2024-07-18 23:09 | XMS_ITS | Encounter Summary ---
Author Organization [facility] Address [address] [place] [address] Care Team Providers Care Roof Technician Name Role Phone Marleny Orozco MD Primary Care Provider Encounter Details Date Type Department Care Team (Late st Contact Info) Description 07/08/2007 Outpatient [facility] [address] [place] [address] 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
--- OUTSIDE RECORDS SUMMARY | 2024-07-18 23:09 | XMS_ITS | Encounter Summary ---
Author Organization [facility] Address [address] [place] [address] Care Team Providers Care Senior Front End Web Developer Name Role Phone Marleny Orozco MD Primary Care Provider Encounter Details Date Type Department Care Team (Late st Contact Info) Description 11/07/2006 Outpatient [facility] [address] [place] [address] [place] [address] Mallika Schmitz MD Social History Tobacco Use Types Packs/Day Years Used Date Smoking Tobacco: Never Assessed Sex and Gender Information Value Date Recorded Sex Assigned at Not on file Legal Sex Male 4:01 AM CARD BRUSHER Gender Identity Not on file Sexual Orientation Not on file documented as of this encounter Plan of Treatment Not on file documented as of this encounter Visit Diagnoses Not on filedocumented in this encounter Care Teams Senior Front End Web Developer Relationship Specialty Start Date End Date Marleny Orozco MD PCP - General Internal Medicine 12/17/17 documented as of this encounter
--- OUTSIDE RECORDS SUMMARY | 2024-07-18 23:09 | XMS_ITS | Clinical Summary ---
Author Organization [facility] Address [address] [place] [address] Phone Care Team Providers Care Emt/Paramedic Name Role Phone Marleny Orozco MD Primary Care Provider Allergies No known active allergies Medications lisinopril (PRINIVIL) 10 mg tablet Take 10 mg by mouth daily. Active atenolol (TENORMIN) 25 mg tablet Take 25 mg by mouth daily. 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 Active lamoTRIgine (LaMICtal) 100 mg tablet Take [...] on file Legal Sex Male 4:01 AM GEARMAN Gender Identity Not on file Sexual Orientation [...] VACCINE (#1) 2023 01/20/2015 Insurance Care Teams Emt/Paramedic Relationship Specialty Start Date End Date Marleny Orozco MD PCP - General Internal Medicine 12/17/17
--- OUTSIDE RECORDS SUMMARY | 2024-07-18 23:09 | XMS_ITS | Encounter Summary ---
Author Organization [facility] Address [address] [place] [address] Care Team Providers Care Change Management Expert Name Role Phone Marleny Orozco MD Primary Care Provider Encounter Details Date Type Department Care Team (Late st Contact Info) Description 09/11/2006 Outpatient [facility] [address] [place] [address] [address]. [place], [place] [id number] Mallika Schmitz MD Social History Tobacco Use Types Packs/Day Years Used Date Smoking Tobacco: Never Assessed Sex and Gender Information Value Date Recorded Sex Assigned at Not on file Legal Sex Male 4:01 AM INTERVENTIONIST Gender Identity Not on file Sexual Orientation Not on file documented as of this encounter Plan of Treatment Not on file documented as of this encounter Visit Diagnoses Not on filedocumented in this encounter Care Teams Change Management Expert Relationship Specialty Start Date End Date Marleny Orozco MD PCP - General Internal Medicine 12/17/17 documented as of this encounter
--- OUTSIDE RECORDS SUMMARY | 2024-07-18 23:09 | XMS_ITS | Encounter Summary ---
Author Organization [facility] Address [address] [place] [address] Care Team Providers Care Career Development Coordinator Name Role Phone Marleny Orozco MD Primary Care Provider Encounter Details Date Type Department Care Team (Late st Contact Info) Description 03/27/2007 Outpatient [facility] [address] [place] [address] [place] [address] Mallika Schmitz MD Social History Tobacco Use Types Packs/Day Years Used Date Smoking Tobacco: Never Assessed Sex and Gender Information Value Date Recorded Sex Assigned at Not on file Legal Sex Male 4:01 AM UX DEVELOPER Gender Identity Not on file Sexual Orientation Not on file documented as of this encounter Plan of Treatment Not on file documented as of this encounter Visit Diagnoses Not on filedocumented in this encounter Care Teams Career Development Coordinator Relationship Specialty Start Date End Date Marleny Orozco MD PCP - General Internal Medicine 12/17/17 documented as of this encounter
--- OUTSIDE RECORDS SUMMARY | 2024-07-18 23:09 | XMS_ITS | Encounter Summary ---
Author Organization [facility] Address [address] [place] [address] Care Team Providers Care Wellness Coach Name Role Phone Marleny Orozco MD Primary Care Provider Encounter Details Date Type Department Care Team (Late st Contact Info) Description 10/10/[address] [facility] [address] [place] [address] [place] [address] Mallika Schmitz MD Social History Tobacco Use Types Packs/Day Years Used Date Smoking Tobacco: Never Assessed Sex and Gender Information Value Date Recorded Sex Assigned at Not on file Legal Sex Male 4:01 AM MINES INSPECTOR Gender Identity Not on file Sexual Orientation Not on file documented as of this encounter Plan of Treatment Not on file documented as of this encounter Visit Diagnoses Not on filedocumented in this encounter Care Teams Wellness Coach Relationship Specialty Start Date End Date Marleny Orozco MD PCP - General Internal Medicine 12/17/17 documented as of this encounter
--- OUTSIDE RECORDS SUMMARY | 2024-07-18 23:09 | XMS_ITS | CONTINUITY OF CARE DOCUMENT ---
Author Name jamie ayala Address Unknown Organization [facility] Address [address] [place] [address] Phone [phone] Care Team Providers Care Test Engineer Nuclear Equipment Name Role Phone Alejandro Castillo MD Unavailable [phone] ARIEL AYALA, NATHALIA Unavailable NATHALIA GEORGE MD Unavailable PROBLEMS Condition Status Date Provider Notes Hypertension active Anisa Farah Anxiety disorder generalized active Matthew Farah Bipolar disorder active Anisa Quinonez r PTSD active Anisa Farah Carpal tunnel active Anisa Farah Cold hands active Anisa Farah Hypothyroidism active Anisa Farah Fatigue active Alejandro Castillo MD SHELBY, adult active Tiffani Ventimiglia [employer] RAMP SERVICES MANAGER Palpitations active Chon Norton Cardiology examination active Alejandro Coto ENCOUNTERS Date Type Provider Location Encounter Diag nosis - In-person encounter Office Visit Alejandro Castillo MD [facility] Cardiology examination - In-person encounter Office Visit Alejandro Castillo MD [facility] - In-person encounter Office Visit Alejandro Castillo MD [facility] Palpitations - In-person encounter Office Visit Alejandro Castillo MD [facility] - In-person encounter Office Visit Alejandro Castillo MD [facility] SHELBY, adult - In-person encounter Office Visit Alejandro Castillo MD [facility] Fatigue - In-person encounter Office Visit Alejandro Castillo MD [facility] - In-person encounter Office Visit Alejandro Castillo MD [facility] - In-person encounter Office Visit Alejandro Castillo MD [facility] HypertensionAnxiety disorder generalizedBipolar disorderPTSDCarpal tunnelCold handsHypothyroidism [...] Body Mass Index (Ratio) 29.84 kg/m2 Gabriel Flood blood pressure, diastolic 87 mm[Hg] Ja rret blood pressure, systolic 152 mm[Hg] Jar ret pulse rate 62 /min Lucien blood pressure, cuff size regular Ja rret oxygen saturation, oximetry 97 % Lucien respiratory rate E&M 14 /min Lucien 2023/07/17 weight E&M 208 [lb_av] height E&M 70 [in_i] Lucien Body Mass Index (Ratio) 29.84 kg/m2 [facility] am Cierra blood pressure, cuff size regular Ja rret blood pressure, diastolic 80 mm[Hg] Ja rret blood pressure, systolic 158 mm[Hg] Jar pulse rate 63 /min Lucien respiratory rate E&M 12 /min Lucien oxygen saturation, oximetry 99 % weight E&M 208 [lb_av] Lucien height E&M 70 [in_i] Lucien Body Mass Index (Ratio) 28.98 kg/m2 [facility] am blood pressure, cuff size regular [facility], diastolic 89 mm[Hg] [facility], systolic 149 mm[Hg] [facility] pulse rate 61 /min Lucien oxygen saturation, [...] Li nkLogic blood pressure, systolic 164 mm[Hg] Jessica kLogic blood pressure, diastolic 88 mm[Hg] Ca therine [place] blood pressure, systolic 164 mm[Hg] Cat herine Kelechi oxygen saturation, oximetry 99 % Petra [place] respiratory rate E&M 16 /min Catheri ne Kelechi pulse rate 70 /min Petra [place] weight E&M 198 [lb_av] Petra Kelechi height [...] TAKE 1 TABLET BY MOUTH EVERY [facility] omeprazole 40 mg capsule,delayed release(DR/EC) active Alejandro Castillo MD losartan-hydrochl orothiazide 100-25 mg tablet completed Take 1 tablet by mouth once a day - [facility] loratadine 10 mg tablet active TAKE 1 TABLET BY MOUTH EVERY DAY NEEDED Tiffani Ventimiglia CARGO AND RAMP SERVICES MANAGER lisinopril-hydroc hlorothiazide 20-12.5 mg tablet completed Take 1 tablet by mouth once a day - Tiffani Ventimiglia [employer] AND RAMP SERVICES MANAGER levothyroxine 25 mcg tablet active Dominiquegalina Patton clonazepam 0.5 mg tablet active Take tablet by mouth twice a day Tiffani Ventimiglia CAR[employer] AND RAMP SERVICES MANAGER lamotrigine 100 mg tablet active Take tablet by mouth three times a day Petra [place] lisinopril 10 mg tablet completed Take tablet by mouth once a day - Alejandro Castillo MD atenolol 25 mg tablet active Take tablet by mouth once a day Petra [place] melatonin 5 mg capsule active Take capsule by mouth once a day Petra [place] ibuprofen unspecified unspecified active Take capsule by mouth once a day Petra [place] SOCIAL HISTORY Date Observation Value Provider drug [...] MD drug use no Tiffani Ventimig angela [facility] alcohol use no Tiffani Ventimig angela [employer] SERVICES MANAGER smoking status Never smoker Maliha Kelly social history E&M S moking History: Kandice lazcano has never smoked. Alejandro Castillo MD social history reviewed E&M revgopal ewed - no changes required Alejandro Castillo MD smoking status Never smoker Dorita Thomas social history E&M S moking History: Kandice lazcano has never smoked. 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 [id number] [place] Medicare [id number] ADVANCE DIRECTIVES Name Date DISCUSSED - NO DECISION MADE TREATMENT PLAN Date Name Performer [id number],C, H is updated medication list for this problem includes: Levothyroxine 25 Mcg Tablet (Levothyroxine) Chon Norton [id number],Scameron sx Regulo Norton [id number],S,w ill refer him to sleep medicine specialist Chon Norton [id number],S,B P still elevated we will increase Losartan/HCTZ [...] by mouth once a day Chon Norton [id number],STiffani [facility] [id number],S, H is updated medication list for this problem includes: Levothyroxine 25 Mcg Tablet (Levothyroxine) Tiffani Ventimiglia [facility] [id number],C,r ecent sleep study showed mild SHELBY. He has had weight gain, HTN, and continued fatigue. Would benefit from titration study for CPAp will arranged. Tiffani Abdalla [facility] [id number],C,B P 168/90 has been averaging 148/61 at [...] by mouth once a day Tiffani Abdalla [facility] [id number],C,H as been feeling fatigued since starting medication. Difficulty sleeping through the night, gets up frequently. Increased stress at home for the past month. WIll arrange for home sleep study and order labwork. Alejandro Castillo MD [id number],C, H is updated medication list for this problem includes: Levothyroxine 25 Mcg Tablet (Levothyroxine) Alejandro Castillo MD [id number],C,O nikki doing well, BP has improved since [...] mouth once a day Alejandro Castillo MD [id number],C,H as been feeling fatigued since starting medication. Difficulty sleeping through the night, gets up frequently. Increased stress at home for the past month. Saul rrcaleb for home sleep study and order labwork. Alejandro Castillo MD [id number],C,O verall doing well. BP still elevated. Will [...] mouth once a day Alejandro Castillo MD [id number],C, H is updated medication list for this problem includes: Levothyroxine 25 Mcg Tablet (Levothyroxine) Alejandro Castillo MD [id number],C, H is updated medication list for this problem includes: Levothyroxine 25 Mcg Tablet (Levothyroxine) Alejandro Castillo MD [id number],C, T he pt could not tolerate amlodipine b/c it caused nocturia and incontinence at night. ARterial duplex of the upper and lower extremities were normal. Echo was normal. He does not want to try Procardia at this time. He will try gloves when it is cold outside. Alejandro Castillo MD [id number],C,. Pt denies SOB and chest pain. N [...] by mouth once a day Anisa Pachecobecka [id number],C, H is updated medication list for this problem includes: Levothyroxine 25 Mcg Tablet (Levothyroxine) ..... Take 1 tablet by mouth every day Anisa Mosqueramanuel [id number],C,T he pt reports pain and white discoloration [...] a day Chon Norton Cardiology Tiffanibhumi black [facility] Cardiology: H is updated medication list for this problem includes: Levothyroxine 25 Mcg Tablet (Levothyroxine) Tiffani Abdalla [facility] Cardiology:recent eep study showed mild SHELBY. He has had weight gain, HTN, and continued fatigue. Would benefit from titration study for CPAp will arranged. Tiffani Abdalla [facility] Cardiology:BP 168/90 has been averaging 148/61 at [...] by mouth once a day Tiffani Abdalla CARGO AND RAMP SERVICES MANAGER Cardiology:Has been feeling fatigued since starting medication. [...]
--- OUTSIDE RECORDS SUMMARY | 2024-07-18 23:10 | XMS_ITS | Continuity of Care Document ---
Author Organization [facility] Address [address] [place] [address] Phone Care Team Providers Care Loop Puller Name Role Phone Oracio Newman MD Unavailable [...] Procedure Date POSTOP FOLLOW-UP VISIT OFFICE/OUTPATIENT VISIT [facility] Advance Directives Directive Yes / No Effective Date File Name No Information Encounters Encounter Description Practice Location Reason(s) For Visit Diagnoses Date Provider Providers Copied on Encounter [facility], [address] [place] [address], [address], tel:[phone] [facility] Encounter for other orthopedic aftercare 8 Trent Narayanan. [address] [place] [address], [id number] . tel: [phone] OFFICE/OUTPAT IENT VISIT [facility], [address] [place] [address], [address], tel:[phone] [facility] Carpal tunnel syndrome of right wristBody mass index (BMI) 27.0-27.9, adult 8 Trent Narayanan. [address] [place], [place], [id number] . tel: [phone] [facility], [address], [place], [address], tel:[phone] [facility] Carpal tunnel syndrome of right wrist 8 Trent Narayanan. [address] [place], [place], [id number] . tel: [phone] Family History Family Member Type Diagnosis Age At Onset Mother Problem (finding) Alive and well Payers Payer name Insurance type Covered democrat ID Davi rojas(s) Medicare E2 [id number] Aetna Life Medicare Supplement Plan [id number] Social History Type Description Quantity Date Captured [...]
--- OUTSIDE RECORDS SUMMARY | 2024-07-18 23:10 | XMS_ITS | Clinical Summary ---
Author Organization [address] Address [address] [place] [address] Care Team Providers Care Underwear Finisher Name Role Phone Del Orozco MD Primary [...] (08/06/2019): Added automatically from request for surgery [id number] Benign prostatic hyperplasia with lower urinary tract symptoms 08/06/2019 Overview (08/06/2019): Added automatically from request for surgery [id number] Accessory navicular bone of foot 04/30/2019 Contusion [...] on file Legal Sex Male 12:03 PM COSMETOLOGY PROFESSOR Gender Identity Male 09/14/2019 9:01 AM CDT Sexual Orientation Straight 09/14/2019 9: 01 AM CDT Obstetrics History Last Filed Vital Signs Vital Sign Reading Time Taken Comments Blood Pressure 152/85 03/03/2019 12:56 PM COSMETOLOGY PROFESSOR Pulse 68 03/03/2019 12:56 PM COSMETOLOGY PROFESSOR Temperature 37 C (98.6 F) 09/14/2019 10:20 AM CDT Respiratory Rate - - Oxygen Saturation 98% 10/30/2016 11:28 AM CDT Inhaled Oxygen Concentration - - Weight 89.8 kg (198 lb) 03/17/2021 9:57 AM COSMETOLOGY PROFESSOR Height 177.8 cm (5' 10 ) 03/17/2021 9:57 AM COSMETOLOGY PROFESSOR Body Mass Index 28.41 03/17/2021 9:57 AM COSMETOLOGY PROFESSOR Plan of Treatment Health Maintenance Due Date [...] Comments PSA SCREEN Routine 03/29/2020 9:40 AM COSMETOLOGY PROFESSOR Hypertrophy of prostate with urinary obstruction HEPATITIS PANEL, ACUTE Routine 10/24/2016 9:04 AM CDT from Last 3 Months or Most Recently Relevant to Health Maintenance Results * PSA screen (03/29/2020 9:40 AM COSMETOLOGY PROFESSOR) PSA 1.4 0.0 - 4.0 ng/mL [facility] - 01 Comment: Lizet ECLIA methodology. According to the [place] [employer], Serum PSA should decrease and [...] disease. Blood specimen (specimen) 03/29/2020 9:40 AM COSMETOLOGY PROFESSOR 03/29/2020 Narrative [facility] - 03/30/2020 8:14 AM COSMETOLOGY PROFESSOR Performed at: - [facility] [id number] Boiling House Oiler: Pito Posadas PhD, Phone: [phone] us Long Lema MD LAB BLOOD ORDERABLE [...] with a HCV Nucleic Acid Amplification test ([id number]). Blood specimen (specimen) 10/24/2016 9:04 AM CDT 10/24/2016 Narrative [facility] - 10/25/2016 4:11 AM CDT Performed at: - [facility] [address] [id number] Boiling House Oiler: Pito Posadas PhD, Phone: [phone] Darron De La Torre LAB MICROBIOLOGY - GENERAL ORDER EVARISTO Final Result [facility] - 01 from Last 3 Months or Most Recently Relevant to Health Maintenance Insurance AETNA SENIOR SUPPLEMENT MEDICARE AETNA SENIOR SUPPLEMENT MEDICARE MEDICARE AETNA SENIOR SUPPLEMENT Care Teams Underwear Finisher Relationship Specialty [place] [address] [place] [address] PCP - General Internal Medicine 02/27/19
--- OUTSIDE RECORDS SUMMARY | 2024-07-18 23:10 | XMS_ITS | Referral Summary ---
Author Organization [address] Address [address] [place] [address] Care Team Providers Care Card Reader Name Role Phone Del Orozco MD Primary [...] (08/06/2019): Added automatically from request for surgery [id number] Benign prostatic hyperplasia with lower urinary tract symptoms 08/06/2019 Overview (08/06/2019): Added automatically from request for surgery [id number] Accessory navicular bone of foot 04/30/2019 Contusion [...] on file Legal Sex Male 12:03 PM SERVICE DELIVERY CONSULTANT Gender Identity Male 09/14/2019 9:01 AM CDT Sexual Orientation Straight 09/14/2019 9: 01 AM CDT Last Filed Vital Signs Vital Sign Reading Time Taken Comments Blood Pressure 152/85 03/03/2019 12:56 PM SERVICE DELIVERY CONSULTANT Pulse 68 03/03/2019 12:56 PM SERVICE DELIVERY CONSULTANT Temperature 37 C (98.6 F) 09/14/2019 10:20 AM CDT Respiratory Rate - - Oxygen Saturation 98% 10/30/2016 11:28 AM CDT Inhaled Oxygen Concentration - - Weight 89.8 kg (198 lb) 03/17/2021 9:57 AM SERVICE DELIVERY CONSULTANT Height 177.8 cm (5' 10 ) 03/17/2021 9:57 AM SERVICE DELIVERY CONSULTANT Body Mass Index 28.41 03/17/2021 9:57 AM SERVICE DELIVERY CONSULTANT Plan of Treatment Not on file Procedures Procedure Name Priority Date/Time Associated Diagnosis Comments PSA SCREEN Routine 03/29/2020 9:40 AM SERVICE DELIVERY CONSULTANT Hypertrophy of prostate with urinary obstruction HEPATITIS PANEL, ACUTE Routine 10/24/2016 9:04 AM CDT from Last 3 Months or Most Recently Relevant to Health Maintenance Results * PSA screen (03/29/2020 9:40 AM SERVICE DELIVERY CONSULTANT) PSA 1.4 0.0 - 4.0 ng/mL [facility] - 01 Comment: Lizet ECLIA methodology. According to the [place] [employer], Serum PSA should decrease and [...] disease. Blood specimen (specimen) 03/29/2020 9:40 AM SERVICE DELIVERY CONSULTANT 03/29/2020 Narrative [facility] - 03/30/2020 8:14 AM SERVICE DELIVERY CONSULTANT Performed at: [facility] [id number] Box Lining Machine Operator: Pito Posadas PhD, Phone: [phone] Long Lema MD LAB BLOOD ORDERABLE S Final Result Performing Organization Address [facility] Co de Phone Number [...] with a HCV Nucleic Acid Amplification test ([id number]). Blood specimen (specimen) 10/24/2016 9:04 AM CDT 10/24/2016 Narrative [facility] - 10/25/2016 4:11 AM CDT Performed at: [facility] [id number] Box Lining Machine Operator: Pito Posadas PhD, Phone: [phone] Darron De La Torre LAB MICROBIOLOGY - GENERAL ORDER EVARISTO Final Result Performing Organization Address [facility] Co de Phone Number [facility] - 01 from Last 3 Months or Most Recently Relevant to Health Maintenance Insurance T SENIOR SUPPLEMENT MEDICARE T SENIOR SUPPLEMENT MEDICARE MEDICARE AETNA SENIOR SUPPLEMENT Care Teams Card Reader Relationship Specialty Start Date End Date Del Orozco MD [address] [address] PCP - General Internal Medicine 02/27/19
--- OUTSIDE RECORDS SUMMARY | 2024-07-18 23:10 | XMS_ITS | Encounter Summary ---
Author Organization [facility] Healthcare Address [address] [place] [address] Care Team Providers Care Beveler Name Role Phone Del Orozco MD Primary Care Provide r Encounter Details Date Type Department Care Team (Late st Contact Info) Description 10/01/2019 Telephone [facility] Diagnostics [address] [place] [address] Ke[place] Dur[place] Social History Tobacco Use Types Packs/Day Years Used Date Smoking Tobacco: Never Smokeless Tobacco: Never Alcohol Use Standard Drinks/Week Comments No 0 (1 standard drink = 0.6 oz pur e alcohol) Sex and Gender Information Value Date Recorded Sex Assigned at Not on file Legal Sex Male 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
--- NOTE | 2024-07-18 23:48 | ED_ITS ---
HPI - Head Injury General Chief complaint: Head Injury Stated complaint: hit head, fall down stairs, nausea Time Seen by Provider: 07/18/24 22:52 Source: patient Mode of arrival: ambulatory Limitations: no limitations History of Present Illness HPI Narrative: This is a 59-year-old male who presents to the ED for chief complaint of head injury after fall today. Patient reports around 17 30 he tripped down the [employer] steps and landed on the concrete floor. Patient states that he did hit his head, left side on the ground. Endorses abrasion to the left eyebrow. Also endorses injury to the left elbow and left knee. States he has been able to ambulate. Complains of nausea but no vomiting. Denies LOC. denies numbness, weakness, photophobia, slurred speech. Denies any further site of injury. No blood thinner use. Related Data Home Medications ?Medication ?Instructions ?Recorded ?Confirmed ?Last Taken ?Type atenolol 25 mg tablet mg 01/03/23 01/29/23 Unknown History clonazepam 0.5 mg tablet mg 01/03/23 01/29/23 Unknown History inhalational spacing device 01/03/23 01/03/23 Unknown History (ProChamber) lamotrigine 100 mg tablet mg 01/03/23 01/29/23 Unknown History levothyroxine 25 mcg tablet mcg 01/03/23 01/29/23 Unknown History melatonin 5 mg capsule 5 mg PO DAILY 01/29/23 01/29/23 Unknown History multivitamin 1 tablet PO DAILY 01/29/23 01/29/23 Unknown History losartan 50 mg-hydrochlorothiazide tablet PO DAILY 04/02/23 08/12/23 Unknown History 12.5 mg tablet clonazepam 0.5 mg tablet 0.5 mg PO BID 05/15/23 08/12/23 Unknown History lactobacillus combination no.4 3 3,000 mmu cells PO DAILY 05/15/23 08/12/23 Unknown History billion cell capsule (Probiotic) Allergies Allergy/AdvReac Type Severity Reaction Status Date / Time adhesive tape Allergy Unknown Rash Verified 07/18/24 20:05 budesonide Allergy Hives Verified 07/18/24 20:05 desoximetasone Allergy Hives Verified 07/18/24 20:05 Review of Systems Review of Systems: All systems as dictated in HPI [facility] Surgical History Surgical History History of carpal tunnel release Family History Family History Father Hypertension Family history of malignant neoplasm of urinary bladder Mother Breast cancer Grandparent Alcohol abuse Social History Social History Smoking status: Never smoker Alcohol intake: never Substance use: never Substance use type: does not use Do You Feel Safe in your Home?: Yes Lack of Transportation: No Lack of Food: Never True Current Housing: I Have Housing Concerned About Future Housing: No Difficulty Paying Gas/Electric Bills: No Difficulty Paying for Meds: No Currently Unemployed: No Education: Master's Degree or Higher Difficulty w/ Childcare or Family Care: No Exam Narrative: GENERAL: Well-appearing, well-nourished, and in no acute distress. HEAD: Normocephalic, atraumatic. EYES: PERRLA and EOMI. No ecchymosis. ENT: Nares clear, no rhinorrhea or epistaxis. Mucous membranes moist. Oropharynx without tonsillar hypertrophy exudate or other lesions. NECK: Supple. No adenopathy or masses. CHEST: No respiratory distress. Clear to auscultation. No wheezes rales or rhonchi HEART: Regular rate and rhythm. No murmur heard. Normal peripheral pulses. ABDOMEN: Soft, nontender, nondistended, normal active bowel sounds. MSK: Abrasions to the left elbow and left knee, however passive and active range of motion of both joints are fully intact. No midline spinal tenderness throughout. MSK exam is otherwise benign. Normal range of motion. No edema. SKIN: Warm, dry, no rash. Mild abrasions. NEURO: Alert and oriented x4. No focal deficits. PSYCH: Normal mood and affect. Course Vital Signs Vital signs: Vital Signs Temperature 97.2 F L 07/18/24 20:05 Pulse Rate 94 07/18/24 20:05 Respiratory Rate 16 07/18/24 20:05 Blood Pressure 180/98 H 07/18/24 20:05 Pulse Oximetry 100 07/18/24 20:05 Oxygen Delivery Room Air 07/18/24 20:05 Temperature 97.2 F L 07/18/24 20:05 Pulse Rate 94 07/18/24 20:05 Respiratory Rate 16 07/18/24 20:05 Blood Pressure 168/89 H 07/18/24 22:01 Pulse Oximetry 97 07/18/24 22:15 Oxygen Delivery Room Air 07/18/24 20:05 MDM - Head Injury MDM Narrative Medical decision making narrative: This is a 59-year-old male who presents to the ED for chief complaint of head injury due to fall today. Vitals showing elevated blood pressure but otherwise normal. Exam shows no neurologic deficits. He has mild abrasions to the left side of the face as well as left elbow and left knee. CT imaging of the facial bones, head, cervical spine are all negative for acute findings. X-rays of the left knee and left elbow show no acute osseous findings. Patient was given Tylenol Motrin here and will be discharged with PCP follow-up. Patient will be discharged in stable condition. Supportive measures discussed and return precautions given. Patient is understanding and agreeable with plan for discharge with PCP follow-up. Discharge Plan Discharge Clinical Impression: Closed head injury, Abrasion head Patient Disposition: Home, Self-Care Condition: Stable Instructions: Antibiotic Form, Head Injury (ED) Additional Instructions: Exam and imaging today are reassuring overall. Please follow-up closely with your PCP on these injuries. Sent elevate the affected extremities. Use Tylenol and ibuprofen every 6 hours as needed pain control. Symptoms of concussion should slowly resolve over the next week. If you have any new or worsening symptoms please return to the ER for further evaluation. Patient Language: Jordanian Prescriptions: No Action clonazepam 0.5 mg tablet 0.5 mg PO BID Probiotic 3 billion cell capsule 3,000 mmu cells PO DAILY Rx Instructions: administer with a meal multivitamin Tablet 1 tablet PO DAILY melatonin 5 mg capsule 5 mg PO DAILY clonazepam 0.5 mg tablet atenolol 25 mg tablet levothyroxine 25 mcg tablet lamotrigine 100 mg tablet (DME) ProChamber Spacer MISCELLANEOUS losartan-hydrochlorothiazide 50-12.5 mg tablet PO DAILY Rx Instructions: hydrochlorothiazide 25mg (DME) CPAP Equipment See Rx Instructions .Route .MEDSUPPLY Qty: 1 0RF Rx Instructions: Rx: Change pressure to CPAP 10 cm H2O with EPR of 2 Dx: G47.33 DME: IV & Resp [facility] *Please link me to the patient's CPAP machine through [facility]* Physician: Dr. Nilda Curtis DO omeprazole 40 mg capsule,delayed release(DR/EC) 40 mg PO DAILY Qty: 30 5RF Follow-up/Referrals: Pam,MD Marleny [Primary Care Provider] - Time of Disposition: 00:17
[2024-07-19] MEDS: IBUPROFEN 400 MG TABLET 800 MG PO (00:14)
[2024-07-19] MEDS: ACETAMINOPHEN 500 MG TABLET 1000 MG PO (00:14)
[2024-07-19 00:15] VITALS: BP 150/94; PULSE 88; RESP 16; O2SAT 98
[2024-07-19] MEDS: ONDANSETRON HCL ODT 4 MG TABLET PO (00:15)
== END 2024-07-19 01:02 | disposition home or self-care (01) ==
PROVIDERS: Emergency Provider Physician Assistant; PCP Internal Medicine
DX: S00.212A Abrasion of left eyelid and periocular area, initial encounter (principal); S50.312A Abrasion of left elbow, initial encounter; S80.212A Abrasion, left knee, initial encounter; Z79.899 Other long term (current) drug therapy; W10.9XXA Fall (on) (from) unspecified stairs and steps, initial encounter
CPT/HCPCS: 70450; 70486; 72125; 73080; 73562; 99284; A9270